=== PATIENT | female | born 1965 | race Caucasian/White ===

== ENCOUNTER → 2016-08-26 | Outpatient (REF) | payer OTHER ==
[~2016-08-26] MED LIST: /CARB20TAB PO; /METO25TAB PO; ATOR1TAB21 PO; BP MED PO; CYCL10TA3 PO; DILA4TAB PO; GABA300C2 PO; GABA600T PO; HYDROCODONE-ACETAMIN PO; IBUP80TA PO; IBUPPOW25 PO; LISI10TA4 PO; LISI5TAB PO; LYRI75CA PO; MECL-68 PO; METF1000 PO; METF500T4 PO; METO50TA2 PO; PERC5TAB PO; PRAV40TA2 PO; ROPI2TAB PO; TIZA4CAP PO; ULTR50TA PO; VITA100066 PO; ZEST10TA4 PO; ZOFR20TA PO; vitamin b12
[2016-08-26 14:20] LABS: VITAMIN B12 LEVEL 1209 PG/ML
[2016-08-26 14:26] LABS: FREE T4 1.05 NG/DL (0.76-1.46); TOTAL PROTEIN 7.4 GM/DL (6.4-8.2)
[2016-08-26 14:33] LABS: FOLATE 21.7 NG/ML
[2016-08-29 11:11] LABS: ALBUMIN % 55.5 % (55.8-66.1)
[2016-08-29 11:12] LABS: ALBUMIN 4.11 GM/DL (3.29-5.55)
== END | disposition home or self-care (01) ==
LOC: M LABNEURO 13:06
PROVIDERS: ATTEND Psychiatry & Neurology Neurology
DX: G43.909 Migraine, unspecified, not intractable, without status migrainosus (principal); R41.3 Other amnesia

== ENCOUNTER → 2016-10-16 | Outpatient (REF) | payer OTHER ==
[2016-10-16 13:00] LABS: ALBUMIN 3.8 GM/DL (3.2-5.2); ALBUMIN/GLOBULIN RATIO 1.09 (1.00-1.93); ALKALINE PHOSPHATASE 95 U/L (45-117); ALT/SGPT 39 U/L (12-78); ANION GAP 7 MEQ/L (8-16); AST/SGOT 24 U/L (15-37); BILIRUBIN,TOTAL 0.3 MG/DL (0.2-1.0); BLOOD UREA NITROGEN 14 MG/DL (7-18); CALCIUM LEVEL 8.8 MG/DL (8.5-10.1); CARBON DIOXIDE LEVEL 31 MEQ/L (21-32); CHLORIDE LEVEL 105 MEQ/L (98-107); CHOLESTEROL LEVEL 199 MG/DL (<200); GLOMERULAR FILTRATION RATE > 60.0 (>51); GLUCOSE, FASTING 124 MG/DL (70-105); POTASSIUM SERUM 4.9 MEQ/L (3.5-5.1); SODIUM LEVEL 143 MEQ/L (136-145); TOTAL PROTEIN 7.3 GM/DL (6.4-8.2); TRIGLYCERIDES LEVEL 227 MG/DL (<150)
== END ==
LOC: M LAB REF 12:19
PROVIDERS: ATTEND Family Medicine
DX: E11.40 Type 2 diabetes mellitus with diabetic neuropathy, unspecified (principal); I10 Essential (primary) hypertension; E78.01 Familial hypercholesterolemia; R00.2 Palpitations

== ENCOUNTER 2016-11-24 22:59 | Emergency (ER) | payer BC, OTHER ==
[~2016-11-24] VITALS: Ht 165.1 cm; Wt 93.0 kg
[2016-11-24] MEDS ORDERED: HALOPERIDOL 5 MG/ML VIAL (J1630) IV STA (23:40)
[2016-11-24] MEDS ORDERED: diphenhydrAMINE INJ 50MG/ML VIAL (J1200) IV STA (23:40)
[2016-11-24] MEDS ORDERED: NS 500 ML IV ONE (23:45)
[2016-11-25] MEDS ORDERED: hydrALAZINE INJ 20 MG/ML VIAL IV ONE (00:45)
[2016-11-25 01:30] VITALS: BP 119/62
== END 2016-11-25 01:37 | disposition home or self-care (01) ==
LOC: M ED 23:00
DX: R42 Dizziness and giddiness (principal); R11.2 Nausea with vomiting, unspecified; I10 Essential (primary) hypertension; G50.0 Trigeminal neuralgia; I67.1 Cerebral aneurysm, nonruptured; Z79.899 Other long term (current) drug therapy; Z79.84 Long term (current) use of oral hypoglycemic drugs
CPT/HCPCS: 96361; 96374; 96375; 99282; J1200; J1630

== ENCOUNTER → 2017-08-28 | Outpatient (CLI) | payer BC, OTHER ==
[2017-08-28 18:48] LABS: BLOOD UREA NITROGEN 11 MG/DL (7-18)
[2017-08-28 18:48] LABS: CREATININE FOR GFR 0.65 MG/DL (0.55-1.02); GLOMERULAR FILTRATION RATE > 60.0 (>51)
== END ==
LOC: M LAB 17:12
DX: Z01.818 Encounter for other preprocedural examination (principal)
CPT/HCPCS: 82565

== ENCOUNTER → 2017-09-12 | Outpatient (REF) | payer OTHER | LOC: M SFHCWAGY 08:44 | DX: Z12.4 Encounter for screening for malignant neoplasm of cervix (principal) ==

== ENCOUNTER → 2017-09-12 | Outpatient (CLI) | payer BC | LOC: M WHC 08:19 | DX: Z12.31 Encounter for screening mammogram for malignant neoplasm of breast (principal) | CPT/HCPCS: 77067 ==

== ENCOUNTER 2017-11-17 16:38 | Inpatient (IN) | payer BC, OTHER ==
[2017-11-17 18:47] LABS: BASO % 0.5 % (0.0-1.0); EOS # 0.1 10^3/uL (0.0-0.50); HEMATOCRIT 36.4 % (36.0-47.0); HEMOGLOBIN 12.4 g/dl (12.0-15.5); IMMATURE GRANULOCYTE % 0.2 % (0-3.0); LYMPH # 3.3 10^3/uL (1.5-4.5); LYMPH % 50.4 % (24.0-44.0); MEAN CORPUSCULAR HEMOGLOBIN 30.3 pg (27.0-33.0); MEAN CORPUSCULAR HGB CONC 34.1 g/dl (32.0-36.5); MONO # 0.5 10^3/uL (0.0-0.8); MONO % 8.1 % (0.0-5.0); NEUTROPHILS # 2.6 10^3/uL (1.8-7.7); NEUTROPHILS % 38.8 % (36.0-66.0); PLATELET COUNT, AUTOMATED 249 10^3/uL (150-450); RED BLOOD COUNT 4.09 10^6/uL (4.00-5.40); RED CELL DISTRIBUTION WIDTH 13.1 % (11.5-14.5); WHITE BLOOD COUNT 6.6 10^3/uL (4.0-10.0)
[2017-11-17] MEDS: diazePAM 5 MG TAB PO (18:56)
[2017-11-17] MEDS: KETOROLAC 30 MG/ML VIAL (J1885) IV (18:57)
[2017-11-17] MEDS ORDERED: MORPHINE 4 MG/ML 1ML VIAL/SYRINGE (J2270) IV (19:15)
[2017-11-17 19:18] LABS: ANION GAP 7 MEQ/L (8-16); BLOOD UREA NITROGEN 13 MG/DL (7-18); CARBON DIOXIDE LEVEL 26 MEQ/L (21-32); CHLORIDE LEVEL 109 MEQ/L (98-107); CREATININE FOR GFR 0.66 MG/DL (0.55-1.30); GLOMERULAR FILTRATION RATE > 60.0 (>51); GLUCOSE, FASTING 124 MG/DL (70-100); POTASSIUM SERUM 3.7 MEQ/L (3.5-5.1); SODIUM LEVEL 142 MEQ/L (136-145)
[2017-11-17] MEDS ORDERED: ACETAMINOPHEN TAB 650MG DOSE (2X325MG) PO (20:15)
[2017-11-17] MEDS ORDERED: DEXTROSE 50% 50 ML SYRINGE IV (20:15)
[2017-11-17] MEDS ORDERED: GLUCOSE 4 GM CHEW TABLET PO (20:15)
[2017-11-17] MEDS ORDERED: GLUCAGON FOR INJ 1 MG VIAL (J1610) SC (20:15)
[2017-11-17] MEDS ORDERED: diazePAM 5 MG TAB PO (20:30)
[2017-11-17] MEDS: MORPHINE 4 MG/ML 1ML VIAL/SYRINGE (J2270) IV (20:50)
[2017-11-17] MEDS: HumaLOG INSULIN (NovoLOG) PER UNIT SC (21:00)
[2017-11-17] MEDS ORDERED: NAPROXEN 250 MG TAB PO (22:00)
[2017-11-17] MEDS ORDERED: PILL CRUSHER/CUTTER 1 EACH XX (22:30)
[2017-11-17] MEDS: rOPINIRole 1MG TAB PO (22:55)
[2017-11-17] MEDS: VITAMIN D 1,000 INTERNATIONAL UNITS TABLET PO (22:55)
[2017-11-17] MEDS: GABAPENTIN 300 MG CAP PO (22:56)
[2017-11-17] MEDS: LISINOPRIL 10 MG TAB PO (22:58)
[2017-11-17] MEDS: DOCUSATE SODIUM 100 MG CAP PO (22:59)
[2017-11-17] MEDS: MECLIZINE 25 MG TABLET PO (23:00)
[2017-11-17] MEDS: busPIRone 5 MG TAB PO (23:27)
[2017-11-18] MEDS: PERCOCET 5MG/325MG TAB PO ×4 (02:49→23:24)
[2017-11-18] MEDS: MECLIZINE 25 MG TABLET PO ×4 (05:27→23:22)
[2017-11-18 06:28] LABS: HEMOGLOBIN 11.8 g/dl (12.0-15.5); MEAN CORPUSCULAR HEMOGLOBIN 29.8 pg (27.0-33.0); MEAN CORPUSCULAR HGB CONC 32.8 g/dl (32.0-36.5); MEAN CORPUSCULAR VOLUME 90.9 fl (80.0-96.0); PLATELET COUNT, AUTOMATED 244 10^3/uL (150-450); RED BLOOD COUNT 3.96 10^6/uL (4.00-5.40); RED CELL DISTRIBUTION WIDTH 13.1 % (11.5-14.5); WHITE BLOOD COUNT 6.8 10^3/uL (4.0-10.0)
[2017-11-18 06:41] LABS: ANION GAP 5 MEQ/L (8-16); BLOOD UREA NITROGEN 14 MG/DL (7-18); CALCIUM LEVEL 8.9 MG/DL (8.5-10.1); CARBON DIOXIDE LEVEL 29 MEQ/L (21-32); CHLORIDE LEVEL 108 MEQ/L (98-107); CREATININE FOR GFR 0.79 MG/DL (0.55-1.30); GLOMERULAR FILTRATION RATE > 60.0 (>51); GLUCOSE, FASTING 153 MG/DL (70-100); POTASSIUM SERUM 4.3 MEQ/L (3.5-5.1); SODIUM LEVEL 142 MEQ/L (136-145)
[2017-11-18 06:44] LABS: BEDSIDE GLUCOSE 115 MG/DL (70-105)
[2017-11-18] MEDS: HumaLOG INSULIN (NovoLOG) PER UNIT SC ×4 (07:30→21:00)
[2017-11-18] MEDS: DOCUSATE SODIUM 100 MG CAP PO ×2 (08:48→20:37)
[2017-11-18] MEDS: MORPHINE 4 MG/ML 1ML VIAL/SYRINGE (J2270) IV ×3 (08:48→20:39)
[2017-11-18] MEDS: ENOXAPARIN 40 MG/0.4 ML SYRINGE (J1650) SC (08:49)
[2017-11-18] MEDS: busPIRone 5 MG TAB PO ×2 (08:49→20:38)
[2017-11-18 12:03] LABS: BEDSIDE GLUCOSE 176 MG/DL (70-105)
[2017-11-18] MEDS: ONDANSETRON 4MG/2ML VIAL (J2405) IV ×3 (12:57→20:38)
[2017-11-18 17:22] LABS: BEDSIDE GLUCOSE 121 MG/DL (70-105)
[2017-11-18] MEDS: GABAPENTIN 300 MG CAP PO (20:36)
[2017-11-18] MEDS: VITAMIN D 1,000 INTERNATIONAL UNITS TABLET PO (20:38)
[2017-11-18] MEDS: rOPINIRole 1MG TAB PO (20:39)
[2017-11-18] MEDS: LISINOPRIL 10 MG TAB PO (20:41)
[2017-11-18 22:15] LABS: BEDSIDE GLUCOSE 151 MG/DL (70-105)
[2017-11-19] MEDS: MECLIZINE 25 MG TABLET PO ×2 (06:00→12:18)
[2017-11-19] MEDS: PERCOCET 5MG/325MG TAB PO ×2 (06:23→17:15)
[2017-11-19] MEDS: CARISOPRODOL 350 MG TAB PO (06:52)
[2017-11-19 07:08] LABS: HEMATOCRIT 36.4 % (36.0-47.0); HEMOGLOBIN 11.8 g/dl (12.0-15.5); MEAN CORPUSCULAR HEMOGLOBIN 29.6 pg (27.0-33.0); MEAN CORPUSCULAR HGB CONC 32.4 g/dl (32.0-36.5); MEAN CORPUSCULAR VOLUME 91.5 fl (80.0-96.0); PLATELET COUNT, AUTOMATED 243 10^3/uL (150-450); RED BLOOD COUNT 3.98 10^6/uL (4.00-5.40); RED CELL DISTRIBUTION WIDTH 13.2 % (11.5-14.5); WHITE BLOOD COUNT 6.1 10^3/uL (4.0-10.0)
[2017-11-19 07:26] LABS: ANION GAP 3 MEQ/L (8-16); BLOOD UREA NITROGEN 13 MG/DL (7-18); CALCIUM LEVEL 8.6 MG/DL (8.5-10.1); CARBON DIOXIDE LEVEL 30 MEQ/L (21-32); CHLORIDE LEVEL 110 MEQ/L (98-107); CREATININE FOR GFR 0.66 MG/DL (0.55-1.30); GLOMERULAR FILTRATION RATE > 60.0 (>51); GLUCOSE, FASTING 114 MG/DL (70-100); POTASSIUM SERUM 4.2 MEQ/L (3.5-5.1); SODIUM LEVEL 143 MEQ/L (136-145)
[2017-11-19] MEDS: HumaLOG INSULIN (NovoLOG) PER UNIT SC ×4 (08:07→20:59)
[2017-11-19] MEDS: NALOXONE INJ 0.4 MG/1 ML VIAL (J2310) IV (08:13)
[2017-11-19] MEDS: DOCUSATE SODIUM 100 MG CAP PO ×2 (08:14→20:57)
[2017-11-19] MEDS ORDERED: GABAPENTIN 300 MG CAP PO ×2 (09:00→12:00)
[2017-11-19 12:12] LABS: BEDSIDE GLUCOSE 90 MG/DL (70-105)
[2017-11-19 16:31] LABS: BEDSIDE GLUCOSE 141 MG/DL (70-105)
[2017-11-19] MEDS ORDERED: MECLIZINE 25 MG TABLET PO (17:00)
[2017-11-19] MEDS ORDERED: tiZANidine 4 MG TAB PO (17:00)
[2017-11-19] MEDS ORDERED: MELOXICAM (MOBIC) 7.5 MG TAB PO (17:00)
[2017-11-19] MEDS: GABAPENTIN 300 MG CAP PO (20:54)
[2017-11-19] MEDS: LISINOPRIL 10 MG TAB PO (20:54)
[2017-11-19] MEDS: rOPINIRole 1MG TAB PO (20:54)
[2017-11-19] MEDS: VITAMIN D 1,000 INTERNATIONAL UNITS TABLET PO (20:55)
[2017-11-20] MEDS: PERCOCET 5MG/325MG TAB PO ×4 (02:17→22:42)
[2017-11-20] MEDS: MORPHINE 4 MG/ML 1ML VIAL/SYRINGE (J2270) IV ×2 (03:44→06:55)
[2017-11-20 06:48] LABS: HEMATOCRIT 37.3 % (36.0-47.0); HEMOGLOBIN 11.9 g/dl (12.0-15.5); MEAN CORPUSCULAR HEMOGLOBIN 29.6 pg (27.0-33.0); MEAN CORPUSCULAR HGB CONC 31.9 g/dl (32.0-36.5); MEAN CORPUSCULAR VOLUME 92.8 fl (80.0-96.0); PLATELET COUNT, AUTOMATED 242 10^3/uL (150-450); RED BLOOD COUNT 4.02 10^6/uL (4.00-5.40); RED CELL DISTRIBUTION WIDTH 12.6 % (11.5-14.5); WHITE BLOOD COUNT 6.4 10^3/uL (4.0-10.0)
[2017-11-20] MEDS: D5W/0.45% SODIUM CHLORIDE 500 ML IV (06:55)
[2017-11-20 06:58] LABS: INR 1.01; PROTHROMBIN TIME 13.4 SECONDS (12.4-14.5)
[2017-11-20 07:12] LABS: ANION GAP 2 MEQ/L (8-16); BLOOD UREA NITROGEN 11 MG/DL (7-18); CALCIUM LEVEL 9.1 MG/DL (8.5-10.1); CARBON DIOXIDE LEVEL 34 MEQ/L (21-32); CHLORIDE LEVEL 105 MEQ/L (98-107); GLOMERULAR FILTRATION RATE > 60.0 (>51); GLUCOSE, FASTING 111 MG/DL (70-100); POTASSIUM SERUM 4.1 MEQ/L (3.5-5.1); SODIUM LEVEL 141 MEQ/L (136-145)
[2017-11-20] MEDS: HumaLOG INSULIN (NovoLOG) PER UNIT SC ×4 (07:30→20:33)
[2017-11-20] MEDS: DOCUSATE SODIUM 100 MG CAP PO ×2 (09:00→20:53)
[2017-11-20] MEDS ORDERED: methylPREDNISolone SUSP 40 MG/ML (DEPO-medrol) VIAL (J1030) As Ordered (10:36)
[2017-11-20] MEDS ORDERED: ISOVUE-M 300 61% 15ML VIAL (Q9967) As Ordered (10:36)
[2017-11-20] MEDS ORDERED: LIDOCAINE 1% SDV INJ 30 ML VIAL As Ordered (10:36)
[2017-11-20 12:23] LABS: BEDSIDE GLUCOSE 155 MG/DL (70-105)
[2017-11-20 13:47] LABS: BEDSIDE GLUCOSE 191 MG/DL (70-105)
[2017-11-20 18:08] LABS: BEDSIDE GLUCOSE 130 MG/DL (70-105)
[2017-11-20 20:33] LABS: BEDSIDE GLUCOSE 181 MG/DL (70-105)
[2017-11-20] MEDS: GABAPENTIN 300 MG CAP PO (20:52)
[2017-11-20] MEDS: LISINOPRIL 10 MG TAB PO (20:53)
[2017-11-20] MEDS: VITAMIN D 1,000 INTERNATIONAL UNITS TABLET PO (20:54)
[2017-11-20] MEDS: rOPINIRole 1MG TAB PO (20:54)
[2017-11-21] MEDS: PERCOCET 5MG/325MG TAB PO ×3 (03:17→12:38)
[2017-11-21 06:28] LABS: HEMATOCRIT 39.5 % (36.0-47.0); HEMOGLOBIN 13.2 g/dl (12.0-15.5); MEAN CORPUSCULAR HEMOGLOBIN 29.6 pg (27.0-33.0); MEAN CORPUSCULAR HGB CONC 33.4 g/dl (32.0-36.5); MEAN CORPUSCULAR VOLUME 88.6 fl (80.0-96.0); PLATELET COUNT, AUTOMATED 299 10^3/uL (150-450); RED BLOOD COUNT 4.46 10^6/uL (4.00-5.40); RED CELL DISTRIBUTION WIDTH 12.3 % (11.5-14.5); WHITE BLOOD COUNT 8.5 10^3/uL (4.0-10.0)
[2017-11-21 06:53] LABS: ANION GAP 4 MEQ/L (8-16); BLOOD UREA NITROGEN 13 MG/DL (7-18); CALCIUM LEVEL 9.7 MG/DL (8.5-10.1); CARBON DIOXIDE LEVEL 30 MEQ/L (21-32); CHLORIDE LEVEL 106 MEQ/L (98-107); CREATININE FOR GFR 0.68 MG/DL (0.55-1.30); GLOMERULAR FILTRATION RATE > 60.0 (>51); GLUCOSE, FASTING 152 MG/DL (70-100); POTASSIUM SERUM 4.5 MEQ/L (3.5-5.1); SODIUM LEVEL 140 MEQ/L (136-145)
[2017-11-21] MEDS: HumaLOG INSULIN (NovoLOG) PER UNIT SC ×4 (07:13→21:00)
[2017-11-21] MEDS: DOCUSATE SODIUM 100 MG CAP PO ×2 (08:04→20:41)
[2017-11-21 12:49] LABS: BEDSIDE GLUCOSE 185 MG/DL (70-105)
[2017-11-21] MEDS: NS 1,000 ML IV (16:19)
[2017-11-21] MEDS: KETOROLAC 30 MG/ML VIAL (J1885) IV (16:20)
[2017-11-21 20:13] LABS: BEDSIDE GLUCOSE 305 MG/DL (70-105)
[2017-11-21 20:13] LABS: BEDSIDE GLUCOSE 264 MG/DL (70-105)
[2017-11-21] MEDS: rOPINIRole 1MG TAB PO (20:41)
[2017-11-21] MEDS: LISINOPRIL 10 MG TAB PO (20:41)
[2017-11-21] MEDS: GABAPENTIN 300 MG CAP PO (20:41)
[2017-11-21] MEDS: VITAMIN D 1,000 INTERNATIONAL UNITS TABLET PO (20:41)
[2017-11-21 23:36] LABS: BEDSIDE GLUCOSE 260 MG/DL (70-105)
[2017-11-22] MEDS: KETOROLAC 30 MG/ML VIAL (J1885) IV ×2 (04:42→08:24)
[2017-11-22 06:00] LABS: HEMATOCRIT 37.1 % (36.0-47.0); HEMOGLOBIN 12.2 g/dl (12.0-15.5); MEAN CORPUSCULAR HEMOGLOBIN 29.7 pg (27.0-33.0); MEAN CORPUSCULAR HGB CONC 32.9 g/dl (32.0-36.5); MEAN CORPUSCULAR VOLUME 90.3 fl (80.0-96.0); PLATELET COUNT, AUTOMATED 269 10^3/uL (150-450); RED BLOOD COUNT 4.11 10^6/uL (4.00-5.40); RED CELL DISTRIBUTION WIDTH 12.7 % (11.5-14.5); WHITE BLOOD COUNT 8.3 10^3/uL (4.0-10.0)
[2017-11-22 06:27] LABS: ANION GAP 5 MEQ/L (8-16); BLOOD UREA NITROGEN 17 MG/DL (7-18); CALCIUM LEVEL 9.1 MG/DL (8.5-10.1); CARBON DIOXIDE LEVEL 27 MEQ/L (21-32); CHLORIDE LEVEL 109 MEQ/L (98-107); CREATININE FOR GFR 0.67 MG/DL (0.55-1.30); GLOMERULAR FILTRATION RATE > 60.0 (>51); GLUCOSE, FASTING 160 MG/DL (70-100); SODIUM LEVEL 141 MEQ/L (136-145)
[2017-11-22] MEDS: HumaLOG INSULIN (NovoLOG) PER UNIT SC (07:30)
[2017-11-22] MEDS: DOCUSATE SODIUM 100 MG CAP PO (08:23)
[2017-11-22] MEDS: tiZANidine 4 MG TAB PO (08:23)
== END 2017-11-22 10:33 | disposition home or self-care (01) | DRG 111 ==
LOC: M ED 16:38 → M ED INP 20:03 → M MSPAV 22:10
PROC: 3E0R33Z Introduction of Anti-inflammatory into Spinal Canal, Percutaneous Approach (ICD-10-PCS; principal; 2017-11-20)
DX: H81.13 Benign paroxysmal vertigo, bilateral (principal); I10 Essential (primary) hypertension; G50.0 Trigeminal neuralgia; E11.9 Type 2 diabetes mellitus without complications; E78.5 Hyperlipidemia, unspecified; R41.0 Disorientation, unspecified; K64.8 Other hemorrhoids; M62.838 Other muscle spasm; R26.81 Unsteadiness on feet; M25.552 Pain in left hip; M54.42 Lumbago with sciatica, left side; Z79.84 Long term (current) use of oral hypoglycemic drugs; Z98.1 Arthrodesis status; T40.2X5A Adverse effect of other opioids, initial encounter; T43.8X5A Adverse effect of other psychotropic drugs, initial encounter; T42.8X5A Adverse effect of antiparkinsonism drugs and other central muscle-tone depressants, initial encounter; Z79.899 Other long term (current) drug therapy

== ENCOUNTER → 2017-12-01 | Outpatient (CLI) | payer OTHER | LOC: M PAIN 09:45 | DX: M70.62 Trochanteric bursitis, left hip (principal); G47.33 Obstructive sleep apnea (adult) (pediatric); M51.26 Other intervertebral disc displacement, lumbar region; M54.16 Radiculopathy, lumbar region; M25.552 Pain in left hip; K58.9 Irritable bowel syndrome, unspecified; R42 Dizziness and giddiness; E11.9 Type 2 diabetes mellitus without complications; Z79.84 Long term (current) use of oral hypoglycemic drugs; Z79.891 Long term (current) use of opiate analgesic; Z79.899 Other long term (current) drug therapy | CPT/HCPCS: G0463 ==

== ENCOUNTER → 2017-12-04 | Outpatient (CLI) | payer BC, OTHER ==
[~2017-12-04] MED LIST changes: -/CARB20TAB PO; -/METO25TAB PO; -ATOR1TAB21 PO; -BP MED PO; +BUPIVACAINE HCL 0.25% 30 ML VIAL As Ordered; -CYCL10TA3 PO; -DILA4TAB PO; -GABA300C2 PO; -GABA600T PO; -HYDROCODONE-ACETAMIN PO; -IBUP80TA PO; -IBUPPOW25 PO; +ISOVUE-M 300 61% 15ML VIAL (Q9967) As Ordered; +LIDOCAINE 1% SDV INJ 30 ML VIAL As Ordered; -LISI10TA4 PO; -LISI5TAB PO; -LYRI75CA PO; -MECL-68 PO; -METF1000 PO; -METF500T4 PO; -METO50TA2 PO; -PERC5TAB PO; -PRAV40TA2 PO; -ROPI2TAB PO; -TIZA4CAP PO; +TRIAMCINOLONE ACETONIDE SUSP 40 MG/ML VIAL (J3301) As Ordered; -ULTR50TA PO; -VITA100066 PO; -ZEST10TA4 PO; -ZOFR20TA PO; +diazePAM 5 MG TAB As Ordered; +oxyCODONE 5MG TAB As Ordered; -vitamin b12
== END ==
LOC: M PAIN 11:00
DX: G89.29 Other chronic pain (principal); M70.62 Trochanteric bursitis, left hip; K58.9 Irritable bowel syndrome, unspecified; R42 Dizziness and giddiness; M54.5 Low back pain; E11.9 Type 2 diabetes mellitus without complications
CPT/HCPCS: J3301

== ENCOUNTER → 2017-12-11 | Outpatient (CLI) | payer BC, OTHER | LOC: M PAIN 14:15 | DX: M79.1 Myalgia (principal); M70.62 Trochanteric bursitis, left hip; G47.33 Obstructive sleep apnea (adult) (pediatric); M51.26 Other intervertebral disc displacement, lumbar region; M54.16 Radiculopathy, lumbar region; M25.552 Pain in left hip; E11.9 Type 2 diabetes mellitus without complications; R26.9 Unspecified abnormalities of gait and mobility; Z79.84 Long term (current) use of oral hypoglycemic drugs; Z79.899 Other long term (current) drug therapy; Z86.69 Personal history of other diseases of the nervous system and sense organs | CPT/HCPCS: G0463 ==

== ENCOUNTER 2017-12-15 18:43 | Observation (INO) | payer BC, OTHER ==
[2017-12-15] MEDS ORDERED: BISACODYL 5 MG TAB PO (19:45)
[2017-12-15] MEDS ORDERED: ONDANSETRON 4MG/2ML VIAL (J2405) IV (19:45)
[2017-12-15] MEDS ORDERED: ACETAMINOPHEN 500 MG TAB PO (19:45)
[2017-12-15 19:51] LABS: BASO % 0.3 % (0.0-1.0); EOS % 0.1 % (0.0-3.0); HEMATOCRIT 40.1 % (36.0-47.0); HEMOGLOBIN 13.2 g/dl (12.0-15.5); IMMATURE GRANULOCYTE % 0.4 % (0-3.0); LYMPH % 14.2 % (24.0-44.0); MEAN CORPUSCULAR HEMOGLOBIN 29.7 pg (27.0-33.0); MEAN CORPUSCULAR HGB CONC 32.9 g/dl (32.0-36.5); MEAN CORPUSCULAR VOLUME 90.3 fl (80.0-96.0); MONO # 0.2 10^3/uL (0.0-0.8); MONO % 2.7 % (0.0-5.0); NEUTROPHILS # 5.8 10^3/uL (1.8-7.7); NEUTROPHILS % 82.3 % (36.0-66.0); PLATELET COUNT, AUTOMATED 274 10^3/uL (150-450); RED BLOOD COUNT 4.44 10^6/uL (4.00-5.40); RED CELL DISTRIBUTION WIDTH 12.7 % (11.5-14.5); WHITE BLOOD COUNT 7.1 10^3/uL (4.0-10.0)
[2017-12-15 20:26] LABS: VITAMIN B12 LEVEL 730 PG/ML (247-911)
[2017-12-15 20:26] LABS: ALBUMIN 3.8 GM/DL (3.2-5.2); ALKALINE PHOSPHATASE 86 U/L (45-117); ALT/SGPT 36 U/L (12-78); ANION GAP 7 MEQ/L (8-16); AST/SGOT 20 U/L (7-37); BILIRUBIN,TOTAL 0.3 MG/DL (0.2-1.0); BLOOD UREA NITROGEN 12 MG/DL (7-18); CALCIUM LEVEL 8.8 MG/DL (8.5-10.1); CARBON DIOXIDE LEVEL 27 MEQ/L (21-32); CHLORIDE LEVEL 106 MEQ/L (98-107); CREATININE FOR GFR 0.96 MG/DL (0.55-1.30); GLOMERULAR FILTRATION RATE > 60.0 (>51); GLUCOSE, FASTING 228 MG/DL (70-100); MAGNESIUM LEVEL 2.4 MG/DL (1.8-2.4); POTASSIUM SERUM 4.5 MEQ/L (3.5-5.1); SODIUM LEVEL 140 MEQ/L (136-145); TOTAL PROTEIN 7.6 GM/DL (6.4-8.2)
[2017-12-15] MEDS ORDERED: PERCOCET 5MG/325MG TAB PO (20:45)
[2017-12-15] MEDS: ANALGESIC BALM CRM 120 GM TOP (21:00)
[2017-12-15] MEDS ORDERED: MECLIZINE 12.5 MG TAB PO (21:15)
[2017-12-16 00:01] LABS: BEDSIDE GLUCOSE 229 MG/DL (70-105)
[2017-12-16] MEDS ORDERED: DEXTROSE 50% 50 ML SYRINGE IV (00:15)
[2017-12-16] MEDS ORDERED: GLUCAGON FOR INJ 1 MG VIAL (J1610) SC (00:15)
[2017-12-16] MEDS ORDERED: GLUCOSE 4 GM CHEW TABLET PO (00:15)
[2017-12-16] MEDS: rOPINIRole 1MG TAB PO ×2 (00:30→21:15)
[2017-12-16] MEDS: HEPARIN SOD (PORCINE) 5000 UNITS/ML VIAL SC ×4 (00:30→21:14)
[2017-12-16] MEDS: busPIRone 5 MG TAB PO ×3 (00:30→21:16)
[2017-12-16] MEDS: GABAPENTIN 300 MG CAP PO ×4 (00:30→21:15)
[2017-12-16] MEDS: ATORVASTATIN 20 MG TAB PO ×2 (00:31→21:15)
[2017-12-16] MEDS: SENOKOT S TAB PO ×3 (00:31→21:15)
[2017-12-16] MEDS: LISINOPRIL 20 MG TAB PO ×2 (00:31→21:17)
[2017-12-16 06:38] LABS: BASO % 0.2 % (0.0-1.0); EOS % 0.1 % (0.0-3.0); HEMATOCRIT 39.8 % (36.0-47.0); HEMOGLOBIN 13.2 g/dl (12.0-15.5); IMMATURE GRANULOCYTE % 0.4 % (0-3.0); LYMPH # 1.6 10^3/uL (1.5-4.5); LYMPH % 18.9 % (24.0-44.0); MEAN CORPUSCULAR HGB CONC 33.2 g/dl (32.0-36.5); MEAN CORPUSCULAR VOLUME 90.5 fl (80.0-96.0); MONO # 0.6 10^3/uL (0.0-0.8); MONO % 6.6 % (0.0-5.0); NEUTROPHILS # 6.3 10^3/uL (1.8-7.7); NEUTROPHILS % 73.8 % (36.0-66.0); PLATELET COUNT, AUTOMATED 291 10^3/uL (150-450); RED CELL DISTRIBUTION WIDTH 12.6 % (11.5-14.5); WHITE BLOOD COUNT 8.5 10^3/uL (4.0-10.0)
[2017-12-16 06:58] LABS: ANION GAP 7 MEQ/L (8-16); BLOOD UREA NITROGEN 11 MG/DL (7-18); CALCIUM LEVEL 9.3 MG/DL (8.5-10.1); CARBON DIOXIDE LEVEL 27 MEQ/L (21-32); CHLORIDE LEVEL 106 MEQ/L (98-107); CREATININE FOR GFR 0.74 MG/DL (0.55-1.30); GLOMERULAR FILTRATION RATE > 60.0 (>51); GLUCOSE, FASTING 184 MG/DL (70-100); POTASSIUM SERUM 4.4 MEQ/L (3.5-5.1); SODIUM LEVEL 140 MEQ/L (136-145)
[2017-12-16] MEDS: HumaLOG INSULIN (NovoLOG) PER UNIT SC ×4 (07:50→21:15)
[2017-12-16] MEDS: ANALGESIC BALM CRM 120 GM TOP ×2 (09:38→21:18)
[2017-12-16 12:09] LABS: BEDSIDE GLUCOSE 360 MG/DL (70-105)
[2017-12-16 17:21] LABS: BEDSIDE GLUCOSE 257 MG/DL (70-105)
[2017-12-16 21:14] LABS: BEDSIDE GLUCOSE 281 MG/DL (70-105)
[2017-12-17] MEDS: HEPARIN SOD (PORCINE) 5000 UNITS/ML VIAL SC (05:24)
[2017-12-17 07:05] LABS: BASO % 0.4 % (0.0-1.0); EOS % 0.2 % (0.0-3.0); HEMATOCRIT 40.4 % (36.0-47.0); HEMOGLOBIN 13.1 g/dl (12.0-15.5); IMMATURE GRANULOCYTE % 0.4 % (0-3.0); LYMPH # 3.2 10^3/uL (1.5-4.5); LYMPH % 38.3 % (24.0-44.0); MEAN CORPUSCULAR HEMOGLOBIN 29.6 pg (27.0-33.0); MEAN CORPUSCULAR HGB CONC 32.4 g/dl (32.0-36.5); MEAN CORPUSCULAR VOLUME 91.2 fl (80.0-96.0); MONO # 0.8 10^3/uL (0.0-0.8); MONO % 9.1 % (0.0-5.0); NEUTROPHILS # 4.3 10^3/uL (1.8-7.7); NEUTROPHILS % 51.6 % (36.0-66.0); PLATELET COUNT, AUTOMATED 312 10^3/uL (150-450); RED BLOOD COUNT 4.43 10^6/uL (4.00-5.40); RED CELL DISTRIBUTION WIDTH 12.8 % (11.5-14.5); WHITE BLOOD COUNT 8.3 10^3/uL (4.0-10.0)
[2017-12-17 07:28] LABS: ANION GAP 5 MEQ/L (8-16); BLOOD UREA NITROGEN 14 MG/DL (7-18); CALCIUM LEVEL 9.3 MG/DL (8.5-10.1); CARBON DIOXIDE LEVEL 28 MEQ/L (21-32); CHLORIDE LEVEL 107 MEQ/L (98-107); CREATININE FOR GFR 0.71 MG/DL (0.55-1.30); GLOMERULAR FILTRATION RATE > 60.0 (>51); GLUCOSE, FASTING 147 MG/DL (70-100); POTASSIUM SERUM 4.5 MEQ/L (3.5-5.1); SODIUM LEVEL 140 MEQ/L (136-145)
[2017-12-17] MEDS: HumaLOG INSULIN (NovoLOG) PER UNIT SC (08:16)
[2017-12-17] MEDS: GABAPENTIN 300 MG CAP PO (08:16)
[2017-12-17] MEDS: SENOKOT S TAB PO (08:16)
[2017-12-17] MEDS: busPIRone 5 MG TAB PO (08:16)
[2017-12-17] MEDS: ANALGESIC BALM CRM 120 GM TOP (08:17)
[2017-12-21] MEDS ORDERED: VITAMIN D 50,000 UNITS CAPSULE (ERGOCALCIFEROL 1.25MG) PO (09:00)
== END 2017-12-17 10:25 | disposition home or self-care (01) ==
LOC: M ED 18:43 → M ED INP 18:44 → M MS5PR 23:54
DX: G57.02 Lesion of sciatic nerve, left lower limb (principal); T81.9XXA Unspecified complication of procedure, initial encounter; I10 Essential (primary) hypertension; E11.9 Type 2 diabetes mellitus without complications; R42 Dizziness and giddiness; E55.9 Vitamin D deficiency, unspecified; G50.0 Trigeminal neuralgia; E78.4 Other hyperlipidemia; M25.552 Pain in left hip; Z98.1 Arthrodesis status; E66.9 Obesity, unspecified; Z79.899 Other long term (current) drug therapy; Z79.84 Long term (current) use of oral hypoglycemic drugs; R26.89 Other abnormalities of gait and mobility; F41.9 Anxiety disorder, unspecified
CPT/HCPCS: 73564

== ENCOUNTER → 2017-12-15 | Outpatient (CLI) | payer BC, OTHER | LOC: M PAIN 10:45 | DX: G89.29 Other chronic pain (principal); M54.5 Low back pain; M79.1 Myalgia; E11.9 Type 2 diabetes mellitus without complications; E55.9 Vitamin D deficiency, unspecified; Z79.84 Long term (current) use of oral hypoglycemic drugs; Z79.899 Other long term (current) drug therapy; Z86.69 Personal history of other diseases of the nervous system and sense organs | CPT/HCPCS: J3301 ==

== ENCOUNTER → 2017-12-26 | Outpatient (CLI) | payer BC, OTHER | LOC: M RAD 11:27 | DX: M25.572 Pain in left ankle and joints of left foot (principal) ==

== ENCOUNTER → 2017-12-26 | Outpatient (CLI) | payer BC, OTHER | LOC: M PAIN 09:30 | DX: M79.1 Myalgia (principal); M70.62 Trochanteric bursitis, left hip; G47.33 Obstructive sleep apnea (adult) (pediatric); M51.26 Other intervertebral disc displacement, lumbar region; M54.16 Radiculopathy, lumbar region; M25.552 Pain in left hip; R26.9 Unspecified abnormalities of gait and mobility; M25.572 Pain in left ankle and joints of left foot; E11.9 Type 2 diabetes mellitus without complications; E55.9 Vitamin D deficiency, unspecified; Z79.84 Long term (current) use of oral hypoglycemic drugs; Z79.899 Other long term (current) drug therapy; Z86.69 Personal history of other diseases of the nervous system and sense organs | CPT/HCPCS: G0463 ==

== ENCOUNTER → 2017-12-31 | Outpatient (CLI) | payer BC, OTHER ==
[~2017-12-31] MED LIST changes: -ISOVUE-M 300 61% 15ML VIAL (Q9967) As Ordered
== END ==
LOC: M PAIN 11:00
DX: G89.29 Other chronic pain (principal); M70.62 Trochanteric bursitis, left hip; E11.9 Type 2 diabetes mellitus without complications; E55.9 Vitamin D deficiency, unspecified; Z79.84 Long term (current) use of oral hypoglycemic drugs; Z79.899 Other long term (current) drug therapy; Z86.69 Personal history of other diseases of the nervous system and sense organs
CPT/HCPCS: J3301

== ENCOUNTER → 2018-01-20 | Outpatient (CLI) | payer BC, OTHER | LOC: M SLEEP 19:47 | DX: G47.33 Obstructive sleep apnea (adult) (pediatric) (principal); G47.61 Periodic limb movement disorder | CPT/HCPCS: 95810 ==

== ENCOUNTER → 2018-02-03 | Outpatient (CLI) | payer OTHER | LOC: M PAIN 14:30 | DX: M25.552 Pain in left hip (principal); M70.62 Trochanteric bursitis, left hip; G89.29 Other chronic pain; E11.9 Type 2 diabetes mellitus without complications; E55.9 Vitamin D deficiency, unspecified; Z79.84 Long term (current) use of oral hypoglycemic drugs; Z86.69 Personal history of other diseases of the nervous system and sense organs | CPT/HCPCS: G0463 ==

== ENCOUNTER → 2018-02-05 | Outpatient (CLI) | payer BC, OTHER ==
[~2018-02-05] MED LIST changes: +ISOVUE-M 300 61% 15ML VIAL (Q9967) As Ordered; +diphenhydrAMINE 25 MG CAP As Ordered
[2018-02-05 16:37] LABS: BEDSIDE GLUCOSE 176 MG/DL (70-105)
== END ==
LOC: M PAIN 12:30
DX: M25.552 Pain in left hip (principal); E11.9 Type 2 diabetes mellitus without complications; E55.9 Vitamin D deficiency, unspecified; Z79.84 Long term (current) use of oral hypoglycemic drugs; Z79.899 Other long term (current) drug therapy; Z86.69 Personal history of other diseases of the nervous system and sense organs
CPT/HCPCS: J3301

== ENCOUNTER → 2018-02-25 | Outpatient (CLI) | payer BC, OTHER ==
[~2018-02-25] MED LIST changes: -BUPIVACAINE HCL 0.25% 30 ML VIAL As Ordered; -TRIAMCINOLONE ACETONIDE SUSP 40 MG/ML VIAL (J3301) As Ordered; -diazePAM 5 MG TAB As Ordered; -diphenhydrAMINE 25 MG CAP As Ordered; +methylPREDNISolone SUSP 40 MG/ML (DEPO-medrol) VIAL (J1030) As Ordered; -oxyCODONE 5MG TAB As Ordered
== END ==
LOC: M PAIN 09:15
DX: G89.29 Other chronic pain (principal); M51.16 Intervertebral disc disorders with radiculopathy, lumbar region; E11.9 Type 2 diabetes mellitus without complications; E55.9 Vitamin D deficiency, unspecified; Z79.84 Long term (current) use of oral hypoglycemic drugs; Z79.899 Other long term (current) drug therapy; Z86.69 Personal history of other diseases of the nervous system and sense organs
CPT/HCPCS: J1030

== ENCOUNTER → 2018-03-04 | Outpatient (CLI) | payer BC | LOC: M WHC 14:59 | DX: N95.0 Postmenopausal bleeding (principal); D25.9 Leiomyoma of uterus, unspecified | CPT/HCPCS: 76830 ==

== ENCOUNTER → 2018-03-12 | Outpatient (REF) | payer OTHER | LOC: M SFHCWAGY 14:37 | DX: N95.0 Postmenopausal bleeding (principal) | CPT/HCPCS: 88304 ==

== ENCOUNTER → 2018-03-19 | Outpatient (CLI) | payer OTHER | LOC: M PAIN 10:45 | DX: M79.1 Myalgia (principal); M70.62 Trochanteric bursitis, left hip; G47.33 Obstructive sleep apnea (adult) (pediatric); M51.26 Other intervertebral disc displacement, lumbar region; M54.16 Radiculopathy, lumbar region; M25.552 Pain in left hip; R26.9 Unspecified abnormalities of gait and mobility; M25.572 Pain in left ankle and joints of left foot; K58.9 Irritable bowel syndrome, unspecified; R42 Dizziness and giddiness; Z79.84 Long term (current) use of oral hypoglycemic drugs; Z79.899 Other long term (current) drug therapy | CPT/HCPCS: G0463 ==

== ENCOUNTER → 2018-04-13 | Outpatient (CLI) | payer OTHER | LOC: M PAIN 15:00 | DX: M51.16 Intervertebral disc disorders with radiculopathy, lumbar region (principal); G89.29 Other chronic pain; E11.9 Type 2 diabetes mellitus without complications; Z79.84 Long term (current) use of oral hypoglycemic drugs; Z79.899 Other long term (current) drug therapy; Z86.69 Personal history of other diseases of the nervous system and sense organs | CPT/HCPCS: G0463 ==

== ENCOUNTER → 2018-04-15 | Outpatient (CLI) | payer BC, OTHER | LOC: M PAIN 10:30 | DX: G89.29 Other chronic pain (principal); M51.16 Intervertebral disc disorders with radiculopathy, lumbar region; E11.9 Type 2 diabetes mellitus without complications; E55.9 Vitamin D deficiency, unspecified; Z79.84 Long term (current) use of oral hypoglycemic drugs; Z79.899 Other long term (current) drug therapy; Z86.69 Personal history of other diseases of the nervous system and sense organs | CPT/HCPCS: J1030 ==

== ENCOUNTER → 2018-04-22 | Outpatient (CLI) | payer OTHER | LOC: M PAIN 14:30 | DX: M25.552 Pain in left hip (principal); E11.9 Type 2 diabetes mellitus without complications; K58.9 Irritable bowel syndrome, unspecified; Z79.84 Long term (current) use of oral hypoglycemic drugs; Z79.899 Other long term (current) drug therapy | CPT/HCPCS: G0463 ==

== ENCOUNTER → 2018-05-13 | Outpatient (CLI) | payer OTHER | LOC: M PAIN 13:00 | DX: M25.552 Pain in left hip (principal); M51.16 Intervertebral disc disorders with radiculopathy, lumbar region; K58.9 Irritable bowel syndrome, unspecified; R42 Dizziness and giddiness; E11.9 Type 2 diabetes mellitus without complications; Z79.4 Long term (current) use of insulin; Z79.899 Other long term (current) drug therapy | CPT/HCPCS: G0463 ==

== ENCOUNTER 2018-06-19 11:09 | Inpatient (IN) | payer BC, OTHER ==
[2018-06-19] MEDS: MORPHINE 4 MG/ML 1ML VIAL/SYRINGE (J2270) IM ×4 (11:45→14:11)
[2018-06-19] MEDS ORDERED: DEXTROSE 50% 50 ML SYRINGE IV (15:45)
[2018-06-19] MEDS ORDERED: GLUCOSE 4 GM CHEW TABLET PO (15:45)
[2018-06-19] MEDS ORDERED: ACETAMINOPHEN TAB 650MG DOSE (2X325MG) PO (15:45)
[2018-06-19] MEDS ORDERED: GLUCAGON FOR INJ 1 MG VIAL (J1610) SC (15:45)
[2018-06-19 16:08] LABS: HEMATOCRIT 42.4 % (36.0-47.0); HEMOGLOBIN 13.9 g/dl (12.0-15.5); MEAN CORPUSCULAR HGB CONC 32.8 g/dl (32.0-36.5); MEAN CORPUSCULAR VOLUME 91.6 fl (80.0-96.0); PLATELET COUNT, AUTOMATED 282 10^3/uL (150-450); RED BLOOD COUNT 4.63 10^6/uL (4.00-5.40); RED CELL DISTRIBUTION WIDTH 12.9 % (11.5-14.5)
[2018-06-19] MEDS: KETOROLAC 30 MG/ML VIAL (J1885) IV (16:11)
[2018-06-19 16:29] LABS: ANION GAP 9 MEQ/L (8-16); BLOOD UREA NITROGEN 9 MG/DL (7-18); C REACTIVE PROTEIN QUANTITATIV 1.73 MG/DL (0.00-0.30); CALCIUM LEVEL 9.5 MG/DL (8.5-10.1); CARBON DIOXIDE LEVEL 26 MEQ/L (21-32); CHLORIDE LEVEL 104 MEQ/L (98-107); CREATININE FOR GFR 0.66 MG/DL (0.55-1.30); GLOMERULAR FILTRATION RATE > 60.0 (>51); GLUCOSE, FASTING 161 MG/DL (70-100); POTASSIUM SERUM 3.7 MEQ/L (3.5-5.1); SODIUM LEVEL 139 MEQ/L (136-145)
[2018-06-19] MEDS ORDERED: PILL CRUSHER/CUTTER 1 EACH XX (16:45)
[2018-06-19 17:29] LABS: BEDSIDE GLUCOSE 146 MG/DL (70-105)
[2018-06-19 18:30] LABS: ERYTHROCYTE SEDIMENTATION RATE 31 mm/hr (0-30)
[2018-06-19] MEDS: HumaLOG INSULIN (NovoLOG) PER UNIT SC ×2 (19:01→21:00)
[2018-06-19] MEDS ORDERED: DULoxetine 30 MG CAP (CYMBALTA) PO (21:00)
[2018-06-19 21:23] LABS: BEDSIDE GLUCOSE 238 MG/DL (70-105)
[2018-06-19] MEDS: DULoxetine 30 MG CAP (CYMBALTA) PO (22:24)
[2018-06-19] MEDS: DIVALPROEX 500MG *ER* TAB PO (22:24)
[2018-06-19] MEDS: GABAPENTIN 300 MG CAP PO (22:25)
[2018-06-19] MEDS: LISINOPRIL 20 MG TAB PO (22:25)
[2018-06-19] MEDS: ATORVASTATIN 20 MG TAB PO (22:25)
[2018-06-19] MEDS: busPIRone 5 MG TAB PO (22:25)
[2018-06-19] MEDS: CARISOPRODOL 350 MG TAB PO (22:26)
[2018-06-20] MEDS: rOPINIRole 1MG TAB PO ×2 (00:20→20:54)
[2018-06-20] MEDS: KETOROLAC 30 MG/ML VIAL (J1885) IV ×3 (00:20→15:06)
[2018-06-20] MEDS: HEPARIN SOD (PORCINE) 5000 UNITS/ML VIAL SC ×3 (06:01→20:54)
[2018-06-20 06:24] LABS: HEMATOCRIT 36.9 % (36.0-47.0); MEAN CORPUSCULAR HEMOGLOBIN 29.6 pg (27.0-33.0); MEAN CORPUSCULAR VOLUME 92.7 fl (80.0-96.0); PLATELET COUNT, AUTOMATED 254 10^3/uL (150-450); RED BLOOD COUNT 3.98 10^6/uL (4.00-5.40); RED CELL DISTRIBUTION WIDTH 12.9 % (11.5-14.5); WHITE BLOOD COUNT 5.3 10^3/uL (4.0-10.0)
[2018-06-20 06:40] LABS: HEMOGLOBIN 11.8 g/dl (12.0-15.5)
[2018-06-20 06:45] LABS: ANION GAP 9 MEQ/L (8-16); BLOOD UREA NITROGEN 16 MG/DL (7-18); CALCIUM LEVEL 9.6 MG/DL (8.5-10.1); CARBON DIOXIDE LEVEL 28 MEQ/L (21-32); CHLORIDE LEVEL 102 MEQ/L (98-107); CREATININE FOR GFR 0.79 MG/DL (0.55-1.30); GLOMERULAR FILTRATION RATE > 60.0 (>51); GLUCOSE, FASTING 259 MG/DL (70-100); POTASSIUM SERUM 3.9 MEQ/L (3.5-5.1); SODIUM LEVEL 139 MEQ/L (136-145)
[2018-06-20] MEDS ORDERED: PERCOCET 5MG/325MG TAB PO (08:00)
[2018-06-20] MEDS: DIVALPROEX 500MG *ER* TAB PO ×2 (08:24→20:53)
[2018-06-20] MEDS: DULoxetine 30 MG CAP (CYMBALTA) PO ×2 (08:24→20:53)
[2018-06-20] MEDS: busPIRone 5 MG TAB PO ×2 (08:25→20:52)
[2018-06-20] MEDS: GABAPENTIN 300 MG CAP PO ×3 (08:25→20:53)
[2018-06-20] MEDS: HumaLOG INSULIN (NovoLOG) PER UNIT SC ×4 (08:28→20:54)
[2018-06-20 11:45] LABS: BEDSIDE GLUCOSE 278 MG/DL (70-105)
[2018-06-20] MEDS: CARISOPRODOL 350 MG TAB PO (15:51)
[2018-06-20] MEDS ORDERED: MORPHINE 4 MG/ML 1ML VIAL/SYRINGE (J2270) IV (16:00)
[2018-06-20 17:41] LABS: BEDSIDE GLUCOSE 221 MG/DL (70-105)
[2018-06-20 20:45] LABS: BEDSIDE GLUCOSE 241 MG/DL (70-105)
[2018-06-20] MEDS: SENOKOT S TAB PO (20:53)
[2018-06-20] MEDS: ATORVASTATIN 20 MG TAB PO (20:53)
[2018-06-20] MEDS: LISINOPRIL 20 MG TAB PO (20:54)
[2018-06-21] MEDS: KETOROLAC 30 MG/ML VIAL (J1885) IV ×4 (00:04→23:57)
[2018-06-21 06:41] LABS: HEMATOCRIT 37.6 % (36.0-47.0); HEMOGLOBIN 11.9 g/dl (12.0-15.5); MEAN CORPUSCULAR HEMOGLOBIN 29.7 pg (27.0-33.0); MEAN CORPUSCULAR HGB CONC 31.6 g/dl (32.0-36.5); MEAN CORPUSCULAR VOLUME 93.8 fl (80.0-96.0); PLATELET COUNT, AUTOMATED 236 10^3/uL (150-450); RED BLOOD COUNT 4.01 10^6/uL (4.00-5.40); RED CELL DISTRIBUTION WIDTH 12.7 % (11.5-14.5); WHITE BLOOD COUNT 4.3 10^3/uL (4.0-10.0)
[2018-06-21] MEDS: HEPARIN SOD (PORCINE) 5000 UNITS/ML VIAL SC ×3 (06:46→21:34)
[2018-06-21] MEDS: CARISOPRODOL 350 MG TAB PO ×2 (06:46→17:37)
[2018-06-21 07:06] LABS: ANION GAP 5 MEQ/L (8-16); BLOOD UREA NITROGEN 16 MG/DL (7-18); CALCIUM LEVEL 9.1 MG/DL (8.5-10.1); CARBON DIOXIDE LEVEL 32 MEQ/L (21-32); CHLORIDE LEVEL 106 MEQ/L (98-107); CREATININE FOR GFR 0.82 MG/DL (0.55-1.30); GLOMERULAR FILTRATION RATE > 60.0 (>51); GLUCOSE, FASTING 234 MG/DL (70-100); POTASSIUM SERUM 4.2 MEQ/L (3.5-5.1); SODIUM LEVEL 143 MEQ/L (136-145)
[2018-06-21] MEDS: predniSONE 20 MG TAB PO (07:56)
[2018-06-21] MEDS: SENOKOT S TAB PO ×2 (07:57→21:32)
[2018-06-21] MEDS: DIVALPROEX 500MG *ER* TAB PO ×2 (07:57→21:31)
[2018-06-21] MEDS: busPIRone 5 MG TAB PO ×2 (07:57→21:33)
[2018-06-21] MEDS: DULoxetine 30 MG CAP (CYMBALTA) PO ×2 (07:57→21:32)
[2018-06-21] MEDS: GABAPENTIN 300 MG CAP PO ×3 (07:57→21:32)
[2018-06-21] MEDS: HumaLOG INSULIN (NovoLOG) PER UNIT SC ×4 (07:58→21:33)
[2018-06-21 16:48] LABS: BEDSIDE GLUCOSE 318 MG/DL (70-105)
[2018-06-21 21:09] LABS: BEDSIDE GLUCOSE 287 MG/DL (70-105)
[2018-06-21] MEDS: rOPINIRole 1MG TAB PO (21:31)
[2018-06-21] MEDS: LISINOPRIL 20 MG TAB PO (21:32)
[2018-06-21] MEDS: ATORVASTATIN 20 MG TAB PO (21:32)
[2018-06-22 02:22] LABS: BEDSIDE GLUCOSE 341 MG/DL (70-105)
[2018-06-22] MEDS: CARISOPRODOL 350 MG TAB PO ×2 (05:02→15:15)
[2018-06-22] MEDS: HEPARIN SOD (PORCINE) 5000 UNITS/ML VIAL SC ×2 (05:02→12:41)
[2018-06-22 06:17] LABS: HEMATOCRIT 35.5 % (36.0-47.0); HEMOGLOBIN 11.5 g/dl (12.0-15.5); MEAN CORPUSCULAR HEMOGLOBIN 29.9 pg (27.0-33.0); MEAN CORPUSCULAR HGB CONC 32.4 g/dl (32.0-36.5); MEAN CORPUSCULAR VOLUME 92.2 fl (80.0-96.0); PLATELET COUNT, AUTOMATED 251 10^3/uL (150-450); RED BLOOD COUNT 3.85 10^6/uL (4.00-5.40); RED CELL DISTRIBUTION WIDTH 12.6 % (11.5-14.5); WHITE BLOOD COUNT 7.6 10^3/uL (4.0-10.0)
[2018-06-22 06:32] LABS: ANION GAP 8 MEQ/L (8-16); BLOOD UREA NITROGEN 17 MG/DL (7-18); CARBON DIOXIDE LEVEL 29 MEQ/L (21-32); CHLORIDE LEVEL 104 MEQ/L (98-107); CREATININE FOR GFR 0.83 MG/DL (0.55-1.30); GLOMERULAR FILTRATION RATE > 60.0 (>51); GLUCOSE, FASTING 234 MG/DL (70-100); POTASSIUM SERUM 3.9 MEQ/L (3.5-5.1); SODIUM LEVEL 141 MEQ/L (136-145)
[2018-06-22] MEDS: HumaLOG INSULIN (NovoLOG) PER UNIT SC ×4 (08:06→22:16)
[2018-06-22] MEDS: busPIRone 5 MG TAB PO ×2 (08:07→22:19)
[2018-06-22] MEDS: DIVALPROEX 500MG *ER* TAB PO ×2 (08:07→22:17)
[2018-06-22] MEDS: GABAPENTIN 300 MG CAP PO ×3 (08:07→22:18)
[2018-06-22] MEDS: DULoxetine 30 MG CAP (CYMBALTA) PO ×2 (08:07→22:18)
[2018-06-22] MEDS: predniSONE 20 MG TAB PO (08:07)
[2018-06-22] MEDS: SENOKOT S TAB PO ×2 (08:07→22:18)
[2018-06-22] MEDS: KETOROLAC 30 MG/ML VIAL (J1885) IV (08:08)
[2018-06-22 12:38] LABS: BEDSIDE GLUCOSE 439 MG/DL (70-105)
[2018-06-22 16:40] LABS: BEDSIDE GLUCOSE 352 MG/DL (70-105)
[2018-06-22 20:58] LABS: BEDSIDE GLUCOSE 276 MG/DL (70-105)
[2018-06-22] MEDS: ATORVASTATIN 20 MG TAB PO (22:17)
[2018-06-22] MEDS: rOPINIRole 1MG TAB PO (22:17)
[2018-06-22] MEDS: LISINOPRIL 20 MG TAB PO (22:18)
[2018-06-23 06:41] LABS: HEMATOCRIT 36.5 % (36.0-47.0); HEMOGLOBIN 11.9 g/dl (12.0-15.5); MEAN CORPUSCULAR HEMOGLOBIN 30.1 pg (27.0-33.0); MEAN CORPUSCULAR HGB CONC 32.6 g/dl (32.0-36.5); MEAN CORPUSCULAR VOLUME 92.4 fl (80.0-96.0); PLATELET COUNT, AUTOMATED 259 10^3/uL (150-450); RED BLOOD COUNT 3.95 10^6/uL (4.00-5.40); RED CELL DISTRIBUTION WIDTH 12.7 % (11.5-14.5); WHITE BLOOD COUNT 8.2 10^3/uL (4.0-10.0)
[2018-06-23 07:03] LABS: ANION GAP 6 MEQ/L (8-16); BLOOD UREA NITROGEN 13 MG/DL (7-18); CARBON DIOXIDE LEVEL 30 MEQ/L (21-32); CHLORIDE LEVEL 105 MEQ/L (98-107); CREATININE FOR GFR 0.73 MG/DL (0.55-1.30); GLOMERULAR FILTRATION RATE > 60.0 (>51); GLUCOSE, FASTING 199 MG/DL (70-100); POTASSIUM SERUM 3.9 MEQ/L (3.5-5.1); SODIUM LEVEL 141 MEQ/L (136-145)
[2018-06-23] MEDS: predniSONE 10 MG TAB PO (08:20)
[2018-06-23] MEDS: DULoxetine 30 MG CAP (CYMBALTA) PO (08:20)
[2018-06-23] MEDS: busPIRone 5 MG TAB PO (08:20)
[2018-06-23] MEDS: SENOKOT S TAB PO (08:21)
[2018-06-23] MEDS: HumaLOG INSULIN (NovoLOG) PER UNIT SC ×2 (08:21→13:06)
[2018-06-23] MEDS: GABAPENTIN 300 MG CAP PO (08:21)
[2018-06-23] MEDS: DIVALPROEX 500MG *ER* TAB PO (08:21)
[2018-06-23 10:32] LABS: BEDSIDE GLUCOSE 184 MG/DL (70-105)
[2018-06-23] MEDS ORDERED: oxyCODONE 5MG TAB As Ordered (10:32)
[2018-06-23] MEDS ORDERED: methylPREDNISolone SUSP 40 MG/ML (DEPO-medrol) VIAL (J1030) As Ordered ×2 (10:32→10:37)
[2018-06-23] MEDS ORDERED: ISOVUE-M 300 61% 15ML VIAL (Q9967) As Ordered (10:33)
[2018-06-23] MEDS ORDERED: LIDOCAINE 1% SDV INJ 30 ML VIAL As Ordered (10:33)
[2018-06-23 12:46] LABS: BEDSIDE GLUCOSE 274 MG/DL (70-105)
== END 2018-06-23 13:55 | disposition home or self-care (01) | DRG 351 ==
LOC: M ED 11:09 → M ED INP 14:10 → M MS5PR 17:10
PROVIDERS: Hospitalist
PROC: 3E0R33Z Introduction of Anti-inflammatory into Spinal Canal, Percutaneous Approach (ICD-10-PCS; principal; 2018-06-23)
DX: M70.62 Trochanteric bursitis, left hip (principal); E11.42 Type 2 diabetes mellitus with diabetic polyneuropathy; E55.9 Vitamin D deficiency, unspecified; I10 Essential (primary) hypertension; G25.81 Restless legs syndrome; F41.9 Anxiety disorder, unspecified; E78.5 Hyperlipidemia, unspecified; M51.16 Intervertebral disc disorders with radiculopathy, lumbar region; G47.33 Obstructive sleep apnea (adult) (pediatric); R42 Dizziness and giddiness; E66.9 Obesity, unspecified; Z68.35 Body mass index [BMI] 35.0-35.9, adult; K58.9 Irritable bowel syndrome, unspecified; M76.62 Achilles tendinitis, left leg; G50.0 Trigeminal neuralgia; Z79.899 Other long term (current) drug therapy; Z79.84 Long term (current) use of oral hypoglycemic drugs

== ENCOUNTER → 2018-06-26 | Outpatient (CLI) | payer BC, OTHER | LOC: M EKG 12:20 | DX: Z01.818 Encounter for other preprocedural examination (principal); R03.0 Elevated blood-pressure reading, without diagnosis of hypertension; E78.00 Pure hypercholesterolemia, unspecified; E11.9 Type 2 diabetes mellitus without complications; G50.0 Trigeminal neuralgia; R42 Dizziness and giddiness | CPT/HCPCS: 93005 ==

== ENCOUNTER 2018-07-01 10:03 | Day surgery (SDC) | payer BC, OTHER ==
[~2018-07-01 10:03] MED LIST changes: +GLYCOPYRROLATE INJ 0.2 MG/ML 2 ML VIAL As Ordered; +HYDROmorphone HCL 2 MG/ML 1ML VIAL (J1170) As Ordered; -ISOVUE-M 300 61% 15ML VIAL (Q9967) As Ordered; +KETOROLAC 60 MG/2 ML VIAL (J1885) As Ordered; +LIDOCAINE 1% MDV 20ML VIAL SQ; -LIDOCAINE 1% SDV INJ 30 ML VIAL As Ordered; +LIDOCAINE 2% INJ 100 MG/5 ML SDV (FOR ANES.) As Ordered; +MIDAZOLAM INJ 2 MG/2 ML VIAL (J2250) As Ordered; +NEOSTIGMINE 10 MG/10 ML VIAL (J2710) As Ordered; +ONDANSETRON 4MG/2ML VIAL (J2405) As Ordered; +PROPOFOL 200 MG/20 ML VIAL As Ordered; +ROCURONIUM BROMIDE 50 MG/5 ML VIAL As Ordered; +dexameTHASONE 4 MG/ML 1ML VIAL (J1100) As Ordered; +fentaNYL 100 MCG/2 ML INJECTION (J3010) As Ordered; -methylPREDNISolone SUSP 40 MG/ML (DEPO-medrol) VIAL (J1030) As Ordered
[2018-07-01 10:31] LABS: HEMATOCRIT 43.7 % (36.0-47.0); HEMOGLOBIN 14.3 g/dl (12.0-15.5); MEAN CORPUSCULAR HEMOGLOBIN 30.2 pg (27.0-33.0); MEAN CORPUSCULAR HGB CONC 32.7 g/dl (32.0-36.5); MEAN CORPUSCULAR VOLUME 92.2 fl (80.0-96.0); PLATELET COUNT, AUTOMATED 327 10^3/uL (150-450); RED BLOOD COUNT 4.74 10^6/uL (4.00-5.40); RED CELL DISTRIBUTION WIDTH 12.8 % (11.5-14.5); WHITE BLOOD COUNT 7.7 10^3/uL (4.0-10.0)
[2018-07-01 10:54] LABS: ANION GAP 8 MEQ/L (8-16); BLOOD UREA NITROGEN 16 MG/DL (7-18); CALCIUM LEVEL 9.6 MG/DL (8.5-10.1); CARBON DIOXIDE LEVEL 30 MEQ/L (21-32); CHLORIDE LEVEL 99 MEQ/L (98-107); CREATININE FOR GFR 0.84 MG/DL (0.55-1.30); GLOMERULAR FILTRATION RATE > 60.0 (>51); GLUCOSE, FASTING 165 MG/DL (70-100); SODIUM LEVEL 137 MEQ/L (136-145)
[2018-07-01 10:59] LABS: BEDSIDE GLUCOSE 155 MG/DL (70-105)
[2018-07-01] MEDS: LR 1,000 ML IV ×3 (11:10→16:45)
[2018-07-01] MEDS: FLUORESCEIN 10% (100MG/ML) 5 ML VIAL As Ordered (13:25)
[2018-07-01] MEDS: ACETAMINOPHEN 650 MG SUPP As Ordered (13:38)
[2018-07-01] MEDS: ACETAMINOPHEN 650 MG SUPP PR (14:00)
[2018-07-01] MEDS ORDERED: METOPROLOL 5 MG/5 ML VIAL As Ordered (14:28)
[2018-07-01] MEDS ORDERED: FUROSEMIDE 100 MG/10 ML VIAL (J1940) As Ordered (15:10)
[2018-07-01] MEDS: BUPIVACAINE/EPIN 0.25% 30 ML VIAL As Ordered (15:27)
[2018-07-01] MEDS ORDERED: SUGAMMADEX SODIUM 500 MG/5 ML VIAL (BRIDION) As Ordered (15:56)
[2018-07-01] MEDS ORDERED: IBUPROFEN 800 MG TAB PO (16:00)
[2018-07-01] MEDS ORDERED: PERCOCET 5MG/325MG TAB PO ×2 (16:30→16:45)
[2018-07-01] MEDS ORDERED: fentaNYL 100 MCG/2 ML INJECTION (J3010) IV (16:45)
[2018-07-01] MEDS ORDERED: ONDANSETRON 4MG/2ML VIAL (J2405) IV (16:45)
[2018-07-01] MEDS ORDERED: diphenhydrAMINE INJ 50MG/ML VIAL (J1200) IV (16:45)
[2018-07-01] MEDS ORDERED: METOCLOPRAMIDE INJ 10MG/2ML VIAL (J2765) IV (16:45)
[2018-07-01] MEDS ORDERED: MEPERIDINE INJ 25 MG/ML VIAL (J2175) IV (16:45)
[2018-07-01] MEDS ORDERED: NALOXONE INJ 0.4 MG/1 ML VIAL (J2310) As Ordered (17:06)
[2018-07-01] MEDS: IBUPROFEN 800 MG TAB PO (20:05)
[2018-07-01] MEDS: SIMETHICONE 80 MG CHEW TAB PO (20:06)
[2018-07-02] MEDS: SIMETHICONE 80 MG CHEW TAB PO ×3 (00:07→11:14)
[2018-07-02] MEDS: IBUPROFEN 800 MG TAB PO ×3 (00:08→11:13)
[2018-07-02] MEDS: CEPACOL LOZENGE PO ×3 (04:35→12:45)
[2018-07-02 05:28] LABS: HEMATOCRIT 37.4 % (36.0-47.0); MEAN CORPUSCULAR HEMOGLOBIN 29.6 pg (27.0-33.0); MEAN CORPUSCULAR HGB CONC 32.1 g/dl (32.0-36.5); MEAN CORPUSCULAR VOLUME 92.1 fl (80.0-96.0); PLATELET COUNT, AUTOMATED 284 10^3/uL (150-450); RED BLOOD COUNT 4.06 10^6/uL (4.00-5.40); RED CELL DISTRIBUTION WIDTH 12.7 % (11.5-14.5); WHITE BLOOD COUNT 13.6 10^3/uL (4.0-10.0)
[2018-07-02 05:51] LABS: ANION GAP 7 MEQ/L (8-16); BLOOD UREA NITROGEN 14 MG/DL (7-18); CALCIUM LEVEL 8.6 MG/DL (8.5-10.1); CARBON DIOXIDE LEVEL 29 MEQ/L (21-32); CHLORIDE LEVEL 98 MEQ/L (98-107); CREATININE FOR GFR 0.78 MG/DL (0.55-1.30); GLOMERULAR FILTRATION RATE > 60.0 (>51); GLUCOSE, FASTING 216 MG/DL (70-100); POTASSIUM SERUM 4.3 MEQ/L (3.5-5.1); SODIUM LEVEL 134 MEQ/L (136-145)
[2018-07-02] MEDS ORDERED: FUROSEMIDE 20 MG/2 ML VIAL (J1940) IV (08:33)
[2018-07-02] MEDS: FUROSEMIDE 20 MG/2 ML VIAL (J1940) IV (09:07)
== END 2018-07-02 15:06 | disposition home or self-care (01) ==
LOC: M SDC 10:03 → M ICU 19:35
DX: N85.2 Hypertrophy of uterus (principal); N95.0 Postmenopausal bleeding; D25.9 Leiomyoma of uterus, unspecified; N72 Inflammatory disease of cervix uteri; R10.2 Pelvic and perineal pain; E11.9 Type 2 diabetes mellitus without complications; I10 Essential (primary) hypertension; E78.5 Hyperlipidemia, unspecified; G47.30 Sleep apnea, unspecified; Z79.84 Long term (current) use of oral hypoglycemic drugs; Z79.899 Other long term (current) drug therapy; G25.81 Restless legs syndrome
CPT/HCPCS: 58571

== ENCOUNTER → 2018-07-03 | Outpatient (CLI) | payer BC, OTHER | LOC: M PAIN 12:00 | DX: M51.16 Intervertebral disc disorders with radiculopathy, lumbar region (principal); G89.29 Other chronic pain; E11.9 Type 2 diabetes mellitus without complications; E55.9 Vitamin D deficiency, unspecified; E66.01 Morbid (severe) obesity due to excess calories; Z68.36 Body mass index [BMI] 36.0-36.9, adult; Z79.84 Long term (current) use of oral hypoglycemic drugs; Z79.899 Other long term (current) drug therapy; Z86.69 Personal history of other diseases of the nervous system and sense organs | CPT/HCPCS: G0463 ==

== ENCOUNTER → 2018-07-24 | Outpatient (CLI) | payer BC, OTHER ==
[~2018-07-24] MED LIST changes: +/CARB20TAB PO; +/METO25TAB PO; +ATOR1TAB21 PO; +ATOR40TA75 PO; +BP MED PO; +BUSP1TAB PO; +CARI1TAB7 PO; +CYCL10TA3 PO; +CYMB1CAP5 PO; +DEPA500T2 PO; +DICL50TAB PO; +DILA4TAB PO; +DRIS50003 PO; +GABA300C2 PO; +GABA600T4 PO; -GLYCOPYRROLATE INJ 0.2 MG/ML 2 ML VIAL As Ordered; +HYDROCODONE-ACETAMIN PO; -HYDROmorphone HCL 2 MG/ML 1ML VIAL (J1170) As Ordered; +IBUP-1114 PO; +IBUP1TAB7 PO; +IBUP80TA PO; +IBUPPOW25 PO; -KETOROLAC 60 MG/2 ML VIAL (J1885) As Ordered; -LIDOCAINE 1% MDV 20ML VIAL SQ; -LIDOCAINE 2% INJ 100 MG/5 ML SDV (FOR ANES.) As Ordered; +LISI-538 PO; +LISI10TA4 PO; +LISI5TAB PO; +LYRI75CA PO; +MECL-68 PO; +METF-839 PO; +METF10004 PO; +METF500T4 PO; +METO50TA2 PO; -MIDAZOLAM INJ 2 MG/2 ML VIAL (J2250) As Ordered; +NAPR1TAB41 PO; -NEOSTIGMINE 10 MG/10 ML VIAL (J2710) As Ordered; -ONDANSETRON 4MG/2ML VIAL (J2405) As Ordered; +OXYC1TAB23 PO; +PERC5TAB PO; +PERCOCET PO; +PRAV40TA2 PO; +PRED5PAK PO; -PROPOFOL 200 MG/20 ML VIAL As Ordered; -ROCURONIUM BROMIDE 50 MG/5 ML VIAL As Ordered; +ROPI2TAB PO; +SENN1TAB2 PO; +TIZA4CAP PO; +ULTR50TA PO; +VITA100066 PO; +ZEST10TA4 PO; +ZOFR4TAB16 PO; -dexameTHASONE 4 MG/ML 1ML VIAL (J1100) As Ordered; -fentaNYL 100 MCG/2 ML INJECTION (J3010) As Ordered; +vitamin b12
--- NOTE | 2018-08-09 23:46 | ECWPNPC ---
PATIENT NAME: MARQUIS DOUGHERTY : 1965 GENDER: FEMALE VISIT DATE: 07/24/2018 DISCHARGE DATE: 07/24/18 1141 VISIT LOCKED DATE TIME: PHYSICIAN: PEDRO JENKINS MD RESOURCE: PEDRO JENKINS MD REASON FOR APPOINTMENT 1. LOW BACK & LEFT LEG BOOKED PER DR Boyce HISTORY OF PRESENT ILLNESS HISTORY OF PRESENT ILLNESS: PAIN THE PATIENT DESCRIBES THE PAIN... 53 YEAR OLD FEMALE PATIENT WITH A HISTORY OF CHRONIC LOW BACK PAIN. THE PATIENT DESCRIBES THE PAIN ACHING, TENDER, SORE, AND HAVING IT ALL THE TIME WITH A PAIN SCORE OF 4-7/10 DEPENDING ON PHYSICAL ACTIVITY. THE PATIENT STATES THAT HER PAIN RADIATES FROM HER LOW BACK INTO HER LEFT HIP AND DOWN HER LEFT LEG. THE PATIENT WAS HERE FOR A LUMBAR EPIDURAL ON 06/23/2018 AND STATES THAT HER PAIN HAS STARTED TO RETURN. PATIENT DENIES UNEXPLAINABLE WEIGHT LOSS, FEVER, CHILLS, NEW CHANGES ON HER URINARY OR BOWEL CONTROL. FALL RISK SCREENING: SCREENING :NO FALLS IN THE PAST YEAR CURRENT MEDICATIONS TAKING BUSPIRONE HCL 7.5 MG TABLET 1 TABLET ORALLY TWICE A DAY TAKING DULOXETINE HCL 30 MG CAPSULE DELAYED RELEASE PARTICLES 1 CAPSULE ORALLY BID TAKING ROPINIROLE HCL 2 MG TABLET 1 TABLET 1 TO 3 HOURS BEFORE BEDTIME ORALLY ONCE A DAY TAKING METFORMIN HCL 1000 MG TABLET 1 TABLET WITH MEALS ORALLY TWICE A DAY TAKING ATORVASTATIN CALCIUM 40 MG TABLET 1 TABLET ORALLY ONCE A DAY TAKING VITAMIN D2 _ TABLET 25 MGS 1 TABLETS ORALLY WEEKLY TAKING DIVALPROEX SODIUM 500 MG TABLET DELAYED RELEASE 1 TAB ORALLY BID TAKING GABAPENTIN 600 MG TABLET 1 CAPSULE ORALLY THREE TIMES DAILY TAKING ALEVE 220 MG TABLET 1 TABLET WITH FOOD OR MILK NEEDED ORALLY EVERY 12 HRS TAKING LISINOPRIL 20 MG TABLET 1 TABLET ORALLY ONCE A DAY TAKING IBUPROFEN 800 MG TABLET 1 TABLET WITH FOOD OR MILK NEEDED ORALLY THREE TIMES A DAY TAKING SENNA PLUS 8.6-50 MG TABLET 1 TABLET IN THE EVENING NEEDED ORALLY ONCE A DAY TAKING SOMA 350 MG TABLET 1 TABLET NEEDED ORALLY FOR SPASMS AND PAIN EVERY 6 HOURS NEEDED MDD2 NOT-TAKING LISINOPRIL 10 10 MG TABLET 1 TAB ORAL ONCE DAILY NOT-TAKING DICLOFENAC SODIUM 50 MG TABLET DELAYED RELEASE 1 TABLET WITH FOOD OR MILK ORALLY BID NOT-TAKING OXYCODONE-ACETAMINOPHEN 5-325 MG TABLET 1 TABLET NEEDED ORALLY EVERY 6 HRS, NOTES: NOT LATELY MEDICATION LIST REVIEWED AND RECONCILED WITH THE PATIENT PAST MEDICAL HISTORY HX OF MAGANA'S PALSY VITAMIN D DEFICIENCY - RESOLVED, DR. MAGAÑA VITAMIN B12 DEFICIENCY - RESOLVED. IBS VERTIGO PAIN LOW BACK, LEFT HIP AND LEG DIABETES MELLITUS ALLERGIES N.K.D.A. SURGICAL HISTORY NECK SURGERY TUBAL LIGATION COLONOSCOPY, DR. RESTREPO. WNL. 02/2009 EMB BENIGN TOTAL HYSTERECTOMY 06/2018 FAMILY HISTORY FATHER: 77 YRS, HODGKINS LYMPHOMA, CABG AT 64-65 MOTHER: 77 YRS, BREAST CANCER @ 64, +LYMPH NODES. CHEMO AND RADIATION. DIABETES SIBLINGS: ALIVE DAUGHTER(S): ALIVE 20 YRS, NO KNOWN MEDICAL PROBLEMS PATERNAL UNCLE: , LUNG CANCER (TOBACCO USE) PATERNAL AUNT: , LUNG CANCER (TOBACCO) MATERNAL UNCLE: , DIABETES SISTER: DIABETES. NO BOWEL OR OVARIAN CANCER IN FAMILY. SOCIAL HISTORY GENERAL: TOBACCO USE ARE YOU A:NONSMOKER NEVER SMOKER BMI CARE GOAL FOLLOW-UP ABOVE NORMAL BMI FOLLOW-UPLIFESTYLE EDUCATION REGARDING DIET ALCOHOL SCREENING DID YOU HAVE A DRINK CONTAINING ALCOHOL IN THE PAST YEAR?NO POINTS0 INTERPRETATIONNEGATIVE RECREATIONAL DRUG USE DENIES. CAFFEINE 1-2/DAY. HIV / HEP-C SCREENING HIV TEST OFFERED TO PATIENT:YES DATE OFFERED:09/12/2017 TEST ACCEPTED:NO HEP-C TEST OFFERED TO PATIENT:YES DATE OFFERED:09/12/2017 REASON:PATIENT DECLINED TEST ACCEPTED:NO REASON:PATIENT DECLINED ORIENTAL ORTHODOX [id number] NONDENOMINATIONAL LANGUAGE LANGUAGES SPOKEN:ESTONIAN EDUCATION LEVEL OF EDUCATION:HIGH SCHOOL LEARNING BARRIERS / SPECIAL NEEDS CHANGE FROM LAST VISIT?NO BARRIERS TO LEARNING?NO HEARING IMPAIRED?NO VISION IMPAIRED?YES COGNITIVELY IMPAIRED?NO :CORRECTIVE LENSES READINESS TO LEARN?YES LEARNING PREFERENCES?NO LEARNING CAPABILITIES PRESENT?YES EMOTIONAL BARRIERS?NO SPECIAL DEVICES?NO VAT TENDER NEEDED?NO DOMESTIC VIOLENCE DO YOU FEEL SAFE IN YOUR ENVIRONMENT?YES 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 DIET: NEEDS IMPROVEMENT., GLUTEN FREE. EXERCISE: NO REGULAR EXERCISE. MARITAL STATUS: . OTHERS AT HOME: SPOUSE, CHILD. PAIN CLINIC PFS, CLERGY, PUBLIC HEALTH REFERRALS PFS REFERRAL NEEDED?NO CLERGY REFERRAL NEEDED?NO PUBLIC HEALTH REFERRAL NEEDED?NO WAS THE PROVIDER NOTIFIED OF ANY PERTINENT INFO?YES HAS THE PATIENT BEEN EDUCATED REGARDING HIS/HER PLAN OF CARE?YES HAS THE PATIENT BEEN EDUCATED REGARDING PAIN, THE RISK FOR PAIN, THE IMPORTANCE OF EFFECTIVE PAIN MANAGEMENT, AND THE PAIN ASSESSMENT PROCESS?YES ADVANCE DIRECTIVE ADVANCE DIRECTIVE DISCUSSED WITH PATIENT:YES PT DECLINES HCP INFORMATION AT THIS TIME. 12/11/17 1430 REVIEWED WITH PT. BV12/15/17 1120 REVIEWED WITH PT. 12/31/17 1200 REVIEWED WITH PT. AD02/03/18 1440 REVIEWED WITH PT. AD04/22/18 1447 REVIEWED WITH PT. BVREVIEWED WITH PT 07/03/18 1040 LASREVIEWED WITH PATIENT 07/24/18 1042 JS. HOSPITALIZATION/MAJOR DIAGNOSTIC PROCEDURE LOW BACK PAIN, LEFT HIP AND LEG PAIN 11/2017 NUMBNESS LEFT LEG AFTER PROCEDURE 12/15/17 POST-HYSTERECTOMY OVERNIGHT STAY 06/2018 REVIEW OF SYSTEMS REVIEWED BY: PROVIDER: PEDRO JENKINS MD . CONSTITUTIONAL: ANY CHANGE IN YOUR MEDICAL CONDITION? NO . CHILLS NO . FEVER NO . INFECTION: DO YOU HAVE NEW INFECTIONS? NO . DO YOU HAVE HISTORY OF MRSA? NO . MUSCULOSKELETAL: ANY NEW PATTERNS OF PAIN OR NUMBNESS? NO . GASTROENTEROLOGY: ANY NEW CHANGE IN BOWEL CONTROL? NO . GENITOURINARY: ANY NEW CHANGE IN BLADDER CONTROL? NO . IS THERE A CHANCE YOU COULD BE ? NO . HEMATOLOGY/LYMPH: DO YOU TAKE ANY BLOOD THINNERS? (FOR EXAMPLE- COUMADIN, PLAVIX, AGGRENOX, PLATEL, PRADAXA, OR XARELTO) NO . WHEN WAS YOUR LAST DOSE? DATE: TIME: . NEUROLOGY: HAVE YOU FALLEN IN THE PAST 6 MONTHS? NO . ANY NEW EXTREMITY NUMBNESS OR WEAKNESS? NO . CARDIOLOGY: DO YOU HAVE A PACEMAKER OR DEFIBRILLATOR? NO . RESPIRATORY: HAVE YOU BEEN SICK IN THE PAST WEEK? NO . FEVER NO . FLU LIKE SYMPTOMS? NO . COUGH NO . INTEGUMENTARY: DO YOU HAVE ANY RASHES OR OPEN SORES? NO . ALLERGIC/IMMUNO: ARE YOU ALLERGIC TO SHELLFISH OR IV DYE? NO . ANY NEW ALLERGIES? NO . PSYCHIATRIC: DO YOU HAVE THOUGHTS OF HURTING YOURSELF OR SOMEONE ELSE? NO . ARE YOU ABUSED, NEGLECTED, OR IN AN UNSAFE ENVIRONMENT? NO . ENDOCRINOLOGY: ARE YOU DIABETIC? YES . OTHER: DO YOU NEED ANY PRESCRIPTIONS? NO . IF YES, PLEASE LIST: ____ . ANY NEW PROBLEMS WITH YOUR MEDICATIONS? NO . WHEN DID YOU LAST EAT? ____ . WHEN DID YOU LAST DRINK? ____ . WHAT DID YOU LAST DRINK? ____ . NAME OF PERSON DRIVING YOU HOME? ____ . DO YOU HAVE ANY OTHER QUESTIONS OR CONCERNS YES, WOULD LIKE TO BE SCHEDULED FOR AN INJECTION . VITAL SIGNS WT 209 LBS, HT 64.25 IN, BMI 35.59 INDEX, BP 137/76 MM HG, HR 97 /MIN, RR 18 /MIN, TEMP 97.1 F, OXYGEN SAT % 97%, SAFE IN ENV? (Y/N) YES, NA INITIALS SC 10:37, REVIEWED BY: JS. EXAMINATION GENERAL EXAMINATION: PATIENT IS ALERT O X 3 AND COOPERATIVE. ANTALGIC GAIT. PATIENT IS LIMPING FROM HER LEFT LEG. LEFT LEG IS WEAKER AT EXTENSION AND FLEXION. MRI OF THE LUMBAR SPINE DONE ON 11/17/2017 SHOWS A BULGING DISC AT L4-L5. ASSESSMENTS INTERVERTEBRAL DISC DISORDER WITH RADICULOPATHY OF LUMBAR REGION - M51.16 (PRIMARY) TREATMENT INTERVERTEBRAL DISC DISORDER WITH RADICULOPATHY OF LUMBAR REGION CLINICAL NOTES: WE DISCUSSED SEVERAL ISSUES WITH MRS. DOUGHERTY'S PAIN MANAGEMENT CASE. I WOULD LIKE TO INCREASE THE PATIENT'S CYMBALTA FROM 30MG TABLETS TO 60MG TABLETS. THE PATIENT WILL CONSIDER USING A STRONG NSAID THAN IBUPROFEN IN THE FUTURE. WE WILL NOT BE MOVING FORWARD WITH ANY INTERVENTIONS AT THIS TIME BECAUSE WE ARE TRYING TO DO THE LEAST AMOUNT OF INJECTIONS WE CAN, SO WE WILL MANAGE THE PATIENT'S PAIN WITH MEDICATIONS FOR NOW. THE PATIENT WILL FOLLOW UP IN 2 WEEKS. INSTRUCTIONS WERE GIVEN, QUESTIONS WERE ANSWERED, PATIENT REPORTS UNDERSTANDING AND AGREES WITH THE PLAN. I, SIMONE CARNES, DOCUMENTED THE ABOVE INFORMATION ACTING A SCRIBE FOR DR. JENKINS. I HAVE REVIEWED THE ABOVE DOCUMENT, WRITTEN BY SIMONE HOFFMAN AND I VERIFY THAT IT IS ACCURATE. OTHERS REFILL DULOXETINE HCL CAPSULE DELAYED RELEASE PARTICLES, 60 MG, 1 CAPSULE, ORALLY, BID FOR PAIN, 30 DAY(S), 60, REFILLS 1 PROCEDURE CODES FA211 ESTABILISHED PATIENT [facility] FACILITY CHARGE G8427 CURRENT MEDS W/DOSAGES DOCUMENTED G8730 PAIN ASSESS POS TOOL F/U PLAN DOC DISPOSITION & COMMUNICATION FOLLOW UP 2 WEEKS ELECTRONICALLY SIGNED BY PEDRO JENKINS MD, ON 08/09/2018 AT 03:31 PM EST DISCLAIMER : THIS IS A VISIT SUMMARY EXTRACTED FROM THE [employer] CHART. IT IS NOT A COPY OF THE [employer] PROGRESS NOTE. MTDD
== END ==
LOC: M PAIN 10:15
PROVIDERS: ATTEND Anesthesiology
DX: M51.16 Intervertebral disc disorders with radiculopathy, lumbar region (principal); K58.9 Irritable bowel syndrome, unspecified; R42 Dizziness and giddiness; E11.9 Type 2 diabetes mellitus without complications; Z79.84 Long term (current) use of oral hypoglycemic drugs; Z79.899 Other long term (current) drug therapy

== ENCOUNTER → 2018-08-06 | Outpatient (CLI) | payer BC, OTHER ==
--- NOTE | 2018-08-22 23:23 | ECWPNPC ---
PATIENT NAME: MARQUIS DOUGHERTY : 1965 GENDER: FEMALE VISIT DATE: 08/06/2018 DISCHARGE DATE: 08/06/18 1340 VISIT LOCKED DATE TIME: PHYSICIAN: PEDRO JENKINS MD RESOURCE: PEDRO JENKINS MD REASON FOR APPOINTMENT 1. LOW BACK & LEG HISTORY OF PRESENT ILLNESS HISTORY OF PRESENT ILLNESS: PAIN THE PATIENT DESCRIBES THE PAIN... 53 YEAR OLD FEMALE PATIENT WITH A HISTORY OF CHRONIC LOW BACK PAIN. THE PATIENT DESCRIBES THE PAIN ACHING, BURNING, SHARP, STABBING, AND LASTING ALL DAY WITH A PAIN SCORE OF 6-10/10 DEPENDING ON PHYSICAL ACTIVITY. THE PATIENT STATES THAT THE PAIN STARTS IN HER LOW BACK AREA AND RADIATES INTO HER LEFT HIP AND DOWN HER LEFT LEG. THE PATIENT IS CURRENTLY USING CYMBALTA TO AID IN PAIN RELIEF AND SAYS THAT THE MEDICATION HELPS KEEP HER MOBILE AND FUNCTIONAL. PATIENT DENIES UNEXPLAINABLE WEIGHT LOSS, FEVER, CHILLS, NEW CHANGES ON HER URINARY OR BOWEL CONTROL. FALL RISK SCREENING: SCREENING :NO FALLS IN THE PAST YEAR CURRENT MEDICATIONS TAKING DULOXETINE HCL 60 MG CAPSULE DELAYED RELEASE PARTICLES 1 CAPSULE ORALLY BID FOR PAIN TAKING BUSPIRONE HCL 7.5 MG TABLET 1 TABLET ORALLY TWICE A DAY TAKING ROPINIROLE HCL 2 MG TABLET 1 TABLET 1 TO 3 HOURS BEFORE BEDTIME ORALLY ONCE A DAY TAKING METFORMIN HCL 1000 MG TABLET 1 TABLET WITH MEALS ORALLY TWICE A DAY TAKING ATORVASTATIN CALCIUM 40 MG TABLET 1 TABLET ORALLY ONCE A DAY TAKING VITAMIN D2 _ TABLET 25 MGS 1 TABLETS ORALLY WEEKLY TAKING DIVALPROEX SODIUM 500 MG TABLET DELAYED RELEASE 1 TAB ORALLY BID TAKING GABAPENTIN 600 MG TABLET 1 CAPSULE ORALLY THREE TIMES DAILY TAKING ALEVE 220 MG TABLET 1 TABLET WITH FOOD OR MILK NEEDED ORALLY EVERY 12 HRS TAKING LISINOPRIL 20 MG TABLET 1 TABLET ORALLY ONCE A DAY TAKING IBUPROFEN 800 MG TABLET 1 TABLET WITH FOOD OR MILK NEEDED ORALLY THREE TIMES A DAY TAKING SENNA PLUS 8.6-50 MG TABLET 1 TABLET IN THE EVENING NEEDED ORALLY ONCE A DAY TAKING SOMA 350 MG TABLET 1 TABLET NEEDED ORALLY FOR SPASMS AND PAIN EVERY 6 HOURS NEEDED MDD2 TAKING CYMBALTA 60 MG CAPSULE DELAYED RELEASE PARTICLES 1 CAPSULE ORALLY BID UNKNOWN LISINOPRIL 10 10 MG TABLET 1 TAB ORAL ONCE DAILY UNKNOWN DICLOFENAC SODIUM 50 MG TABLET DELAYED RELEASE 1 TABLET WITH FOOD OR MILK ORALLY BID UNKNOWN OXYCODONE-ACETAMINOPHEN 5-325 MG TABLET 1 TABLET NEEDED ORALLY EVERY 6 HRS, NOTES: NOT LATELY MEDICATION LIST REVIEWED AND RECONCILED WITH THE PATIENT PAST MEDICAL HISTORY HX OF MAGANA'S PALSY VITAMIN D DEFICIENCY - RESOLVED, DR. MAGAÑA VITAMIN B12 DEFICIENCY - RESOLVED. IBS VERTIGO PAIN LOW BACK, LEFT HIP AND LEG DIABETES MELLITUS ALLERGIES N.K.D.A. SURGICAL HISTORY NECK SURGERY TUBAL LIGATION COLONOSCOPY, DR. RESTREPO. WNL. 02/2009 EMB BENIGN TOTAL HYSTERECTOMY 06/2018 FAMILY HISTORY FATHER: 77 YRS, HODGKINS LYMPHOMA, CABG AT 64-65 MOTHER: 77 YRS, BREAST CANCER @ 64, +LYMPH NODES. CHEMO AND RADIATION. DIABETES SIBLINGS: ALIVE DAUGHTER(S): ALIVE 20 YRS, NO KNOWN MEDICAL PROBLEMS PATERNAL UNCLE: , LUNG CANCER (TOBACCO USE) PATERNAL AUNT: , LUNG CANCER (TOBACCO) MATERNAL UNCLE: , DIABETES SISTER: DIABETES. NO BOWEL OR OVARIAN CANCER IN FAMILY. SOCIAL HISTORY GENERAL: TOBACCO USE ARE YOU A:NONSMOKER NEVER SMOKER BMI CARE GOAL FOLLOW-UP ABOVE NORMAL BMI FOLLOW-UPLIFESTYLE EDUCATION REGARDING DIET ALCOHOL SCREENING DID YOU HAVE A DRINK CONTAINING ALCOHOL IN THE PAST YEAR?NO POINTS0 INTERPRETATIONNEGATIVE RECREATIONAL DRUG USE DENIES. CAFFEINE 1-2/DAY. HIV / HEP-C SCREENING HIV TEST OFFERED TO PATIENT:YES DATE OFFERED:09/12/2017 TEST ACCEPTED:NO HEP-C TEST OFFERED TO PATIENT:YES DATE OFFERED:09/12/2017 REASON:PATIENT DECLINED TEST ACCEPTED:NO REASON:PATIENT DECLINED HOLINESS [id number] LATTER DAY LANGUAGE LANGUAGES SPOKEN:LITHUANIAN EDUCATION LEVEL OF EDUCATION:HIGH SCHOOL LEARNING BARRIERS / SPECIAL NEEDS CHANGE FROM LAST VISIT?NO BARRIERS TO LEARNING?NO HEARING IMPAIRED?NO VISION IMPAIRED?YES COGNITIVELY IMPAIRED?NO :CORRECTIVE LENSES READINESS TO LEARN?YES LEARNING PREFERENCES?NO LEARNING CAPABILITIES PRESENT?YES EMOTIONAL BARRIERS?NO SPECIAL DEVICES?NO RETAIL SUPPORT ASSOCIATE NEEDED?NO DOMESTIC VIOLENCE DO YOU FEEL SAFE IN YOUR ENVIRONMENT?YES 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 DIET: NEEDS IMPROVEMENT., GLUTEN FREE. EXERCISE: NO REGULAR EXERCISE. MARITAL STATUS: . OTHERS AT HOME: SPOUSE, CHILD. PAIN CLINIC PFS, CLERGY, PUBLIC HEALTH REFERRALS PFS REFERRAL NEEDED?NO CLERGY REFERRAL NEEDED?NO PUBLIC HEALTH REFERRAL NEEDED?NO WAS THE PROVIDER NOTIFIED OF ANY PERTINENT INFO?YES HAS THE PATIENT BEEN EDUCATED REGARDING HIS/HER PLAN OF CARE?YES HAS THE PATIENT BEEN EDUCATED REGARDING PAIN, THE RISK FOR PAIN, THE IMPORTANCE OF EFFECTIVE PAIN MANAGEMENT, AND THE PAIN ASSESSMENT PROCESS?YES ADVANCE DIRECTIVE ADVANCE DIRECTIVE DISCUSSED WITH PATIENT:YES PT DECLINES HCP INFORMATION AT THIS TIME. 12/11/17 1430 REVIEWED WITH PT. BV12/15/17 1120 REVIEWED WITH PT. 12/31/17 1200 REVIEWED WITH PT. AD02/03/18 1440 REVIEWED WITH PT. AD04/22/18 1447 REVIEWED WITH PT. BVREVIEWED WITH PT 07/03/18 1040 LASREVIEWED WITH PATIENT 07/24/18 1042 JS. HOSPITALIZATION/MAJOR DIAGNOSTIC PROCEDURE LOW BACK PAIN, LEFT HIP AND LEG PAIN 11/2017 NUMBNESS LEFT LEG AFTER PROCEDURE 12/15/17 POST-HYSTERECTOMY OVERNIGHT STAY 06/2018 REVIEW OF SYSTEMS REVIEWED BY: PROVIDER: PEDRO JENKINS MD . CONSTITUTIONAL: ANY CHANGE IN YOUR MEDICAL CONDITION? NO . CHILLS NO . FEVER NO . INFECTION: DO YOU HAVE NEW INFECTIONS? NO . DO YOU HAVE HISTORY OF MRSA? NO . MUSCULOSKELETAL: ANY NEW PATTERNS OF PAIN OR NUMBNESS? NO . GASTROENTEROLOGY: ANY NEW CHANGE IN BOWEL CONTROL? NO . GENITOURINARY: ANY NEW CHANGE IN BLADDER CONTROL? NO . IS THERE A CHANCE YOU COULD BE ? NO . HEMATOLOGY/LYMPH: DO YOU TAKE ANY BLOOD THINNERS? (FOR EXAMPLE- COUMADIN, PLAVIX, AGGRENOX, PLATEL, PRADAXA, OR XARELTO) NO . WHEN WAS YOUR LAST DOSE? DATE: TIME: . NEUROLOGY: HAVE YOU FALLEN IN THE PAST 6 MONTHS? NO . ANY NEW EXTREMITY NUMBNESS OR WEAKNESS? NO . CARDIOLOGY: DO YOU HAVE A PACEMAKER OR DEFIBRILLATOR? NO . RESPIRATORY: HAVE YOU BEEN SICK IN THE PAST WEEK? NO . FEVER NO . FLU LIKE SYMPTOMS? NO . COUGH NO . INTEGUMENTARY: DO YOU HAVE ANY RASHES OR OPEN SORES? NO . ALLERGIC/IMMUNO: ARE YOU ALLERGIC TO SHELLFISH OR IV DYE? NO . ANY NEW ALLERGIES? NO . PSYCHIATRIC: DO YOU HAVE THOUGHTS OF HURTING YOURSELF OR SOMEONE ELSE? NO . ARE YOU ABUSED, NEGLECTED, OR IN AN UNSAFE ENVIRONMENT? NO . ENDOCRINOLOGY: ARE YOU DIABETIC? NO . OTHER: DO YOU NEED ANY PRESCRIPTIONS? NONE . IF YES, PLEASE LIST: ____ . ANY NEW PROBLEMS WITH YOUR MEDICATIONS? NO . WHEN DID YOU LAST EAT? ____ . WHEN DID YOU LAST DRINK? ____ . WHAT DID YOU LAST DRINK? ____ . NAME OF PERSON DRIVING YOU HOME? ____ . DO YOU HAVE ANY OTHER QUESTIONS OR CONCERNS NO . VITAL SIGNS WT 204 LBS, HT 64.25 IN, BMI 34.74 INDEX, BP 135/82 MM HG, HR 109 /MIN, RR 18 /MIN, TEMP 98.4 F, OXYGEN SAT % 94%, NA INITIALS AW 1252, REVIEWED BY: KG. EXAMINATION GENERAL EXAMINATION: PATIENT IS ALERT O X 3 AND COOPERATIVE. ASSESSMENTS INTERVERTEBRAL DISC DISORDER WITH RADICULOPATHY OF LUMBAR REGION - M51.16 (PRIMARY) TREATMENT INTERVERTEBRAL DISC DISORDER WITH RADICULOPATHY OF LUMBAR REGION CLINICAL NOTES: WE DISCUSSED SEVERAL ISSUES WITH MRS. DOUGHERTY'S PAIN MANAGEMENT CASE. THE PATIENT REPORTS THAT SHE IS DOING BETTER, SO SHE WILL CONTINUE USING CYMBALTA 60 MG TO CONTROL HER PAIN AT THIS TIME. IF THE PATIENT'S PAIN STARTS TO BECOME SEVERE, SHE MAY CALL TO BOOK A LUMBAR EPIDURAL STEROID INJECTION LONG IT IS BEFORE September DUE TO HER GOING ON VACATION. THE PATIENT WILL FOLLOW UP IN 2 MONTHS. INSTRUCTIONS WERE GIVEN, QUESTIONS WERE ANSWERED, PATIENT REPORTS UNDERSTANDING AND AGREES WITH THE PLAN. I, SIMONE CARNES, DOCUMENTED THE ABOVE INFORMATION ACTING A SCRIBE FOR DR. JENKINS. I HAVE REVIEWED THE ABOVE DOCUMENT, WRITTEN BY SIMONE HOFFMAN AND I VERIFY THAT IT IS ACCURATE. PROCEDURE CODES FA211 ESTABILISHED PATIENT [facility] FACILITY CHARGE G8427 CURRENT MEDS W/DOSAGES DOCUMENTED G8730 PAIN ASSESS POS TOOL F/U PLAN DOC DISPOSITION & COMMUNICATION FOLLOW UP 2 MONTHS ELECTRONICALLY SIGNED BY PEDRO JENKINS MD, MD ON 08/22/2018 AT 08:36 PM EST DISCLAIMER : THIS IS A VISIT SUMMARY EXTRACTED FROM THE [facility] CHART. IT IS NOT A COPY OF THE [facility] PROGRESS NOTE. SHAKILA
== END ==
LOC: M PAIN 12:45
PROVIDERS: ATTEND Anesthesiology
DX: M51.16 Intervertebral disc disorders with radiculopathy, lumbar region (principal); G89.29 Other chronic pain; E11.9 Type 2 diabetes mellitus without complications; E55.9 Vitamin D deficiency, unspecified; Z79.84 Long term (current) use of oral hypoglycemic drugs; Z79.899 Other long term (current) drug therapy; Z90.710 Acquired absence of both cervix and uterus; Z86.69 Personal history of other diseases of the nervous system and sense organs

== ENCOUNTER → 2018-08-13 | Outpatient (CLI) | payer BC, OTHER ==
--- NOTE | 2018-08-14 03:45 | REP ---
Clinical: Shoulder pain. Technique: Internal rotation, external rotation, and Y view of the right shoulder. Findings: Generalized age-related changes are appreciated. Findings include very subtle cortical irregularity at the acromioclavicular joint and minimal blunting along the ossified glenoid rim. Subacromial space is normal. No acute fracture or dislocation. No periarticular calcifications or loose bodies identified. Impression: Generalized age-related changes. Electronically Signed by Neville Aparicio MD 08/14/2018 03:37 A
== END ==
LOC: M WUC 18:18
PROVIDERS: ATTEND Physician Assistant
DX: M25.511 Pain in right shoulder (principal)

== ENCOUNTER → 2018-09-08 | Outpatient (CLI) | payer BC, OTHER | LOC: M PAIN 12:30 | PROVIDERS: ATTEND Anesthesiology | DX: Z53.29 Procedure and treatment not carried out because of patient's decision for other reasons (principal) ==

== ENCOUNTER 2018-09-29 08:23 | Inpatient (IN) | payer BC, OTHER ==
[~2018-09-29] VITALS: Ht 165.1 cm; Wt 97.8 kg
[2018-09-29] MEDS: DULoxetine 30 MG CAP (CYMBALTA) PO SCH ×2 (09:00→20:34)
[2018-09-29] MEDS: DIVALPROEX 500MG *ER* TAB PO SCH ×2 (09:00→20:34)
[2018-09-29] MEDS: SENOKOT S TAB PO SCH ×2 (09:00→20:34)
[2018-09-29] MEDS: busPIRone 5 MG TAB PO SCH ×2 (09:00→20:35)
[2018-09-29] MEDS ORDERED: METHOCARBAMOL 750 MG TAB PO ONE (09:45)
[2018-09-29] MEDS ORDERED: PERCOCET 5MG/325MG TAB PO ONE (09:45)
--- NOTE | 2018-09-29 10:27 | REP ---
CT cervical spine without contrast HISTORY: Neck and right arm pain COMPARISON: 10/23/1937 The patient is status post C 5-7 spinal fusion. A fixation plate and bone graft material are present. There is no acute fracture or subluxation. A disc bulge is present at the C4-5 level. Posterior osteophytes are present at the C5-6 and C6-7 levels. There is minimal to mild narrowing of the spinal canal. Uncinate process and/or facet hypertrophy are present at the the C3-4 through C6-7 levels. These findings produce minimal to mild narrowing of the neural foramina. The C4-5 and C7-T1 intervertebral discs are decreased in height consistent with disc degeneration. There is no subluxation. IMPRESSION: 1. The patient is status post C 5-7 spinal fusion. There is anatomic alignment. 2. There is cervical spondylosis at the C3-4 through C6-7 levels. The foraminal narrowing at the C4-5 through C6-7 levels is a new finding. Electronically Signed by Levi Jones MD 09/29/2018 10:19 A
[2018-09-29] MEDS ORDERED: MORPHINE 10 MG/ML 1ML VIAL (J2270) IM ONE (10:45)
[2018-09-29] MEDS ORDERED: DULO1CAP3 PO (12:59)
[2018-09-29] MEDS ORDERED: GLUCOSE 4 GM CHEW TABLET PO PRN (13:45)
[2018-09-29] MEDS ORDERED: DEXTROSE 50% 50 ML SYRINGE IV PRN (13:45)
[2018-09-29] MEDS ORDERED: GLUCAGON FOR INJ 1 MG VIAL (J1610) SC PRN (13:45)
[2018-09-29] MEDS ORDERED: MORPHINE 4 MG/ML 1ML VIAL/SYRINGE (J2270) IV PRN (13:45)
[2018-09-29] MEDS ORDERED: ONDANSETRON 4MG/2ML VIAL (J2405) IV PRN (13:45)
[2018-09-29] MEDS: PANTOPRAZOLE 40MG TAB (PROTONIX) PO SCH (14:11)
--- NOTE | 2018-09-29 14:56 | REP ---
Right shoulder series: Three views. History: Shoulder pain. Findings: Three views of the right shoulder demonstrate normal alignment of the glenohumeral and acromioclavicular joints. No fracture or subluxation is seen. There is a circular clothing artifact partially projected on the proximal humeral diaphysis on the two frontal views. Impression: No acute abnormality. No significant change from August 13, 2018 prior radiographs. Electronically Signed by Baldomero Reyna MD 09/29/2018 07:29 P
[2018-09-29 15:08] LABS: HEMATOCRIT 42.9 % (36.0-47.0); HEMOGLOBIN 13.7 g/dl (12.0-15.5); MEAN CORPUSCULAR HEMOGLOBIN 29.5 pg (27.0-33.0); MEAN CORPUSCULAR HGB CONC 31.9 g/dl (32.0-36.5); MEAN CORPUSCULAR VOLUME 92.5 fl (80.0-96.0); PLATELET COUNT, AUTOMATED 290 10^3/uL (150-450); RED BLOOD COUNT 4.64 10^6/uL (4.00-5.40); WHITE BLOOD COUNT 7.2 10^3/uL (4.0-10.0)
[2018-09-29 15:44] LABS: ALBUMIN 3.8 GM/DL (3.2-5.2); ALT/SGPT 73 U/L (12-78); BILIRUBIN,TOTAL 0.3 MG/DL (0.2-1.0); BLOOD UREA NITROGEN 11 MG/DL (7-18); C REACTIVE PROTEIN QUANTITATIV 1.05 MG/DL (0.00-0.30); CALCIUM LEVEL 9.3 MG/DL (8.5-10.1); CARBON DIOXIDE LEVEL 28 MEQ/L (21-32); CHLORIDE LEVEL 103 MEQ/L (98-107); CK-MB VALUE MASS < 1.0 NG/ML (<3.6); CPK CREATINE PHOSPHOKINASE 75 U/L (26-192); CREATININE FOR GFR 0.79 MG/DL (0.55-1.30); GLOMERULAR FILTRATION RATE > 60.0 (>51); GLUCOSE, FASTING 218 MG/DL (70-100); MAGNESIUM LEVEL 2.1 MG/DL (1.8-2.4); MB/CK RELATIVE INDEX 1.33 (< OR =4); POTASSIUM SERUM 4.1 MEQ/L (3.5-5.1); SODIUM LEVEL 138 MEQ/L (136-145); TROPONIN I < 0.02 NG/ML (< 0.10)
[2018-09-29 15:45] VITALS: BP 140/85
[2018-09-29 15:45] LABS: ERYTHROCYTE SEDIMENTATION RATE 27 mm/hr (0-30)
[2018-09-29] MEDS: GABAPENTIN 300 MG CAP PO SCH ×2 (16:35→20:34)
[2018-09-29] MEDS: PERCOCET 5MG/325MG TAB PO PRN ×2 (16:35→23:04)
[2018-09-29] MEDS: HumaLOG INSULIN (NovoLOG) PER UNIT SC SCH ×2 (17:30→20:35)
--- NOTE | 2018-09-29 17:35 | HPE ---
DATE OF ADMISSION: 09/29/2018 PRIMARY CARE PROVIDER: Dr. Alvin De Jesus ORTHOPEDIC SURGEON: Dr. Alex Syed PAIN MANAGEMENT: Dr. Browne covered by Krystle Pearson NP CHIEF COMPLAINT: Right-sided neck pain, right arm and right shoulder pain. HISTORY OF PRESENT ILLNESS: This is a 53-year-old female patient with underlying medical history of sciatica, diabetes mellitus type 2, obesity, hypertension, restless leg, chronic pain, anxiety, dyslipidemia, obstructive sleep apnea not on continuous positive airway pressure (CPAP), vertigo, vitamin D deficiency, history of Helicobacter (H) pylori. The patient about two or three months ago had an injection by Dr. Browne for sciatica. Since then, the patient has been having right-sided arm and shoulder pain and right-sided neck pain that is getting progressively worse. The patient reported sleepiness recently and worsening pain. Denies any chest pain, pressure or discomfort. Denies any trauma. The patient reported the pain is worsened with lifting or handling things. She did explain that it is preventing her from grabbing things. Denies any chest pain, vision change, hearing change. Denies any fevers or chills. In the emergency room, the patient was given multiple doses of pain medication without much improvement. Subsequently request was made to admit the patient to the hospital for further pain control. PAST MEDICAL HISTORY: 1. Diabetes mellitus, type 2. 2. Obesity. 3. Hypertension. 4. Restless leg syndrome. 5. Chronic pain. 6. Anxiety. 7. Dyslipidemia. 8. Obstructive sleep apnea. 9. Left-sided sciatica. 10. Vertigo. 11. Vitamin D deficiency. 12. History of Helicobacter (H) pylori. 13. Trigeminal neuralgia. PAST SURGICAL HISTORY: 1. Colonoscopy. 2. Neck fusion. 3. Tubal ligation. 4. Gamma knife for trigeminal neuralgia. FAMILY HISTORY: Father at age 70 with non-Hodgkin's lymphoma. Mother at age 70 from breast cancer. SOCIAL HISTORY: Drinks alcohol rarely. Denies smoking or illicit drug use. Still works. REVIEW OF SYSTEMS: Reported right-sided neck pain, right-sided shoulder pain, right-sided arm pain. All other review of systems are negative. HOME MEDICATIONS: - Lipitor 40 mg by mouth at bedtime - buspirone 7.5 mg by mouth twice a day - Depakote 500 mg by mouth twice a day - duloxetine 60 mg by mouth twice a day - gabapentin 600 mg by mouth three times a day - lisinopril 20 mg by mouth at bedtime - metformin 500 mg by mouth twice a day - Requip 2 mg by mouth at bedtime - vitamin D 50,000 units by mouth weekly VITAL SIGNS: Temperature 97.9, pulse 111, respiratory rate 20, blood pressure 140/85, pulse oximetry 92% on room air. GENERAL: Patient obese, alert, comfortable, in no acute distress. HEENT: Normocephalic, atraumatic. PULMONARY: Bilaterally clear. CARDIAC: Tachycardia, regular, S1, S2. ABDOMEN: Soft, nontender. EXTREMITIES: Right-sided shoulder pain to palpation. No swelling. Nontender with passive motion. Tenderness with resistance with flexion, abduction, lesser with extension. Vertebral spine nontender to palpation. No significant pain. Dorsalis pedis (DP), posterior tibial (PT) pulses intact bilateral lower extremities. EKG: Sinus tachycardia at 110. No ST segment changes. LABORATORY DATA: WBC 7.2, hemoglobin and hematocrit 13.7/42.9, platelets 209, ESR 27. Sodium 138, potassium 4.1, chloride 103, bicarbonate 28, BUN 11, creatinine 1.79. Cardiac enzymes negative times one. ASSESSMENT AND PLAN: This is a 53-year-old female patient with underlying medical history of diabetes mellitus, hypertension, restless leg syndrome, chronic pain, anxiety, dyslipidemia, obstructive sleep apnea not on continuous positive airway pressure (CPAP), obesity, left-sided sciatica, vertigo, vitamin D deficiency, history of Helicobacter (H) pylori who presented with progressively worsening right-sided neck pain, right-sided arm and shoulder pain. 1. Right-sided neck and right-sided arm and shoulder pain, possible cervical radiculopathy. CT scan of the neck has been appreciated. No motor deficit appreciated on physical examination. Pain was elicited with active motion and resistance. Pain management on consult. Pain medication as prescribed. EKG is appreciated. Orthopedic consulted. Further recommendation as per orthopedic and pain management. 2. Obesity, complicating care. 3. Diabetes mellitus. Insulin according to protocol. Holding metformin. Followup fingersticks. 4. Hypertension. Continue lisinopril. Monitor blood pressure. 5. Restless legs. Continue current medication. 6. Chronic pain. Continue current medication. Pain management on consult. 7. Anxiety and depression. Continue current medication. 8. Obstructive sleep apnea. Obstructive sleep apnea (MARGARITO) protocol. 9. History of left-sided sciatica, improved after pain injection. 10. Vertigo. Continue current medication. 11. Deep vein thrombosis (DVT) prophylaxis. Heparin subcutaneous. DISPOSITION: Pending orthopedic, pain management consultation, clinical improvement. Physical therapy (PT)/occupational therapy (OT) has been ordered.
[2018-09-29 18:42] LABS: CK-MB VALUE MASS < 1.0 NG/ML (<3.6); CPK CREATINE PHOSPHOKINASE 72 U/L (26-192); MB/CK RELATIVE INDEX 1.39 (< OR =4); TROPONIN I < 0.02 NG/ML (< 0.10)
[2018-09-29] MEDS: HEPARIN SOD (PORCINE) 5000 UNITS/ML VIAL SC SCH (20:33)
[2018-09-29] MEDS: rOPINIRole 1MG TAB PO SCH (20:34)
[2018-09-29] MEDS: ATORVASTATIN 20 MG TAB PO SCH (20:34)
[2018-09-29] MEDS: LISINOPRIL 20 MG TAB PO SCH (20:35)
[2018-09-29] MEDS ORDERED: SENOKOT S TAB PO SCH (21:00)
[2018-09-29 22:00] VITALS: BP 157/85
[2018-09-30] MEDS: PERCOCET 5MG/325MG TAB PO PRN ×5 (03:25→21:04)
[2018-09-30 06:00] VITALS: BP 150/80
[2018-09-30 06:41] LABS: HEMATOCRIT 40.4 % (36.0-47.0); HEMOGLOBIN 12.9 g/dl (12.0-15.5); MEAN CORPUSCULAR HEMOGLOBIN 30.1 pg (27.0-33.0); MEAN CORPUSCULAR HGB CONC 31.9 g/dl (32.0-36.5); MEAN CORPUSCULAR VOLUME 94.2 fl (80.0-96.0); PLATELET COUNT, AUTOMATED 271 10^3/uL (150-450); RED BLOOD COUNT 4.29 10^6/uL (4.00-5.40); WHITE BLOOD COUNT 5.6 10^3/uL (4.0-10.0)
[2018-09-30 07:07] LABS: BLOOD UREA NITROGEN 15 MG/DL (7-18); CALCIUM LEVEL 8.5 MG/DL (8.5-10.1); CARBON DIOXIDE LEVEL 32 MEQ/L (21-32); CHLORIDE LEVEL 98 MEQ/L (98-107); CREATININE FOR GFR 0.75 MG/DL (0.55-1.30); GLOMERULAR FILTRATION RATE > 60.0 (>51); GLUCOSE, FASTING 234 MG/DL (70-100); MAGNESIUM LEVEL 2.1 MG/DL (1.8-2.4); POTASSIUM SERUM 3.8 MEQ/L (3.5-5.1); SODIUM LEVEL 137 MEQ/L (136-145)
[2018-09-30] MEDS: HumaLOG INSULIN (NovoLOG) PER UNIT SC SCH ×4 (07:54→21:00)
[2018-09-30] MEDS: PANTOPRAZOLE 40MG TAB (PROTONIX) PO SCH (07:55)
[2018-09-30] MEDS: HEPARIN SOD (PORCINE) 5000 UNITS/ML VIAL SC SCH (07:55)
[2018-09-30] MEDS: DIVALPROEX 500MG *ER* TAB PO SCH ×2 (07:55→21:03)
[2018-09-30] MEDS: busPIRone 5 MG TAB PO SCH ×2 (07:55→21:01)
[2018-09-30] MEDS: GABAPENTIN 300 MG CAP PO SCH ×3 (07:56→21:04)
[2018-09-30] MEDS: SENOKOT S TAB PO SCH ×2 (07:56→21:03)
[2018-09-30] MEDS: DULoxetine 30 MG CAP (CYMBALTA) PO SCH ×2 (07:56→21:04)
[2018-09-30 14:00] VITALS: BP 113/75
--- NOTE | 2018-09-30 17:58 | CR ---
DATE OF CONSULTATION: 09/30/2018 CHIEF COMPLAINT: 1. Neck pain. 2. Right arm pain. HISTORY OF PRESENT ILLNESS Aubree is a 53-year-old female who was admitted a few days ago for uncontrolled neck and arm pain. States she began having neck and right arm pain approximately 2 months ago. Denies precipitating event. History of cervical surgery several years ago. Was doing well up until recently. Rating pain level as a 15 over 10 VAS. PAST MEDICAL HISTORY Dewitt palsy, Vitamin D deficiency. Vitamin B12 deficiency. In vitro fertilization (IVF). Vertigo. Chronic low back pain. Diabetes mellitus. PAST SURGICAL HISTORY Neck surgery. Tubal. Colonoscopy. Total hysterectomy. REVIEW OF SYSTEMS Negative except for as stated in the HPI - 11-point. PHYSICAL EXAMINATION Awake, alert, pleasant. No acute distress. Family at bedside. Cardiac: S1, S2, normal rate and rhythm. Respiratory: Lung sounds are clear. Respirations nonlabored. Musculoskeletal: Multiple tender spots and trigger points elicited in the right rhomboid, trapezius and shoulder region. Pain in this area is aggravated with range of joint motion of the arm. Neuro: Normal sensation to light touch bilateral upper extremities. Equal strong judge's clerk strength bilateral hands. DIAGNOSTICS CT of the neck 09/29/2018. ASSESSMENT 1. Myalgia. 2. Cervicalgia. PLAN Recommend trigger points. She will be brought over to the pain center tomorrow afternoon for trigger points right shoulder, neck, upper back area. Recommend n.p.o. after breakfast on 10/01. May have clear fluids up until noon. Hold heparin. Recommend use of Flexeril 5 mg every 8 hours three times a day.
[2018-09-30] MEDS ORDERED: PILL CRUSHER/CUTTER 1 EACH XX PRN (18:15)
--- NOTE | 2018-09-30 18:23 | IPNPDOC ---
Text Note Date of Service The patient was seen on 09/30/18. NOTE Continue to reported right neck and right shoulder pain, worsen with movement. Denied chest pain sob. reported lethargy. GENERAL: Patient obese, alert, comfortable, in no acute distress. HEENT: Normocephalic, atraumatic. PULMONARY: Bilaterally clear. CARDIAC: Tachycardia, regular, S1, S2. ABDOMEN: Soft, nontender. EXTREMITIES: Right-sided shoulder pain to palpation. No swelling. Nontender with passive motion. Tenderness with resistance with flexion, abduction, lesser with extension. Vertebral spine nontender to palpation. No significant pain. Dorsalis pedis (DP), posterior tibial (PT) pulses intact bilateral lower extremities. ASSESSMENT AND PLAN: This is a 53-year-old female patient with underlying medical history of diabetes mellitus, hypertension, restless leg syndrome, chronic pain, anxiety, dyslipidemia, obstructive sleep apnea not on continuous positive airway pressure (CPAP), obesity, left-sided sciatica, vertigo, vitamin D deficiency, history of Helicobacter (H) pylori who presented with progressively worsening right-sided neck pain, right-sided arm and shoulder pain. 1. Right-sided neck and right-sided arm and shoulder pain, possible cervical radiculopathy. CT scan of the neck has been appreciated. No motor deficit appreciated on physical examination. Pain management on consult. Pain medication as prescribed. Flexeril added. Orthopedic consulted. pain management, trigger point injection tomorrow. 2. Obesity, complicating care. 3. Diabetes mellitus. Insulin according to protocol. Holding metformin. Followup fingersticks. 4. Hypertension. Continue lisinopril. Monitor blood pressure. 5. Restless legs. Continue current medication. 6. Chronic pain. Continue current medication. Pain management on consult. 7. Anxiety and depression. Continue current medication. 8. Obstructive sleep apnea. Obstructive sleep apnea (MARGARITO) protocol. 9. History of left-sided sciatica, improved after pain injection. 10. Vertigo. Continue current medication. 11. Deep vein thrombosis (DVT) prophylaxis. Heparin subcutaneous. DISPOSITION: clinical improvement. Physical therapy (PT)/occupational therapy (OT) has been ordered. Trigger point injection tomorrow VS,Fishbone, I+O VS, Fishbone, I+O Laboratory Tests 09/30/18 06:08 Red Blood Count 4.29, Mean Corpuscular Volume 94.2, Mean Corpuscular Hemoglobin 30.1, Mean Corpuscular Hemoglobin Concent 31.9 L, Red Cell Distribution Width 12.8, Calcium Level 8.5 Vital Signs Date Time Temp Pulse Resp B/P (MAP) Pulse Ox O2 Delivery O2 Flow Rate FiO2 09/30/18 17:19 20 09/30/18 06:00 96.3 97 150/80 (103) 96 09/30/18 04:50 2.0 09/29/18 23:00 Nasal Cannula I&O- Last 24 Hours up to 6 AM 09/30/18 05:59 Intake Total 1500 ml Output Total 0 ml Balance 1500 ml ELMA DENSON MD Sep 30, 2018 18:23
--- NOTE | 2018-09-30 20:33 | ECGEPIP ---
Stationary ECG Study [facility] - ED Test Date: 2018-09-29 Pat Name: MARQUIS DOUGHERTY Department: Room: - Gender: F Sort Supervisor: : 1965 Requested By: ELMA DENSON Order Number: [id number] Reading MD: Giuliana Cheng Measurements Intervals [place] Rate: 110 P: 44 LA: 150 QRS: 21 QRSD: 87 T: -1 QT: 337 QTc: 456 Interpretive Statements SINUS TACHYCARDIA LOW QRS VOLTAGE IN PRECORDIAL LEADS ABNORMAL RHYTHM ECG DELAYED R PROGRESSION NSTTW ABNORMALITY INCREASED RATE 06/26/18 Electronically Signed On 09-30-2018 20:32:44 EST by Giuliana Cheng
[2018-09-30] MEDS: ATORVASTATIN 20 MG TAB PO SCH (20:59)
[2018-09-30] MEDS: TAMSULOSIN 0.4 MG CAP PO SCH (21:00)
[2018-09-30] MEDS: rOPINIRole 1MG TAB PO SCH (21:03)
[2018-09-30] MEDS: CYCLOBENZAPRINE 5MG TABLET PO SCH (21:03)
[2018-09-30] MEDS: LISINOPRIL 20 MG TAB PO SCH (21:04)
[2018-09-30 22:00] VITALS: BP 145/88
[2018-10-01 06:00] VITALS: BP 141/70
[2018-10-01 06:37] LABS: HEMATOCRIT 37.9 % (36.0-47.0); HEMOGLOBIN 12.6 g/dl (12.0-15.5); MEAN CORPUSCULAR HEMOGLOBIN 30.1 pg (27.0-33.0); MEAN CORPUSCULAR HGB CONC 33.2 g/dl (32.0-36.5); MEAN CORPUSCULAR VOLUME 90.5 fl (80.0-96.0); PLATELET COUNT, AUTOMATED 241 10^3/uL (150-450); RED BLOOD COUNT 4.19 10^6/uL (4.00-5.40); WHITE BLOOD COUNT 5.7 10^3/uL (4.0-10.0)
[2018-10-01] MEDS: CYCLOBENZAPRINE 5MG TABLET PO SCH ×3 (06:37→21:16)
[2018-10-01] MEDS: PERCOCET 5MG/325MG TAB PO PRN (06:39)
[2018-10-01 07:15] LABS: BLOOD UREA NITROGEN 15 MG/DL (7-18); CALCIUM LEVEL 8.4 MG/DL (8.5-10.1); CARBON DIOXIDE LEVEL 26 MEQ/L (21-32); CHLORIDE LEVEL 99 MEQ/L (98-107); CREATININE FOR GFR 0.75 MG/DL (0.55-1.30); GLOMERULAR FILTRATION RATE > 60.0 (>51); GLUCOSE, FASTING 247 MG/DL (70-100); POTASSIUM SERUM 4.2 MEQ/L (3.5-5.1); SODIUM LEVEL 137 MEQ/L (136-145)
--- NOTE | 2018-10-01 08:10 | CR ---
DATE OF ADMISSION: 09/29/2018 PRIMARY CARE PHYSICIAN: Unknown. ORTHOPEDIC PROVIDER: Dr. Alex Syed CHIEF COMPLAINT: Right shoulder and neck pain. HISTORY OF PRESENT ILLNESS: This is a pleasant 53-year-old female patient who has a history of cervical fusion and a lumbar spine pain. She has received what sounds like an epidural injections previously. She states that she was seen in our office a few months ago for right shoulder pain. She states over the past few days she has been noticing increased pain in the right neck and right shoulder. This radiates down the lateral aspect of forearm. She does report that she is a diabetic and has some chronic paresthesias in the hand that are unchanged in nature. She denies any weakness. Denies any injury. She comes into the emergency department today for her symptoms of pain. ALLERGIES: No known drug allergies. PAST MEDICAL HISTORY: Type 2 diabetes, chronic pain, hyperlipidemia, high blood pressure, sleep apnea, restless leg, vertigo. SURGICAL HISTORY: Surgery for facial pain, tubal ligation and cervical fusion. FAMILY HISTORY: Noncontributory. SOCIAL HISTORY: The patient is . She has never smoked and rarely consumes alcohol. PHYSICAL EXAMINATION: On physical exam she is a well developed, well nourished adult female in no apparent distress. She is ambulatory into the emergency room with a non antalgic gait. She has nonlabored breathing. She is alert and oriented times three. Examination of the cervical spine shows full range of motion. She has negative Spurling's test. Examination of the right shoulder does reveal full range of motion. She has some discomfort upon adduction of the shoulder from an overhead position. She has 05/05 strength. She is tender to palpation over the upper trapezius and into the region of the deltoid. She has full active range of motion of the elbow, wrist and hand with 5/5 strength of the interosseous muscles, brisk capillary refill. Neurovascular status is intact in this upper extremity. IMAGING STUDIES: Cervical spine CT obtained in the emergency department reveals a C5-C7 spinal fusion with well located hardware. No fluid collections. There is some increased foraminal narrowing at C4-5 and C6-7. Previous x-rays of the right shoulder revealed age related degenerative changes. No acute fracture, dislocation or other osseous abnormality. ASSESSMENT/PLAN: At this point the patient is being admitted for pain control. She does not need to be admitted for any orthopedic reason, we would be happy to see her in the office for further workup of her symptoms. She is a known patient of Dr. Alex Syed. She is currently on muscle relaxants given to her in the ER as well as anti-inflammatories. She should continue these until she is seen in our office. She understands and agrees with plan. We did discuss red flag symptoms and she will report back to the emergency room once discharge if these develop. Otherwise she will would contact our office upon discharge.
[2018-10-01] MEDS: busPIRone 5 MG TAB PO SCH ×2 (09:29→21:14)
[2018-10-01] MEDS: DIVALPROEX 500MG *ER* TAB PO SCH ×2 (09:31→21:15)
[2018-10-01] MEDS: GABAPENTIN 300 MG CAP PO SCH ×2 (09:31→21:14)
[2018-10-01] MEDS: DULoxetine 30 MG CAP (CYMBALTA) PO SCH ×2 (09:32→21:14)
[2018-10-01] MEDS: PANTOPRAZOLE 40MG TAB (PROTONIX) PO SCH (09:32)
[2018-10-01] MEDS: SENOKOT S TAB PO SCH ×2 (09:32→21:15)
[2018-10-01] MEDS: HumaLOG INSULIN (NovoLOG) PER UNIT SC SCH ×4 (09:33→21:50)
[2018-10-01 14:00] VITALS: BP 128/67
--- NOTE | 2018-10-01 14:49 | IPNPDOC ---
Text Note Date of Service The patient was seen on 10/01/18. NOTE Continue to reported right neck and right shoulder pain, worsen with movement. Denied chest pain sob. reported lethargy. GENERAL: Patient obese, alert, comfortable, in no acute distress. HEENT: Normocephalic, atraumatic. PULMONARY: Bilaterally clear. CARDIAC: Tachycardia, regular, S1, S2. ABDOMEN: Soft, nontender. EXTREMITIES: Right-sided shoulder pain to palpation. No swelling. Nontender with passive motion. Tenderness with resistance with flexion, abduction, lesser with extension. Vertebral spine nontender to palpation. No significant pain. Dorsalis pedis (DP), posterior tibial (PT) pulses intact bilateral lower extremities. ASSESSMENT AND PLAN: This is a 53-year-old female patient with underlying medical history of diabetes mellitus, hypertension, restless leg syndrome, chronic pain, anxiety, dyslipidemia, obstructive sleep apnea not on continuous positive airway pressure (CPAP), obesity, left-sided sciatica, vertigo, vitamin D deficiency, history of Helicobacter (H) pylori who presented with progressively worsening right-sided neck pain, right-sided arm and shoulder pain. 1. Right-sided neck and right-sided arm and shoulder pain, possible cervical radiculopathy. CT scan of the neck has been appreciated. No motor deficit appreciated on physical examination. Pain management on consult. Pain medication as prescribed. Flexeril added. Orthopedic consulted. pain management, trigger point injection today 2. Obesity, complicating care. 3. Diabetes mellitus. Insulin according to protocol. Holding metformin. Followup fingersticks. 4. Hypertension. Continue lisinopril. Monitor blood pressure. 5. Restless legs. Continue current medication. 6. Chronic pain. Continue current medication. Pain management on consult. 7. Anxiety and depression. Continue current medication. 8. Obstructive sleep apnea. Obstructive sleep apnea (MARGARITO) protocol. 9. History of left-sided sciatica, improved after pain injection during last admission 10. Vertigo. Continue current medication. 11. Deep vein thrombosis (DVT) prophylaxis. Heparin subcutaneous. DISPOSITION: clinical improvement. Physical therapy (PT)/occupational therapy (OT) has been ordered. Trigger point injection today VS,Fishbone, I+O VS, Fishbone, I+O Laboratory Tests 10/01/18 06:13 Red Blood Count 4.19, Mean Corpuscular Volume 90.5, Mean Corpuscular Hemoglobin 30.1, Mean Corpuscular Hemoglobin Concent 33.2, Red Cell Distribution Width 12.6, Calcium Level 8.4 L Vital Signs Date Time Temp Pulse Resp B/P (MAP) Pulse Ox O2 Delivery O2 Flow Rate FiO2 10/01/18 14:00 98.2 115 20 128/67 (87) 93 10/01/18 08:00 Nasal Cannula 2.0 I&O- Last 24 Hours up to 6 AM 10/01/18 06:00 Intake Total 2070 ml Output Total 2800 ml Balance -730 ml ELMA DENSON MD Oct 01, 2018 14:49
[2018-10-01] MEDS: ATORVASTATIN 20 MG TAB PO SCH (21:14)
[2018-10-01] MEDS: rOPINIRole 1MG TAB PO SCH (21:15)
[2018-10-01] MEDS: TAMSULOSIN 0.4 MG CAP PO SCH (21:15)
[2018-10-01 21:16] VITALS: BP 129/71
[2018-10-01] MEDS: LISINOPRIL 20 MG TAB PO SCH (21:16)
[2018-10-01 22:00] VITALS: BP 129/71
[2018-10-02] MEDS: PERCOCET 5MG/325MG TAB PO PRN (02:30)
[2018-10-02 06:00] VITALS: BP 128/72
[2018-10-02 06:05] LABS: HEMATOCRIT 36.3 % (36.0-47.0); HEMOGLOBIN 12.1 g/dl (12.0-15.5); MEAN CORPUSCULAR HEMOGLOBIN 29.8 pg (27.0-33.0); MEAN CORPUSCULAR HGB CONC 33.3 g/dl (32.0-36.5); MEAN CORPUSCULAR VOLUME 89.4 fl (80.0-96.0); PLATELET COUNT, AUTOMATED 247 10^3/uL (150-450); RED BLOOD COUNT 4.06 10^6/uL (4.00-5.40); WHITE BLOOD COUNT 5.5 10^3/uL (4.0-10.0)
[2018-10-02 06:23] LABS: BLOOD UREA NITROGEN 11 MG/DL (7-18); CARBON DIOXIDE LEVEL 32 MEQ/L (21-32); CHLORIDE LEVEL 99 MEQ/L (98-107); CREATININE FOR GFR 0.75 MG/DL (0.55-1.30); GLOMERULAR FILTRATION RATE > 60.0 (>51); GLUCOSE, FASTING 222 MG/DL (70-100); MAGNESIUM LEVEL 2.3 MG/DL (1.8-2.4); POTASSIUM SERUM 4.3 MEQ/L (3.5-5.1); SODIUM LEVEL 136 MEQ/L (136-145)
[2018-10-02] MEDS: CYCLOBENZAPRINE 5MG TABLET PO SCH (06:41)
[2018-10-02] MEDS: HumaLOG INSULIN (NovoLOG) PER UNIT SC SCH (08:00)
[2018-10-02 08:10] VITALS: BP 130/72
[2018-10-02] MEDS ORDERED: CYCL5TAB PO (08:39)
[2018-10-02] MEDS ORDERED: GABA-843 PO (08:39)
[2018-10-02] MEDS ORDERED: FLOM0.4C39 PO (08:39)
[2018-10-02] MEDS: DULoxetine 30 MG CAP (CYMBALTA) PO SCH (09:22)
[2018-10-02] MEDS: SENOKOT S TAB PO SCH (09:22)
[2018-10-02] MEDS: DIVALPROEX 500MG *ER* TAB PO SCH (09:23)
[2018-10-02] MEDS: GABAPENTIN 300 MG CAP PO SCH (09:23)
[2018-10-02] MEDS: busPIRone 5 MG TAB PO SCH (09:23)
[2018-10-02] MEDS: PANTOPRAZOLE 40MG TAB (PROTONIX) PO SCH (09:23)
[2018-10-02] MEDS: HEPARIN SOD (PORCINE) 5000 UNITS/ML VIAL SC SCH (09:24)
--- NOTE | 2018-10-02 19:13 | DSES ---
DATE OF ADMISSION: 09/29/2018 DATE OF DISCHARGE: 10/02/2018 FINAL DIAGNOSES: Right-sided neck, right-sided arm and right-sided shoulder pain. Possible cervical radiculopathy. Intractable pain. Diabetes mellitus. Hypertension. Restless leg syndrome. Chronic pain. Anxiety and depression. Obstructive sleep apnea. History of left-sided sciatica. Vertigo. HISTORY OF PRESENT ILLNESS: This is a 53-year-old female patient with underlying medical history of sciatica, diabetes mellitus type 2, obesity, hypertension, restless legs, chronic pain, anxiety, dyslipidemia, obstructive sleep apnea, not on CPAP, vertigo, vitamin D deficiency, history of Helicobacter (h.) pylori. Patient recently had injection by Dr. Browne for sciatica about 2 or 3 months ago with marked improvement. Patient has been having right-sided arm, right-sided shoulder and right-sided neck pain that is getting progressively worse to the extent that the patient cannot lift objects with her right arm. Patient reported sleepiness, worse in recent days. Denies any chest pain, pressure or discomfort. Denies any trauma. Denies any fever or chills. In the emergency room, the patient was given pain medication. CT scan was done showing worsening cervical spondylosis and foraminal narrowing and foramina narrowing. Hospitalist was called to admit the patient for better pain control and further management. HOSPITAL COURSE: Patient admitted to the hospital. Pain management was consulted. Orthopedics were consulted. Pain medication was prescribed as per orthopedics. No surgical indication at this time. Pain management has taken the patient for trigger point injections. Patient's pain medication was adjusted, Flexeril was added. Obstructive sleep apnea (MARGARITO) protocol was observed. Patient currently reported improved pain. Denies any chest pain, pressure or discomfort. Ready to be discharged for further care and workup as outpatient. Temperature 96.4, pulse 98, respirations 18, blood pressure 130/72, pulse ox 94% on room air. LABORATORY: WBC 5.5, hemoglobin and hematocrit 12.1/36.3, platelets 247. Chemistry: Sodium 136, potassium 4.3, chloride 99, bicarbonate 32. BUN 11, creatinine 0.75. GENERAL: Patient alert, comfortable. In no acute distress. HEENT: Normocephalic, atraumatic. PULMONARY: Bilateral clear. CARDIAC: Regular. S1, S2. ABDOMEN: Soft and nontender. EXTREMITIES: Right shoulder tender to palpation. No significant swelling. No warmth. Nontender with passive range of motion. Minimal tenderness with flexion and abduction, lesser with extension. No vertebral spine tenderness to palpation. Dorsalis pedis/posterior tibial (DP/PT) pulses intact bilateral lower extremities. DISCHARGE MEDICATIONS: - Cyclobenzaprine 5 mg by mouth every 8 hours - gabapentin reduced to 300 mg by mouth three times a day - Flomax 0.4 mg by mouth at bedtime - Lipitor 40 mg by mouth at bedtime - buspirone 7.5 mg by mouth twice a day - Depakote 500 mg by mouth twice a day - duloxetine 60 mg by mouth twice a day - lisinopril 20 mg by mouth at bedtime - metformin 500 mg by mouth twice a day - Requip 2 mg by mouth at bedtime - vitamin D 50,000 units by mouth daily DISCHARGE INSTRUCTIONS: Please see primary care provider in 7 days. Please see pain management in 10 to 14 days. Please see orthopedics in 10 to 14 days. Please see power system electrical engineer for sleep study. Return if symptoms worsen.
== END 2018-10-02 11:40 | disposition home health service (06) | DRG 48 ==
LOC: M ED 08:23 → M ED INP 13:34 → M MS5PR 15:35
PROVIDERS: ADMIT Hospitalist; ATTEND Hospitalist
PROC: 3E0233Z Introduction of Anti-inflammatory into Muscle, Percutaneous Approach (ICD-10-PCS; principal; 2018-10-01)
DX: M54.12 Radiculopathy, cervical region (principal); I10 Essential (primary) hypertension; E66.9 Obesity, unspecified; E11.9 Type 2 diabetes mellitus without complications; G25.81 Restless legs syndrome; F41.9 Anxiety disorder, unspecified; E78.5 Hyperlipidemia, unspecified; G89.29 Other chronic pain; M79.18 Myalgia, other site; G47.33 Obstructive sleep apnea (adult) (pediatric); F32.9 Major depressive disorder, single episode, unspecified; R42 Dizziness and giddiness; M54.32 Sciatica, left side; Z98.1 Arthrodesis status; Z79.84 Long term (current) use of oral hypoglycemic drugs; Z68.35 Body mass index [BMI] 35.0-35.9, adult; Z79.899 Other long term (current) drug therapy

== ENCOUNTER → 2018-10-01 | Outpatient (CLI) | payer BC, OTHER ==
[~2018-10-01] MED LIST changes: +BUPIVACAINE HCL 0.25% 10 ML VIAL As Ordered ONE; +BUPIVACAINE HCL 0.25% 30 ML VIAL As Ordered ONE; +CYCL5TAB PO; +DULO1CAP3 PO; +FLOM0.4C39 PO; +GABA-843 PO; +TRIAMCINOLONE ACETONIDE SUSP 40 MG/ML VIAL (J3301) As Ordered ONE
--- NOTE | 2018-10-10 23:13 | ECWPNPC ---
PATIENT NAME: MARQUIS DOUGHERTY : 1965 GENDER: FEMALE VISIT DATE: 10/01/2018 DISCHARGE DATE: 10/01/18 0000 VISIT LOCKED DATE TIME: PHYSICIAN: PEDRO JENKINS MD RESOURCE: PEDRO JENKINS MD REASON FOR APPOINTMENT 1. IN PATIENT TPI HISTORY OF PRESENT ILLNESS HISTORY OF PRESENT ILLNESS: PAIN THE PATIENT DESCRIBES THE PAIN... FALL RISK SCREENING: SCREENING : NO FALLS IN THE PAST YEAR. CURRENT MEDICATIONS TAKING BUSPIRONE HCL 7.5 MG TABLET 1 TABLET ORALLY TWICE A DAY, NOTES: 10/01/18928 TAKING ROPINIROLE HCL 2 MG TABLET 1 TABLET 1 TO 3 HOURS BEFORE BEDTIME ORALLY ONCE A DAY, NOTES: 09/30/182102 TAKING METFORMIN HCL 1000 MG TABLET 1 TABLET WITH MEALS ORALLY TWICE A DAY, NOTES: NONE RECENT TAKING ATORVASTATIN CALCIUM 40 MG TABLET 1 TABLET ORALLY ONCE A DAY, NOTES: 09/30/182058 TAKING VITAMIN D2 _ TABLET 25 MGS 1 TABLETS ORALLY WEEKLY, NOTES: NONE RECENT TAKING DIVALPROEX SODIUM 500 MG TABLET DELAYED RELEASE 1 TAB ORALLY BID, NOTES: 10/01/18930 TAKING GABAPENTIN 600 MG TABLET 1 CAPSULE ORALLY THREE TIMES DAILY, NOTES: 10/01/18930 TAKING ALEVE 220 MG TABLET 1 TABLET WITH FOOD OR MILK NEEDED ORALLY EVERY 12 HRS, NOTES: NONE RECENT TAKING LISINOPRIL 20 MG TABLET 1 TABLET ORALLY ONCE A DAY, NOTES: 09/30/182103 TAKING IBUPROFEN 800 MG TABLET 1 TABLET WITH FOOD OR MILK NEEDED ORALLY THREE TIMES A DAY, NOTES: NONE RECENT TAKING SENNA PLUS 8.6-50 MG TABLET 1 TABLET IN THE EVENING NEEDED ORALLY ONCE A DAY, NOTES: 10/01/18931 TAKING SOMA 350 MG TABLET 1 TABLET NEEDED ORALLY FOR SPASMS AND PAIN EVERY 6 HOURS NEEDED MDD2, NOTES: NONE RECENT TAKING DULOXETINE HCL 60 MG CAPSULE DELAYED RELEASE PARTICLES 1 CAPSULE ORALLY BID FOR PAIN, NOTES: 10/01/18931 TAKING PANTOPRAZOLE SODIUM 40 MG TABLET DELAYED RELEASE 1 TABLET ORALLY ONCE A DAY, NOTES: 10/01/18931 TAKING TAMSULOSIN HCL 0.4 MG CAPSULE 1 CAPSULE ORALLY BEFORE BEDTIME, NOTES: 09/30/182099 TAKING CYCLOBENZAPRINE HCL 5 MG TABLET 1 TABLET ORALLY EVERY 8 HOURS, NOTES: 2/28/19 0637 TAKING HEPARIN SODIUM (PORCINE) 5000 UNIT/ML SOLUTION 1 ML INJECTION EVERY 12 HRS, NOTES: 09/30/18 0755 TAKING HUMALOG 100 UNIT/ML SOLUTION PER SLIDING SCALE SUBCUTANEOUS ACHS, NOTES: 10/01/18 0933 TAKING OXYCODONE-ACETAMINOPHEN 5-325 MG TABLET 1 TABLET NEEDED ORALLY EVERY 6 HRS, NOTES: 10/01/18 0639 NOT-TAKING CYMBALTA 60 MG CAPSULE DELAYED RELEASE PARTICLES 1 CAPSULE ORALLY BID, NOTES: DUPLICATE NOT-TAKING LISINOPRIL 10 10 MG TABLET 1 TAB ORAL ONCE DAILY NOT-TAKING DICLOFENAC SODIUM 50 MG TABLET DELAYED RELEASE 1 TABLET WITH FOOD OR MILK ORALLY BID MEDICATION LIST REVIEWED AND RECONCILED WITH THE PATIENT PAST MEDICAL HISTORY HX OF MAGANA'S PALSY VITAMIN D DEFICIENCY - RESOLVED, DR. MAGAÑA VITAMIN B12 DEFICIENCY - RESOLVED. IBS VERTIGO PAIN LOW BACK, LEFT HIP AND LEG DIABETES MELLITUS ALLERGIES N.K.D.A. SURGICAL HISTORY NECK SURGERY TUBAL LIGATION COLONOSCOPY, DR. RESTREPO. WNL. 02/2009 EMB BENIGN TOTAL HYSTERECTOMY 06/2018 FAMILY HISTORY FATHER: 77 YRS, HODGKINS LYMPHOMA, CABG AT 64-65 MOTHER: 77 YRS, BREAST CANCER @ 64, +LYMPH NODES. CHEMO AND RADIATION. DIABETES SIBLINGS: ALIVE DAUGHTER(S): ALIVE 20 YRS, NO KNOWN MEDICAL PROBLEMS PATERNAL UNCLE: , LUNG CANCER (TOBACCO USE) PATERNAL AUNT: , LUNG CANCER (TOBACCO) MATERNAL UNCLE: , DIABETES SISTER: DIABETES. NO BOWEL OR OVARIAN CANCER IN FAMILY. SOCIAL HISTORY GENERAL: TOBACCO USE ARE YOU A:NONSMOKER NEVER SMOKER BMI CARE GOAL FOLLOW-UP ABOVE NORMAL BMI FOLLOW-UPLIFESTYLE EDUCATION REGARDING DIET ALCOHOL SCREENING DID YOU HAVE A DRINK CONTAINING ALCOHOL IN THE PAST YEAR?NO POINTS0 INTERPRETATIONNEGATIVE RECREATIONAL DRUG USE DENIES. CAFFEINE 1-2/DAY. HIV / HEP-C SCREENING HIV TEST OFFERED TO PATIENT:YES DATE OFFERED:09/12/2017 TEST ACCEPTED:NO HEP-C TEST OFFERED TO PATIENT:YES DATE OFFERED:09/12/2017 REASON:PATIENT DECLINED TEST ACCEPTED:NO REASON:PATIENT DECLINED SCIENTOLOGY [id number] HOAHAOISM LANGUAGE LANGUAGES SPOKEN:TURKMEN EDUCATION LEVEL OF EDUCATION:HIGH SCHOOL LEARNING BARRIERS / SPECIAL NEEDS CHANGE FROM LAST VISIT?NO BARRIERS TO LEARNING?NO HEARING IMPAIRED?NO VISION IMPAIRED?YES COGNITIVELY IMPAIRED?NO :CORRECTIVE LENSES READINESS TO LEARN?YES LEARNING PREFERENCES?NO LEARNING CAPABILITIES PRESENT?YES EMOTIONAL BARRIERS?NO SPECIAL DEVICES?NO SENIOR BIOSTATISTICIAN NEEDED?NO DOMESTIC VIOLENCE DO YOU FEEL SAFE IN YOUR ENVIRONMENT?YES 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. DIET: NEEDS IMPROVEMENT., GLUTEN FREE. EXERCISE: NO REGULAR EXERCISE. MARITAL STATUS: . OTHERS AT HOME: SPOUSE, CHILD. PAIN CLINIC PFS, CLERGY, PUBLIC HEALTH REFERRALS PFS REFERRAL NEEDED?NO CLERGY REFERRAL NEEDED?NO PUBLIC HEALTH REFERRAL NEEDED?NO WAS THE PROVIDER NOTIFIED OF ANY PERTINENT INFO?YES HAS THE PATIENT BEEN EDUCATED REGARDING HIS/HER PLAN OF CARE?YES HAS THE PATIENT BEEN EDUCATED REGARDING PAIN, THE RISK FOR PAIN, THE IMPORTANCE OF EFFECTIVE PAIN MANAGEMENT, AND THE PAIN ASSESSMENT PROCESS?YES ADVANCE DIRECTIVE ADVANCE DIRECTIVE DISCUSSED WITH PATIENT:YES PT DECLINES HCP INFORMATION AT THIS TIME. 12/11/17 1430 REVIEWED WITH PT. BV12/15/17 1120 REVIEWED WITH PT. 12/31/17 1200 REVIEWED WITH PT. AD02/03/18 1440 REVIEWED WITH PT. AD04/22/18 1447 REVIEWED WITH PT. BVREVIEWED WITH PT 07/03/18 1040 LASREVIEWED WITH PATIENT 07/24/18 1042 JS. HOSPITALIZATION/MAJOR DIAGNOSTIC PROCEDURE LOW BACK PAIN, LEFT HIP AND LEG PAIN 11/2017 NUMBNESS LEFT LEG AFTER PROCEDURE 12/15/17 POST-HYSTERECTOMY OVERNIGHT STAY 06/2018 REVIEW OF SYSTEMS REVIEWED BY: PROVIDER: . CONSTITUTIONAL: ANY CHANGE IN YOUR MEDICAL CONDITION? NO . CHILLS NO . FEVER NO . INFECTION: DO YOU HAVE NEW INFECTIONS? NO . DO YOU HAVE HISTORY OF MRSA? NO . MUSCULOSKELETAL: ANY NEW PATTERNS OF PAIN OR NUMBNESS? NO . GASTROENTEROLOGY: ANY NEW CHANGE IN BOWEL CONTROL? NO . GENITOURINARY: ANY NEW CHANGE IN BLADDER CONTROL? NO . IS THERE A CHANCE YOU COULD BE ? NO . HEMATOLOGY/LYMPH: DO YOU TAKE ANY BLOOD THINNERS? (FOR EXAMPLE- COUMADIN, PLAVIX, AGGRENOX, PLATEL, PRADAXA, OR XARELTO) NO . WHEN WAS YOUR LAST DOSE? DATE: TIME: . NEUROLOGY: HAVE YOU FALLEN IN THE PAST 12 MONTHS? NO . ANY NEW EXTREMITY NUMBNESS OR WEAKNESS? NO . CARDIOLOGY: DO YOU HAVE A PACEMAKER OR DEFIBRILLATOR? NO . RESPIRATORY: HAVE YOU BEEN SICK IN THE PAST WEEK? NO . FEVER NO . FLU LIKE SYMPTOMS? NO . COUGH NO . INTEGUMENTARY: DO YOU HAVE ANY RASHES OR OPEN SORES? NO . ALLERGIC/IMMUNO: ARE YOU ALLERGIC TO IV DYE? NO . ANY NEW ALLERGIES? NO . PSYCHIATRIC: DO YOU HAVE THOUGHTS OF HURTING YOURSELF OR SOMEONE ELSE? NO . ARE YOU ABUSED, NEGLECTED, OR IN AN UNSAFE ENVIRONMENT? NO . ENDOCRINOLOGY: ARE YOU DIABETIC? NO . OTHER: DO YOU NEED ANY PRESCRIPTIONS? NO . IF YES, PLEASE LIST: ____ . ANY NEW PROBLEMS WITH YOUR MEDICATIONS? NO . WHEN DID YOU LAST EAT? 10/01/18 0800 . WHEN DID YOU LAST DRINK? 10/01/18 0930 . WHAT DID YOU LAST DRINK? WATER/CRANBERRY JUICE . NAME OF PERSON DRIVING YOU HOME? IN PATIENT . DO YOU HAVE ANY OTHER QUESTIONS OR CONCERNS NO . VITAL SIGNS WT 204 LBS, HT 64.25 IN, BMI 34.74 INDEX, BP 139/78 MM HG, HR 106 /MIN, RR 16 /MIN, TEMP 98.8 F, OXYGEN SAT % 96, REVIEWED BY: EM. ASSESSMENTS MYALGIA, OTHER SITE - M79.18 (PRIMARY) PROCEDURES PN TRIGGER POINT INJECTION WITH STEROIDS PRE PROCEDURE DIAGNOSIS 1. MYALGIA 2. PAIN AT RIGHT SHOULDER AREA POST PROCEDURE DIAGNOSIS 1. MYALGIA 2. PAIN AT RIGHT SHOULDER AREA PROCEDURE TRIGGER POINT INJECTION AT RIGHT SHOULDER AREA SURGEON DR. PEDRO JENKINS RN PATIENT SERVICES NONE ANESTHESIA LOCAL PRE PROCEDURE NOTE THE PATIENT HAS A HISTORY OF CHRONIC PAIN AT THE RIGHT SHOULDER AREA. I EVALUATE THE PATIENT AND REVIEWED THE CHART. THERE IS EVIDENCE OF BANDS OF TISSUE WITH RESTRICTION OF MOVEMENT AND PRESENCE OF TRIGGER POINT AT THE AFFECTED AREA. I WENT OVER THE RISKS, ALTERNATIVES, AND BENEFITS ASSOCIATED WITH THIS PROCEDURE. THE PATIENT WOULD LIKE TO PROCEED AND GIVE CONSENT TO PERFORMED THE PROCEDURE. THE PATIENT DENIES UNEXPLAINABLE WEIGHT LOSS, FEVER, CHILLS, OR NEW CHANGES IN URINARY OR BOWEL CONTROL DESCRIPTION OF PROCEDURE THE PATIENT WAS BROUGHT TO THE PROCEDURE ROOM AND PLACED IN THE SITTING POSITION. THE AREA WAS CLEANED WITH ALCOHOL. THE PROCEDURE WAS DONE USING ASEPTIC STERILE TECHNIQUE. I CHECKED LATERALITY AND THE LEVEL WHERE THE PROCEDURE WAS GOING TO BE PERFORMED WITH THE PATIENT AND THE SUPPORTING STAFF AT THE MOMENT OF THE TIME OUT IN THE RIGHT SHOULDER AREA WITH A TOTAL OF 40 ML OF BUPIVACAINE 0.25% AND KENALOG 40 MG. THERE WAS NO EVIDENCE OF BLOOD, PARESTHESIA OR CEREBROSPINAL FLUID DURING THE PROCEDURE. THE PATIENT WAS SENT TO THE RECOVERY ROOM. THE PATIENT WAS MOVING THE EXTREMITIES AND DOING WELL. THERE WAS NO COMPLICATION DURING THE PROCEDURE POST PROCEDURE NOTE THE PATIENT WILL BE SEEN IN A FOLLOW UP IN THE NEXT FEW WEEKS. INSTRUCTIONS WERE GIVEN, QUESTIONS WERE ANSWERED, AND THE PATIENT EXPRESSED UNDERSTANDING AND AGREES WITH THE PLAN. I, SIMONE CARNES, DOCUMENTED THE ABOVE INFORMATION ACTING A SCRIBE FOR DR. JENKINS. I HAVE REVIEWED THE ABOVE DOCUMENT, WRITTEN BY SIMONE CARNES SCRIBE AND I VERIFY THAT IT IS ACCURATE. PROCEDURE CODES 33052 INJ TRIGGER POINT 08/05 [facility] [place] DISPOSITION & COMMUNICATION FOLLOW UP 3 WEEKS ELECTRONICALLY SIGNED BY PEDRO JENKINS MD, MD ON 10/10/2018 AT 07:03 PM EST DISCLAIMER : THIS IS A VISIT SUMMARY EXTRACTED FROM THE [employer] CHART. IT IS NOT A COPY OF THE [employer] PROGRESS NOTE. SHAKILA
== END ==
LOC: M PAIN 14:00
PROVIDERS: ATTEND Anesthesiology
DX: M79.18 Myalgia, other site (principal); M25.511 Pain in right shoulder; E11.9 Type 2 diabetes mellitus without complications; E55.9 Vitamin D deficiency, unspecified; Z79.4 Long term (current) use of insulin; Z79.899 Other long term (current) drug therapy; Z86.69 Personal history of other diseases of the nervous system and sense organs
CPT/HCPCS: 20552; J3301

== ENCOUNTER 2018-10-16 12:23 | Emergency (ER) | payer BC, OTHER ==
[~2018-10-16] VITALS: Ht 165.1 cm; Wt 92.5 kg
[~2018-10-16 12:23] MED LIST changes: -BUPIVACAINE HCL 0.25% 10 ML VIAL As Ordered ONE; -BUPIVACAINE HCL 0.25% 30 ML VIAL As Ordered ONE; -TRIAMCINOLONE ACETONIDE SUSP 40 MG/ML VIAL (J3301) As Ordered ONE
[2018-10-16] MEDS ORDERED: diazePAM 5 MG TAB PO ONE (14:15)
[2018-10-16] MEDS ORDERED: KETOROLAC 60 MG/2 ML VIAL (J1885) IM ONE (14:15)
[2018-10-16 14:44] VITALS: BP 118/73
== END 2018-10-16 15:30 | disposition home or self-care (01) ==
LOC: M ED 12:23
DX: M54.12 Radiculopathy, cervical region (principal); E11.9 Type 2 diabetes mellitus without complications; I10 Essential (primary) hypertension
CPT/HCPCS: 96372; 99283; J1885

== ENCOUNTER → 2018-10-19 | Outpatient (CLI) | payer BC, OTHER ==
--- NOTE | 2018-10-31 01:42 | ECWPNPC ---
PATIENT NAME: MARQUIS DOUGHERTY : 1965 GENDER: FEMALE VISIT DATE: 10/19/2018 DISCHARGE DATE: 10/19/18 1558 VISIT LOCKED DATE TIME: PHYSICIAN: PEDRO JENKINS MD RESOURCE: PEDRO JENKINS MD REASON FOR APPOINTMENT 1. F/U OK PER MJ HISTORY OF PRESENT ILLNESS HISTORY OF PRESENT ILLNESS: PAIN THE PATIENT DESCRIBES THE PAIN... 53 YEAR OLD FEMALE PATIENT WITH A HISTORY OF CHRONIC NECK PAIN. THE PATIENT DESCRIBES THE PAIN ACHING, BURNING, SORE, TENDER, AND CONTINUOUS WITH A PAIN SCORE OF 8-10/10 DEPENDING ON PHYSICAL ACTIVITY. THE PATIENT SAYS HER PAIN IS IN HER NECK AND RADIATES INTO HER RIGHT SHOULDER. THE PATIENT RECEIVED A TRIGGER POINT INJECTION AN INPATIENT ON 10/01/2018 AND REPORTS HAVING ONLY ONE DAY OF PAIN RELIEF. THE PATIENT SAYS THAT SHE HAS DIFFICULTY WORKING AND DOING DAILY ACTIVITIES DUE TO THIS PAIN. PATIENT DENIES UNEXPLAINABLE WEIGHT LOSS, FEVER, CHILLS, NEW CHANGES ON HER URINARY OR BOWEL CONTROL. FALL RISK SCREENING: SCREENING : NO FALLS IN THE PAST YEAR. CURRENT MEDICATIONS TAKING BUSPIRONE HCL 7.5 MG TABLET 1 TABLET ORALLY TWICE A DAY TAKING ROPINIROLE HCL 2 MG TABLET 1 TABLET 1 TO 3 HOURS BEFORE BEDTIME ORALLY ONCE A DAY TAKING METFORMIN HCL 1000 MG TABLET 1 TABLET WITH MEALS ORALLY TWICE A DAY TAKING ATORVASTATIN CALCIUM 40 MG TABLET 1 TABLET ORALLY ONCE A DAY TAKING VITAMIN D2 _ TABLET 25 MGS 1 TABLETS ORALLY WEEKLY TAKING DIVALPROEX SODIUM 500 MG TABLET DELAYED RELEASE 1 TAB ORALLY BID TAKING GABAPENTIN 600 MG TABLET 1 CAPSULE ORALLY THREE TIMES DAILY TAKING ALEVE 220 MG TABLET 1 TABLET WITH FOOD OR MILK NEEDED ORALLY EVERY 12 HRS TAKING LISINOPRIL 20 MG TABLET 1 TABLET ORALLY ONCE A DAY TAKING IBUPROFEN 800 MG TABLET 1 TABLET WITH FOOD OR MILK NEEDED ORALLY THREE TIMES A DAY TAKING DULOXETINE HCL 60 MG CAPSULE DELAYED RELEASE PARTICLES 1 CAPSULE ORALLY BID FOR PAIN TAKING OXYCODONE-ACETAMINOPHEN 5-325 MG TABLET 1 TABLET NEEDED ORALLY EVERY 6 HRS NOT-TAKING SENNA PLUS 8.6-50 MG TABLET 1 TABLET IN THE EVENING NEEDED ORALLY ONCE A DAY NOT-TAKING SOMA 350 MG TABLET 1 TABLET NEEDED ORALLY FOR SPASMS AND PAIN EVERY 6 HOURS NEEDED MDD2 NOT-TAKING PANTOPRAZOLE SODIUM 40 MG TABLET DELAYED RELEASE 1 TABLET ORALLY ONCE A DAY, NOTES: INPATIENT MEDICATION NOT-TAKING TAMSULOSIN HCL 0.4 MG CAPSULE 1 CAPSULE ORALLY BEFORE BEDTIME, NOTES: INPATIENT MEDICATION NOT-TAKING CYCLOBENZAPRINE HCL 5 MG TABLET 1 TABLET ORALLY EVERY 8 HOURS, NOTES: INPATIENT MEDICATION NOT-TAKING HEPARIN SODIUM (PORCINE) 5000 UNIT/ML SOLUTION 1 ML INJECTION EVERY 12 HRS, NOTES: INPATIENT MEDICATION NOT-TAKING HUMALOG 100 UNIT/ML SOLUTION PER SLIDING SCALE SUBCUTANEOUS ACHS, NOTES: INPATIENT MEDICATION NOT-TAKING CYMBALTA 60 MG CAPSULE DELAYED RELEASE PARTICLES 1 CAPSULE ORALLY BID, NOTES: DUPLICATE NOT-TAKING LISINOPRIL 10 10 MG TABLET 1 TAB ORAL ONCE DAILY NOT-TAKING DICLOFENAC SODIUM 50 MG TABLET DELAYED RELEASE 1 TABLET WITH FOOD OR MILK ORALLY BID MEDICATION LIST REVIEWED AND RECONCILED WITH THE PATIENT PAST MEDICAL HISTORY HX OF MAGANA'S PALSY VITAMIN D DEFICIENCY - RESOLVED, DR. MAGAÑA VITAMIN B12 DEFICIENCY - RESOLVED. IBS VERTIGO PAIN LOW BACK, LEFT HIP AND LEG DIABETES MELLITUS ALLERGIES N.K.D.A. SURGICAL HISTORY NECK SURGERY TUBAL LIGATION COLONOSCOPY, DR. RESTREPO. WNL. 02/2009 EMB BENIGN TOTAL HYSTERECTOMY 06/2018 FAMILY HISTORY FATHER: 77 YRS, HODGKINS LYMPHOMA, CABG AT 64-65 MOTHER: 77 YRS, BREAST CANCER @ 64, +LYMPH NODES. CHEMO AND RADIATION. DIABETES SIBLINGS: ALIVE DAUGHTER(S): ALIVE 20 YRS, NO KNOWN MEDICAL PROBLEMS PATERNAL UNCLE: , LUNG CANCER (TOBACCO USE) PATERNAL AUNT: , LUNG CANCER (TOBACCO) MATERNAL UNCLE: , DIABETES SISTER: DIABETES. NO BOWEL OR OVARIAN CANCER IN FAMILY. SOCIAL HISTORY GENERAL: TOBACCO USE ARE YOU A:NONSMOKER NEVER SMOKER LATEX QUESTIONNAIRE LATEX ALLERGY : HAVE YOU EVER DEVELOPED ANY TYPE OF REACTION AFTER HANDLING LATEX PRODUCTS SUCH RUBBER GLOVES, CONDOMS, DIAPHRAGMS, BALLOONS, SOCKS, OR UNDERWEAR?NO LATEX ALLERGY : HAVE YOU EVER DEVELOPED ANY TYPE OF REACTION DURING OR AFTER DENTAL APPOINTMENT, VAGINAL/RECTAL EXAMINATION, SURGICAL PROCEDURE, OR ANY OTHER EXPOSURE?NO LATEX RISK : HAVE YOU EVER HAD ANY DIFFICULTY BREATHING OR HIVES AFTER EATING OR HANDLING ANY FRUITS, OR VEGETABLES; SUCH KIWI, BANANAS, STONE FRUITS, OR CHESTNUTSNO LATEX RISK : DO YOU HAVE A PREVIOUS PERSONAL HISTORY OF MORE THAN NINE SURGERIES, SPINA BIFIDA, OR REPEATED CATHERTIZATIONS? NO LATEX RISK : ARE YOU FREQUENTLY EXPOSED TO LATEX PRODUCTS IN YOUR OCCUPATION?NO DATE ASKED : 10/19/2018 BMI CARE GOAL FOLLOW-UP ABOVE NORMAL BMI FOLLOW-UPLIFESTYLE EDUCATION REGARDING DIET ALCOHOL SCREENING DID YOU HAVE A DRINK CONTAINING ALCOHOL IN THE PAST YEAR?NO POINTS0 INTERPRETATIONNEGATIVE RECREATIONAL DRUG USE DENIES. CAFFEINE 1-2/DAY. HIV / HEP-C SCREENING HIV TEST OFFERED TO PATIENT:YES DATE OFFERED:09/12/2017 TEST ACCEPTED:NO REASON:PATIENT DECLINED HEP-C TEST OFFERED TO PATIENT:YES DATE OFFERED:09/12/2017 TEST ACCEPTED:NO REASON:PATIENT DECLINED RESTORATIONISM [id number] RELIGION LANGUAGE LANGUAGES SPOKEN:ROMANSH EDUCATION LEVEL OF EDUCATION:HIGH SCHOOL LEARNING BARRIERS / SPECIAL NEEDS CHANGE FROM LAST VISIT?NO BARRIERS TO LEARNING?NO HEARING IMPAIRED?NO VISION IMPAIRED?YES :CORRECTIVE LENSES COGNITIVELY IMPAIRED?NO READINESS TO LEARN?YES LEARNING PREFERENCES?NO LEARNING CAPABILITIES PRESENT?YES EMOTIONAL BARRIERS?NO SPECIAL DEVICES?NO INVESTOR RELATIONS MANAGER NEEDED?NO DOMESTIC VIOLENCE DO YOU FEEL SAFE IN YOUR ENVIRONMENT?YES 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 DIET: NEEDS IMPROVEMENT., GLUTEN FREE. EXERCISE: NO REGULAR EXERCISE. MARITAL STATUS: . OTHERS AT HOME: SPOUSE, CHILD. PAIN CLINIC PFS, CLERGY, PUBLIC HEALTH REFERRALS PFS REFERRAL NEEDED?NO CLERGY REFERRAL NEEDED?NO PUBLIC HEALTH REFERRAL NEEDED?NO WAS THE PROVIDER NOTIFIED OF ANY PERTINENT INFO?YES HAS THE PATIENT BEEN EDUCATED REGARDING HIS/HER PLAN OF CARE?YES HAS THE PATIENT BEEN EDUCATED REGARDING PAIN, THE RISK FOR PAIN, THE IMPORTANCE OF EFFECTIVE PAIN MANAGEMENT, AND THE PAIN ASSESSMENT PROCESS?YES ADVANCE DIRECTIVE ADVANCE DIRECTIVE DISCUSSED WITH PATIENT:YES PT DECLINES HCP INFORMATION AT THIS TIME. 12/11/17 1430 REVIEWED WITH PT. BV12/15/17 1120 REVIEWED WITH PT. 12/31/17 1200 REVIEWED WITH PT. AD02/03/18 1440 REVIEWED WITH PT. AD04/22/18 1447 REVIEWED WITH PT. BVREVIEWED WITH PATIENT 10/19/18 1436 JSREVIEWED WITH PT 07/03/18 1040 LASREVIEWED WITH PATIENT 07/24/18 1042 JS. HOSPITALIZATION/MAJOR DIAGNOSTIC PROCEDURE LOW BACK PAIN, LEFT HIP AND LEG PAIN 11/2017 NUMBNESS LEFT LEG AFTER PROCEDURE 12/15/17 POST-HYSTERECTOMY OVERNIGHT STAY 06/2018 REVIEW OF SYSTEMS REVIEWED BY: PROVIDER: PEDRO JENKINS MD . CONSTITUTIONAL: ANY CHANGE IN YOUR MEDICAL CONDITION? NO . CHILLS NO . FEVER NO . INFECTION: DO YOU HAVE NEW INFECTIONS? NO . DO YOU HAVE HISTORY OF MRSA? NO . MUSCULOSKELETAL: ANY NEW PATTERNS OF PAIN OR NUMBNESS? YES, STATES PAIN IN RIGHT SHOULDER EXCRUTIATING, WENT TO ED FRIDAY BECAUSE THE PAIN WAS SO BAD THAT SHE HAD TO LEAVE WORK EARLY, STATES SHE WAS GIVEN A PAIN SHOT AND A PILL THAT PROVIDED NO RELIEF . GASTROENTEROLOGY: ANY NEW CHANGE IN BOWEL CONTROL? NO . GENITOURINARY: ANY NEW CHANGE IN BLADDER CONTROL? NO . IS THERE A CHANCE YOU COULD BE ? NO . HEMATOLOGY/LYMPH: DO YOU TAKE ANY BLOOD THINNERS? (FOR EXAMPLE- COUMADIN, PLAVIX, AGGRENOX, PLATEL, PRADAXA, OR XARELTO) NO . WHEN WAS YOUR LAST DOSE? DATE: TIME: . NEUROLOGY: HAVE YOU FALLEN IN THE PAST 12 MONTHS? NO . ANY NEW EXTREMITY NUMBNESS OR WEAKNESS? YES, STATES WEAKNESS TO RIGHT ARM AND HAND, UNABLE TO PIN INSERTER REGULATOR ITEMS WITH RIGHT HAND IN THE MORNING . CARDIOLOGY: DO YOU HAVE A PACEMAKER OR DEFIBRILLATOR? NO . RESPIRATORY: HAVE YOU BEEN SICK IN THE PAST WEEK? NO . FEVER NO . FLU LIKE SYMPTOMS? NO . COUGH NO . INTEGUMENTARY: DO YOU HAVE ANY RASHES OR OPEN SORES? NO . ALLERGIC/IMMUNO: ARE YOU ALLERGIC TO IV DYE? NO . ANY NEW ALLERGIES? NO . PSYCHIATRIC: DO YOU HAVE THOUGHTS OF HURTING YOURSELF OR SOMEONE ELSE? NO . ARE YOU ABUSED, NEGLECTED, OR IN AN UNSAFE ENVIRONMENT? NO . ENDOCRINOLOGY: ARE YOU DIABETIC? YES . OTHER: DO YOU NEED ANY PRESCRIPTIONS? YES . IF YES, PLEASE LIST: ____CYMBALTA AND WOULD LIKE SOMETHING FOR THE PAIN IN HER SHOULDER . ANY NEW PROBLEMS WITH YOUR MEDICATIONS? NO . WHEN DID YOU LAST EAT? ____ . WHEN DID YOU LAST DRINK? ____ . WHAT DID YOU LAST DRINK? ____ . NAME OF PERSON DRIVING YOU HOME? ____ . DO YOU HAVE ANY OTHER QUESTIONS OR CONCERNS NO . VITAL SIGNS WT 201 LBS, HT 64.25 IN, BMI 34.23 INDEX, BP 120/86 MM HG, HR 99 /MIN, RR 18 /MIN, TEMP 96.2 F, OXYGEN SAT % 97%, SAFE IN ENV? (Y/N) YES, NA INITIALS SC 14:22, REVIEWED BY: RUBY. EXAMINATION GENERAL EXAMINATION: PATIENT IS ALERT O X 3 AND COOPERATIVE. TENDERNESS IN THE NECK AREA. PAIN INCREASES OVER THE CERVICAL FACET JOINTS WITH EXTENSION AND LATERAL ROTATION OF THE NECK. CT OF THE CERVICAL SPINE DONE ON 09/29/2018 SHOWS A FUSION AT C5 THROUGH C7 AND FACET ARTHROPATHY CHANGES AT MULTIPLE LEVELS. ASSESSMENTS SPONDYLOSIS OF CERVICAL REGION WITHOUT MYELOPATHY OR RADICULOPATHY - M47.812 (PRIMARY) TREATMENT SPONDYLOSIS OF CERVICAL REGION WITHOUT MYELOPATHY OR RADICULOPATHY CLINICAL NOTES: WE DISCUSSED SEVERAL ISSUES WITH MRS. DOUGHERTY'S PAIN MANAGEMENT CASE. DUE TO THE CERVICAL SPONDYLOSIS, I WOULD LIKE TO MOVE FORWARD WITH A RIGHT C4-C5, C5-C6 THERAPEUTIC CERVICAL FACET BLOCK AT THIS TIME. WE DISCUSSED THE BENEFITS, RISKS, AND ALTERNATIVES OF THE INJECTION AND THE PATIENT WOULD LIKE TO PROCEED. I WILL ALSO ORDER A CERVICAL MRI TO VIEW THE SOFT TISSUES OF THE NECK AND GET A BETTER UNDERSTANDING OF WHERE THE PATIENT'S PAIN IS COMING FROM. THE PATIENT WILL FOLLOW UP A FEW WEEKS AFTER THE INJECTION. INSTRUCTIONS WERE GIVEN, QUESTIONS WERE ANSWERED, PATIENT REPORTS UNDERSTANDING AND AGREES WITH THE PLAN. I, SIMONE CARNES, DOCUMENTED THE ABOVE INFORMATION ACTING A SCRIBE FOR DR. JENKINS. I HAVE REVIEWED THE ABOVE DOCUMENT, WRITTEN BY SIMONE HOFFMAN AND I VERIFY THAT IT IS ACCURATE. . OTHERS NOTES: FACET JOINT INJECTION MATERIAL WAS PRINTED,FACET JOINT INJECTION: YOUR EXPERIENCE MATERIAL WAS PRINTED. PREVENTIVE MEDICINE PAIN CLINIC TEACHING: PROCEDURE TEACHING PRINTED AND REVIEWED INFORMATION ON FACET JOINT INJECTION WITH PATIENT. ALSO REVIEWED PRE-PROCEDURE INSTRUCTIONS. PATIENT VERBALIZED AN UNDERSTANDING. JESSJACQUI Tan 10/19/2018 4:05:53 PM > . PROCEDURE CODES FA211 ESTABILISHED PATIENT [facility] FACILITY CHARGE G8427 CURRENT MEDS W/DOSAGES DOCUMENTED G8730 PAIN ASSESS POS TOOL F/U PLAN DOC DISPOSITION & COMMUNICATION FOLLOW UP REQUESTING AUTH ELECTRONICALLY SIGNED BY PEDRO JENKINS MD, MD ON 10/30/2018 AT 12:42 PM EDT DISCLAIMER : THIS IS A VISIT SUMMARY EXTRACTED FROM THE [facility] CHART. IT IS NOT A COPY OF THE [facility] PROGRESS NOTE. MTDD
== END ==
LOC: M PAIN 14:00
PROVIDERS: ATTEND Anesthesiology
DX: M47.812 Spondylosis without myelopathy or radiculopathy, cervical region (principal); G89.29 Other chronic pain; E11.9 Type 2 diabetes mellitus without complications; E55.9 Vitamin D deficiency, unspecified; Z79.84 Long term (current) use of oral hypoglycemic drugs; Z79.899 Other long term (current) drug therapy; Z86.69 Personal history of other diseases of the nervous system and sense organs

== ENCOUNTER → 2018-11-12 | Outpatient (CLI) | payer BC, OTHER ==
[~2018-11-12] MED LIST changes: -/CARB20TAB PO; -/METO25TAB PO; +BUPIVACAINE HCL 0.25% 30 ML VIAL As Ordered ONE; +CARB1TAB20 PO; +ISOVUE-M 300 61% 15ML VIAL (Q9967) As Ordered ONE; +LIDOCAINE 1% SDV INJ 30 ML VIAL As Ordered ONE; +METO1TAB87 PO; -SENN1TAB2 PO; +SENN1TAB40 PO; +TRIAMCINOLONE ACETONIDE SUSP 40 MG/ML VIAL (J3301) As Ordered ONE; +diazePAM 5 MG TAB As Ordered ONE; +oxyCODONE 5MG TAB As Ordered ONE
--- NOTE | 2018-11-12 11:39 | REP ---
CERVICAL SPINE LIMITED STUDY: Single view. HISTORY: Facet block for pain. 1 minute 34 seconds of fluoroscopy time is reported. FINDINGS: A single last image hold fluoroscopically obtained spot radiograph of the cervical spine documents needle positions and contrast injections associated with right cervical facet injection procedure. Electronically Signed by Baldomero Reyna MD 11/12/2018 06:34 P
--- NOTE | 2018-11-30 00:09 | ECWPNPC ---
PATIENT NAME: MARQUIS DOUGHERTY : 1965 GENDER: FEMALE VISIT DATE: 11/12/2018 DISCHARGE DATE: 11/12/18 1051 VISIT LOCKED DATE TIME: PHYSICIAN: PEDRO JENKINS MD RESOURCE: PEDRO JENKINS MD REASON FOR APPOINTMENT 1. RIGHT C3-4, C4-C5 CFBT HISTORY OF PRESENT ILLNESS HISTORY OF PRESENT ILLNESS: PAIN THE PATIENT DESCRIBES THE PAIN... FALL RISK SCREENING: SCREENING :NO FALLS REPORTED IN THE LAST YEAR CURRENT MEDICATIONS TAKING BUSPIRONE HCL 7.5 MG TABLET 1 TABLET ORALLY TWICE A DAY, NOTES: 11/11/18 TAKING ROPINIROLE HCL 2 MG TABLET 1 TABLET 1 TO 3 HOURS BEFORE BEDTIME ORALLY ONCE A DAY, NOTES: 11/11/18 TAKING METFORMIN HCL 1000 MG TABLET 1 TABLET WITH MEALS ORALLY TWICE A DAY, NOTES: 11/11/18 TAKING ATORVASTATIN CALCIUM 40 MG TABLET 1 TABLET ORALLY ONCE A DAY, NOTES: 11/11/18 TAKING VITAMIN D2 _ TABLET 25 MGS 1 TABLETS ORALLY WEEKLY, NOTES: LAST FRIDAY TAKING DIVALPROEX SODIUM 500 MG TABLET DELAYED RELEASE 1 TAB ORALLY BID, NOTES: 11/11/18 TAKING GABAPENTIN 600 MG TABLET 1 CAPSULE ORALLY THREE TIMES DAILY, NOTES: 11/11/18 TAKING ALEVE 220 MG TABLET 1 TABLET WITH FOOD OR MILK NEEDED ORALLY EVERY 12 HRS, NOTES: LAST TAKING LISINOPRIL 20 MG TABLET 1 TABLET ORALLY ONCE A DAY, NOTES: 11/11/18 TAKING IBUPROFEN 800 MG TABLET 1 TABLET WITH FOOD OR MILK NEEDED ORALLY THREE TIMES A DAY, NOTES: NONE LATELY TAKING DULOXETINE HCL 60 MG CAPSULE DELAYED RELEASE PARTICLES 1 CAPSULE ORALLY BID FOR PAIN, NOTES: 11/11/18 TAKING OXYCODONE-ACETAMINOPHEN 5-325 MG TABLET 1 TABLET NEEDED ORALLY EVERY 6 HRS, NOTES: 11/11/18 NOT-TAKING SENNA PLUS 8.6-50 MG TABLET 1 TABLET IN THE EVENING NEEDED ORALLY ONCE A DAY NOT-TAKING SOMA 350 MG TABLET 1 TABLET NEEDED ORALLY FOR SPASMS AND PAIN EVERY 6 HOURS NEEDED MDD2 NOT-TAKING PANTOPRAZOLE SODIUM 40 MG TABLET DELAYED RELEASE 1 TABLET ORALLY ONCE A DAY, NOTES: INPATIENT MEDICATION NOT-TAKING TAMSULOSIN HCL 0.4 MG CAPSULE 1 CAPSULE ORALLY BEFORE BEDTIME, NOTES: INPATIENT MEDICATION NOT-TAKING CYCLOBENZAPRINE HCL 5 MG TABLET 1 TABLET ORALLY EVERY 8 HOURS, NOTES: INPATIENT MEDICATION NOT-TAKING HEPARIN SODIUM (PORCINE) 5000 UNIT/ML SOLUTION 1 ML INJECTION EVERY 12 HRS, NOTES: INPATIENT MEDICATION NOT-TAKING HUMALOG 100 UNIT/ML SOLUTION PER SLIDING SCALE SUBCUTANEOUS ACHS, NOTES: INPATIENT MEDICATION NOT-TAKING CYMBALTA 60 MG CAPSULE DELAYED RELEASE PARTICLES 1 CAPSULE ORALLY BID, NOTES: DUPLICATE NOT-TAKING LISINOPRIL 10 10 MG TABLET 1 TAB ORAL ONCE DAILY NOT-TAKING DICLOFENAC SODIUM 50 MG TABLET DELAYED RELEASE 1 TABLET WITH FOOD OR MILK ORALLY BID MEDICATION LIST REVIEWED AND RECONCILED WITH THE PATIENT PAST MEDICAL HISTORY HX OF MAGANA'S PALSY VITAMIN D DEFICIENCY - RESOLVED, DR. MAGAÑA VITAMIN B12 DEFICIENCY - RESOLVED. IBS VERTIGO PAIN LOW BACK, LEFT HIP AND LEG DIABETES MELLITUS ALLERGIES N.K.D.A. SURGICAL HISTORY NECK SURGERY TUBAL LIGATION COLONOSCOPY, DR. RESTREPO. WNL. 02/2009 EMB BENIGN TOTAL HYSTERECTOMY 06/2018 FAMILY HISTORY FATHER: 77 YRS, HODGKINS LYMPHOMA, CABG AT 64-65 MOTHER: 77 YRS, BREAST CANCER @ 64, +LYMPH NODES. CHEMO AND RADIATION. DIABETES SIBLINGS: ALIVE DAUGHTER(S): ALIVE 20 YRS, NO KNOWN MEDICAL PROBLEMS PATERNAL UNCLE: , LUNG CANCER (TOBACCO USE) PATERNAL AUNT: , LUNG CANCER (TOBACCO) MATERNAL UNCLE: , DIABETES SISTER: DIABETES. NO BOWEL OR OVARIAN CANCER IN FAMILY. SOCIAL HISTORY GENERAL: TOBACCO USE ARE YOU A:NONSMOKER NEVER SMOKER BMI CARE GOAL FOLLOW-UP ABOVE NORMAL BMI FOLLOW-UPLIFESTYLE EDUCATION REGARDING DIET ALCOHOL SCREENING DID YOU HAVE A DRINK CONTAINING ALCOHOL IN THE PAST YEAR?NO POINTS0 INTERPRETATIONNEGATIVE RECREATIONAL DRUG USE DENIES. CAFFEINE 1-2/DAY. HIV / HEP-C SCREENING HIV TEST OFFERED TO PATIENT:YES DATE OFFERED:09/12/2017 TEST ACCEPTED:NO REASON:PATIENT DECLINED HEP-C TEST OFFERED TO PATIENT:YES DATE OFFERED:09/12/2017 TEST ACCEPTED:NO REASON:PATIENT DECLINED RESTORATIONISM [id number] BUDDHIST LANGUAGE LANGUAGES SPOKEN:KOREAN EDUCATION LEVEL OF EDUCATION:HIGH SCHOOL LEARNING BARRIERS / SPECIAL NEEDS CHANGE FROM LAST VISIT?NO BARRIERS TO LEARNING?NO HEARING IMPAIRED?NO VISION IMPAIRED?YES :CORRECTIVE LENSES COGNITIVELY IMPAIRED?NO READINESS TO LEARN?YES LEARNING PREFERENCES?NO LEARNING CAPABILITIES PRESENT?YES EMOTIONAL BARRIERS?NO SPECIAL DEVICES?NO SHIPYARD PAINTING SUPERVISOR NEEDED?NO DOMESTIC VIOLENCE DO YOU FEEL SAFE IN YOUR ENVIRONMENT?YES 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 DIET: NEEDS IMPROVEMENT., GLUTEN FREE. EXERCISE: NO REGULAR EXERCISE. MARITAL STATUS: . OTHERS AT HOME: SPOUSE, CHILD. PAIN CLINIC PFS, CLERGY, PUBLIC HEALTH REFERRALS PFS REFERRAL NEEDED?NO CLERGY REFERRAL NEEDED?NO PUBLIC HEALTH REFERRAL NEEDED?NO WAS THE PROVIDER NOTIFIED OF ANY PERTINENT INFO?YES HAS THE PATIENT BEEN EDUCATED REGARDING HIS/HER PLAN OF CARE?YES HAS THE PATIENT BEEN EDUCATED REGARDING PAIN, THE RISK FOR PAIN, THE IMPORTANCE OF EFFECTIVE PAIN MANAGEMENT, AND THE PAIN ASSESSMENT PROCESS?YES ADVANCE DIRECTIVE ADVANCE DIRECTIVE DISCUSSED WITH PATIENT:YES PT DECLINES HCP INFORMATION AT THIS TIME. 12/11/17 1430 REVIEWED WITH PT. BV12/15/17 1120 REVIEWED WITH PT. 12/31/17 1200 REVIEWED WITH PT. AD02/03/18 1440 REVIEWED WITH PT. AD04/22/18 1447 REVIEWED WITH PT. BVREVIEWED WITH PATIENT 10/19/18 1436 JSREVIEWED WITH PT 07/03/18 1040 LASREVIEWED WITH PATIENT 07/24/18 1042 JS. HOSPITALIZATION/MAJOR DIAGNOSTIC PROCEDURE LOW BACK PAIN, LEFT HIP AND LEG PAIN 11/2017 NUMBNESS LEFT LEG AFTER PROCEDURE 12/15/17 POST-HYSTERECTOMY OVERNIGHT STAY 06/2018 REVIEW OF SYSTEMS REVIEWED BY: PROVIDER: . CONSTITUTIONAL: ANY CHANGE IN YOUR MEDICAL CONDITION? NO . CHILLS NO . FEVER NO . INFECTION: DO YOU HAVE NEW INFECTIONS? NO . DO YOU HAVE HISTORY OF MRSA? NO . MUSCULOSKELETAL: ANY NEW PATTERNS OF PAIN OR NUMBNESS? NO . GASTROENTEROLOGY: ANY NEW CHANGE IN BOWEL CONTROL? NO . GENITOURINARY: ANY NEW CHANGE IN BLADDER CONTROL? NO . IS THERE A CHANCE YOU COULD BE ? NO . HEMATOLOGY/LYMPH: DO YOU TAKE ANY BLOOD THINNERS? (FOR EXAMPLE- COUMADIN, PLAVIX, AGGRENOX, PLATEL, PRADAXA, OR XARELTO) NO . WHEN WAS YOUR LAST DOSE? DATE: TIME: . NEUROLOGY: HAVE YOU FALLEN IN THE PAST 12 MONTHS? NO . ANY NEW EXTREMITY NUMBNESS OR WEAKNESS? NO . CARDIOLOGY: DO YOU HAVE A PACEMAKER OR DEFIBRILLATOR? NO . RESPIRATORY: HAVE YOU BEEN SICK IN THE PAST WEEK? NO . FEVER NO . FLU LIKE SYMPTOMS? NO . COUGH NO . INTEGUMENTARY: DO YOU HAVE ANY RASHES OR OPEN SORES? NO . ALLERGIC/IMMUNO: ARE YOU ALLERGIC TO IV DYE? NO . ANY NEW ALLERGIES? NO . PSYCHIATRIC: DO YOU HAVE THOUGHTS OF HURTING YOURSELF OR SOMEONE ELSE? NO . ARE YOU ABUSED, NEGLECTED, OR IN AN UNSAFE ENVIRONMENT? NO . ENDOCRINOLOGY: ARE YOU DIABETIC? NO . OTHER: DO YOU NEED ANY PRESCRIPTIONS? NO . IF YES, PLEASE LIST: ____ . ANY NEW PROBLEMS WITH YOUR MEDICATIONS? NO . WHEN DID YOU LAST EAT? 11/11/181799 . WHEN DID YOU LAST DRINK? 11/11/171799 . WHAT DID YOU LAST DRINK? WATER . NAME OF PERSON DRIVING YOU HOME? AMAURY . DO YOU HAVE ANY OTHER QUESTIONS OR CONCERNS NO . VITAL SIGNS WT 201 LBS, HT 64.25 IN, BMI 34.23 INDEX, BP 148/87 MM HG, HR 81 /MIN, RR 18 /MIN, TEMP 98.6 F, OXYGEN SAT % 97%, NA INITIALS SC 09:05, REVIEWED BY: EM. ASSESSMENTS SPONDYLOSIS OF CERVICAL REGION WITHOUT MYELOPATHY OR RADICULOPATHY - M47.812 (PRIMARY) TREATMENT SPONDYLOSIS OF CERVICAL REGION WITHOUT MYELOPATHY OR RADICULOPATHY SMC FACET BLOCK (PAIN)[id number] PROCEDURES PN CERVICAL FACET BLOCK LOW BILATERAL CERVICAL PRE PROCEDURE DIAGNOSIS CERVICAL SPONDYLOSIS POST PROCEDURE DIAGNOSIS CERVICAL SPONDYLOSIS PROCEDURE RIGHT C3-C4 AND RIGHT C4-C5 CERVICAL FACET BLOCK SURGEON DR. PEDRO JENKINS SALES ASSISTANTS AND SALESPERSONS NONE ANESTHESIA LOCAL PRE PROCEDURE NOTE THE PATIENT HAS HISTORY OF CHRONIC CERVICAL PAIN. I EVALUATED THE PATIENT AND REVIEWED THE CHART. I WENT OVER THE RISKS, ALTERNATIVES, AND BENEFITS ASSOCIATED WITH THIS PROCEDURE. THE PATIENT WOULD LIKE TO PROCEED AND GIVE CONSENT TO PERFORMED THE PROCEDURE. THE PATIENT DENIES UNEXPLAINABLE WEIGHT LOSS, FEVER, CHILLS, OR NEW CHANGES IN URINARY OR BOWEL CONTROL. DESCRIPTION OF PROCEDURE THE PATIENT WAS BROUGHT TO THE PROCEDURE ROOM AND PLACED IN THE PRONE POSITION. THE CERVICOTHORACIC AREA WAS CLEANED WITH CHLORAPREP SOLUTION AND DRAPED ASEPTICALLY. THE PROCEDURE WAS DONE UNDER STERILE CONDITIONS. I CHECKED LATERALITY AND THE LEVEL WHERE THE PROCEDURE WAS GOING TO BE PERFORMED WITH THE PATIENT AND THE SUPPORTING STAFF AT THE MOMENT OF THE TIME OUT IN THE PROCEDURE ROOM. UNDER FLUOROSCOPIC GUIDANCE, TARGET POINT WAS SELECTED AT THE RIGHT C3-C4 AND RIGHT C4-C5 CERVICAL FACET JOINT. TARGET POINTS WERE SELECTED AFTER LATERAL ROTATION AND TILT OF THE MAGNIFIER OF THE C-ARM. LIDOCAINE 0.5% WAS USED TO NUMB THE SKIN AND THE SUBCUTANEOUS TISSUE BELOW IT. SPINAL NEEDLES, 22-GAUGE, WERE ADVANCED UNDER FLUOROSCOPIC GUIDANCE AND FOLLOWING PATIENT FEEDBACK UNTIL THE TARGETS WERE TOUCHED. THE POSITION OF THE NEEDLES WAS VERIFIED WITH AP AND LATERAL VIEWS. AFTER PROPER POSITION OF THE NEEDLES WAS ACHIEVED, ISOVUE M DYE 30, 0.1 ML WAS INJECTED SHOWING SPREAD OF THE DYE. THEN A SOLUTION OF 0.9 ML OF BUPIVACAINE 0.125% AND KENALOG 10 MG WAS INJECTED AT EACH SITE. THERE WAS NO EVIDENCE OF BLOOD, PARESTHESIA OR CEREBROSPINAL FLUID DURING THE PROCEDURE. THE PATIENT WAS SENT TO THE RECOVERY ROOM. THE PATIENT WAS MOVING THE EXTREMITIES AND DOING WELL. THERE WAS NO COMPLICATION DURING THE PROCEDURE. FLUOROSCOPY TIME WAS 94 SECONDS POST PROCEDURE NOTE THE PATIENT WILL BE SEEN IN A FOLLOW UP IN THE NEXT FEW WEEKS. INSTRUCTIONS WERE GIVEN, QUESTIONS WERE ANSWERED, AND THE PATIENT EXPRESSED UNDERSTANDING AND AGREES WITH THE PLAN. I, SINA MENDOZA, DOCUMENTED THE ABOVE INFORMATION ACTING A SCRIBE FOR DR. JENKINS. I HAVE REVIEWED THE ABOVE DOCUMENT, WRITTEN BY SINA MONTANOIBZander AND I VERIFY THAT IT IS ACCURATE. PROCEDURE CODES 96688 INJ PARAVERT F JNT C/T 1 LEV, MODIFIERS: [place] [id number] INJ PARAVERT F JNT C/T 2 LEV, MODIFIERS: RT 6045F RADXPS IN END [id number] PXD DISPOSITION & COMMUNICATION FOLLOW UP 3 WEEKS ELECTRONICALLY SIGNED BY PEDRO JENKINS MD, ON 11/29/2018 AT 07:16 PM EDT DISCLAIMER : THIS IS A VISIT SUMMARY EXTRACTED FROM THE [facility] CHART. IT IS NOT A COPY OF THE [facility] PROGRESS NOTE. MTDD
== END ==
LOC: M PAIN 08:45
PROVIDERS: ATTEND Anesthesiology
DX: G89.29 Other chronic pain (principal); M47.812 Spondylosis without myelopathy or radiculopathy, cervical region; E11.9 Type 2 diabetes mellitus without complications; E55.9 Vitamin D deficiency, unspecified; Z79.84 Long term (current) use of oral hypoglycemic drugs; Z79.899 Other long term (current) drug therapy; Z86.69 Personal history of other diseases of the nervous system and sense organs
CPT/HCPCS: 64490; 64491; J3301; Q9967

== ENCOUNTER → 2018-11-21 | Outpatient (CLI) | payer BC, OTHER ==
[~2018-11-21] MED LIST changes: -BUPIVACAINE HCL 0.25% 30 ML VIAL As Ordered ONE; -ISOVUE-M 300 61% 15ML VIAL (Q9967) As Ordered ONE; -LIDOCAINE 1% SDV INJ 30 ML VIAL As Ordered ONE; -TRIAMCINOLONE ACETONIDE SUSP 40 MG/ML VIAL (J3301) As Ordered ONE; -diazePAM 5 MG TAB As Ordered ONE; -oxyCODONE 5MG TAB As Ordered ONE
--- NOTE | 2018-12-10 09:55 | SLEEPCENT ---
DATE OF PROCEDURE: 11/21/2018 INTERPRETATION: Nocturnal polysomnography was performed to determine pressure therapy in this patient with moderate obstructive sleep apnea with an apnea-hypopnea index (AHI) of 20.9 and a respiratory disturbance index (RDI) of 20.9. She had sleep apnea syndrome symptoms consisting of excessive daytime sleepiness and nonrestorative sleep. She also has comorbidity of diabetes mellitus, type 2. A total of 7 hours and 15 minutes of data was reviewed for the entire titration with 400.5 minutes of sleep identified. Sleep latency was 1 minute. Rapid eye movement (REM) latency was 383 minutes. No slow-wave sleep was identified. Sleep efficiency was 93.6%. EKG showed normal sinus rhythm with an average heart rate of 68 beats per minute. No epileptiform discharge observed. The patient had been placed on a ResMed Eri View full face mask of small size; 5 cm of water pressure was applied to the circuit and the lights were dimmed. Continuous positive airway pressure (CPAP) begun at 5 cm of water pressure was taken to a high of 12 cm of water pressure, which appeared to be optimal. On this pressure, her AHI was 0 and her respiratory arousal index (DAVIES) was 2.2. REM sleep was seen on this pressure with reasonably good waveform. No supine sleep was seen throughout the titration. Oxygen saturation petra was in the 90th percentile. Periodic limb movement index was 22.2. IMPRESSION: 1. Obstructive sleep apnea, moderate, reasonably palliated by CPAP at 12 cm of water pressure, including non REM sleep. The limitation of this study is that no supine sleep was observed. 2. Periodic limb movement, moderate. RECOMMENDATIONS: Recommend continuation of CPAP therapy at the above pressure via a small ResMed Eri View full face mask of mask of her preference. Clinical correlation will be necessary to ensure eradication of symptoms. SHAKILA
== END ==
LOC: M SLEEP 20:00
PROVIDERS: ATTEND Nurse Practitioner Family
DX: G47.33 Obstructive sleep apnea (adult) (pediatric) (principal); G47.61 Periodic limb movement disorder

== ENCOUNTER → 2018-12-08 | Outpatient (CLI) | payer BC, OTHER ==
--- NOTE | 2018-12-21 00:14 | ECWPNPC ---
PATIENT NAME: MARQUIS DOUGHERTY : 1965 GENDER: FEMALE VISIT DATE: 12/08/2018 DISCHARGE DATE: 12/08/181656 VISIT LOCKED DATE TIME: PHYSICIAN: PEDRO JENKINS MD RESOURCE: PEDRO JENKINS MD REASON FOR APPOINTMENT 1. POST PROC HISTORY OF PRESENT ILLNESS HISTORY OF PRESENT ILLNESS: PAIN THE PATIENT DESCRIBES THE PAIN... 53 YEAR OLD FEMALE PATIENT WITH A HISTORY OF CHRONIC NECK PAIN. THE PATIENT DESCRIBES THE PAIN ACHING, BURNING, SORE, TENDER, AND CONTINUOUS WITH A PAIN SCORE OF 6-10/10 DEPENDING ON PHYSICAL ACTIVITY. THE PATIENT SAYS THE PAIN STARTS ON MAINLY THE RIGHT SIDE OF HER NECK AND GOES INTO HER RIGHT SHOULDER. THE PATIENT RECEIVED A THERAPEUTIC CERVICAL FACET BLOCK ON 11/12/2018 AND REPORTS HAVING 2 WEEKS OF GOOD PAIN RELIEF IN THE NECK AND RIGHT SHOULDER AREAS. THE PATIENT REPORTS THAT SHORTLY AFTER THE INJECTION SHE EXPERIENCED SOME ITCHING AND BRUISING ALONG HER LEGS. PATIENT DENIES UNEXPLAINABLE WEIGHT LOSS, FEVER, CHILLS, NEW CHANGES ON HER URINARY OR BOWEL CONTROL. FALL RISK SCREENING: SCREENING :NO FALLS REPORTED IN THE LAST YEAR CURRENT MEDICATIONS TAKING BUSPIRONE HCL 7.5 MG TABLET 1 TABLET ORALLY TWICE A DAY TAKING ROPINIROLE HCL 2 MG TABLET 1 TABLET 1 TO 3 HOURS BEFORE BEDTIME ORALLY ONCE A DAY TAKING METFORMIN HCL 1000 MG TABLET 1 TABLET WITH MEALS ORALLY TWICE A DAY TAKING ATORVASTATIN CALCIUM 40 MG TABLET 1 TABLET ORALLY ONCE A DAY TAKING VITAMIN D2 _ TABLET 25 MGS 1 TABLETS ORALLY WEEKLY, NOTES: LAST FRIDAY TAKING DIVALPROEX SODIUM 500 MG TABLET DELAYED RELEASE 1 TAB ORALLY BID, NOTES: 11/11/18 TAKING GABAPENTIN 600 MG TABLET 1 CAPSULE ORALLY THREE TIMES DAILY TAKING ALEVE 220 MG TABLET 1 TABLET WITH FOOD OR MILK NEEDED ORALLY EVERY 12 HRS, NOTES: LAST TAKING LISINOPRIL 20 MG TABLET 1 TABLET ORALLY ONCE A DAY TAKING DULOXETINE HCL 60 MG CAPSULE DELAYED RELEASE PARTICLES 1 CAPSULE ORALLY BID FOR PAIN, NOTES: 11/11/18 TAKING CYMBALTA 60 MG CAPSULE DELAYED RELEASE PARTICLES 1 CAPSULE ORALLY BID, NOTES: DUPLICATE NOT-TAKING IBUPROFEN 800 MG TABLET 1 TABLET WITH FOOD OR MILK NEEDED ORALLY THREE TIMES A DAY, NOTES: NONE LATELY NOT-TAKING OXYCODONE-ACETAMINOPHEN 5-325 MG TABLET 1 TABLET NEEDED ORALLY EVERY 6 HRS, NOTES: 11/11/18 NOT-TAKING SENNA PLUS 8.6-50 MG TABLET 1 TABLET IN THE EVENING NEEDED ORALLY ONCE A DAY NOT-TAKING SOMA 350 MG TABLET 1 TABLET NEEDED ORALLY FOR SPASMS AND PAIN EVERY 6 HOURS NEEDED MDD2 NOT-TAKING PANTOPRAZOLE SODIUM 40 MG TABLET DELAYED RELEASE 1 TABLET ORALLY ONCE A DAY, NOTES: INPATIENT MEDICATION NOT-TAKING TAMSULOSIN HCL 0.4 MG CAPSULE 1 CAPSULE ORALLY BEFORE BEDTIME, NOTES: INPATIENT MEDICATION NOT-TAKING CYCLOBENZAPRINE HCL 5 MG TABLET 1 TABLET ORALLY EVERY 8 HOURS, NOTES: INPATIENT MEDICATION NOT-TAKING HEPARIN SODIUM (PORCINE) 5000 UNIT/ML SOLUTION 1 ML INJECTION EVERY 12 HRS, NOTES: INPATIENT MEDICATION NOT-TAKING HUMALOG 100 UNIT/ML SOLUTION PER SLIDING SCALE SUBCUTANEOUS ACHS, NOTES: INPATIENT MEDICATION NOT-TAKING LISINOPRIL 10 10 MG TABLET 1 TAB ORAL ONCE DAILY NOT-TAKING DICLOFENAC SODIUM 50 MG TABLET DELAYED RELEASE 1 TABLET WITH FOOD OR MILK ORALLY BID MEDICATION LIST REVIEWED AND RECONCILED WITH THE PATIENT PAST MEDICAL HISTORY HX OF MAGANA'S PALSY VITAMIN D DEFICIENCY - RESOLVED, DR. MAGAÑA VITAMIN B12 DEFICIENCY - RESOLVED. IBS VERTIGO PAIN LOW BACK, LEFT HIP AND LEG DIABETES MELLITUS ALLERGIES N.K.D.A. SURGICAL HISTORY NECK SURGERY TUBAL LIGATION COLONOSCOPY, DR. RESTREPO. WNL. 02/2009 EMB BENIGN TOTAL HYSTERECTOMY 06/2018 FAMILY HISTORY FATHER: 77 YRS, HODGKINS LYMPHOMA, CABG AT 64-65 MOTHER: 77 YRS, BREAST CANCER @ 64, +LYMPH NODES. CHEMO AND RADIATION. DIABETES SIBLINGS: ALIVE DAUGHTER(S): ALIVE 20 YRS, NO KNOWN MEDICAL PROBLEMS PATERNAL UNCLE: , LUNG CANCER (TOBACCO USE) PATERNAL AUNT: , LUNG CANCER (TOBACCO) MATERNAL UNCLE: , DIABETES SISTER: DIABETES. NO BOWEL OR OVARIAN CANCER IN FAMILY. SOCIAL HISTORY GENERAL: TOBACCO USE ARE YOU A:NONSMOKER NEVER SMOKER HIV / HEP-C SCREENING HIV TEST OFFERED TO PATIENT:YES DATE OFFERED:09/12/2017 TEST ACCEPTED:NO HEP-C TEST OFFERED TO PATIENT:YES DATE OFFERED:09/12/2017 REASON:PATIENT DECLINED TEST ACCEPTED:NO REASON:PATIENT DECLINED OTHERS AT HOME: SPOUSE, CHILD. EDUCATION LEVEL OF EDUCATION:HIGH SCHOOL DIET: NEEDS IMPROVEMENT., GLUTEN FREE. LANGUAGE LANGUAGES SPOKEN:MALTESE DOMESTIC VIOLENCE DO YOU FEEL SAFE IN YOUR ENVIRONMENT?YES BMI CARE GOAL FOLLOW-UP ABOVE NORMAL BMI [facility] REGARDING DIET RECREATIONAL DRUG USE DENIES. EXERCISE: NO REGULAR EXERCISE. LEARNING BARRIERS / SPECIAL NEEDS CHANGE FROM LAST VISIT?NO BARRIERS TO LEARNING?NO HEARING IMPAIRED?NO VISION IMPAIRED?YES COGNITIVELY IMPAIRED?NO :CORRECTIVE LENSES READINESS TO LEARN?YES LEARNING PREFERENCES?NO LEARNING CAPABILITIES PRESENT?YES EMOTIONAL BARRIERS?NO SPECIAL DEVICES?NO CHALK CUTTER NEEDED?NO PAIN CLINIC PFS, CLERGY, PUBLIC HEALTH REFERRALS PFS REFERRAL NEEDED?NO CLERGY REFERRAL NEEDED?NO PUBLIC HEALTH REFERRAL NEEDED?NO WAS THE PROVIDER NOTIFIED OF ANY PERTINENT INFO?YES HAS THE PATIENT BEEN EDUCATED REGARDING HIS/HER PLAN OF CARE?YES HAS THE PATIENT BEEN EDUCATED REGARDING PAIN, THE RISK FOR PAIN, THE IMPORTANCE OF EFFECTIVE PAIN MANAGEMENT, AND THE PAIN ASSESSMENT PROCESS?YES CAFFEINE 1-2/DAY. ADVANCE DIRECTIVE ADVANCE DIRECTIVE DISCUSSED WITH PATIENT:YES PT DECLINES HCP INFORMATION AT THIS TIME. BUDDHIST [id number] BAHAI MARITAL STATUS: . 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 12/11/17 1430 REVIEWED WITH PT. BV12/15/17 1120 REVIEWED WITH PT. 12/31/17 1200 REVIEWED WITH PT. AD02/03/18 1440 REVIEWED WITH PT. AD04/22/18 1447 REVIEWED WITH PT. BVREVIEWED WITH PATIENT 10/19/18 1436 JSREVIEWED WITH PT 07/03/18 1040 LASREVIEWED WITH PATIENT 07/24/18 1042 JS. HOSPITALIZATION/MAJOR DIAGNOSTIC PROCEDURE LOW BACK PAIN, LEFT HIP AND LEG PAIN 11/2017 NUMBNESS LEFT LEG AFTER PROCEDURE 12/15/17 POST-HYSTERECTOMY OVERNIGHT STAY 06/2018 REVIEW OF SYSTEMS REVIEWED BY: PROVIDER: PEDRO JENKINS MD . CONSTITUTIONAL: ANY CHANGE IN YOUR MEDICAL CONDITION? NO . CHILLS NO . FEVER NO . INFECTION: DO YOU HAVE NEW INFECTIONS? NO . DO YOU HAVE HISTORY OF MRSA? NO . MUSCULOSKELETAL: ANY NEW PATTERNS OF PAIN OR NUMBNESS? NO . GASTROENTEROLOGY: ANY NEW CHANGE IN BOWEL CONTROL? NO . GENITOURINARY: ANY NEW CHANGE IN BLADDER CONTROL? NO . IS THERE A CHANCE YOU COULD BE ? NO . HEMATOLOGY/LYMPH: DO YOU TAKE ANY BLOOD THINNERS? (FOR EXAMPLE- COUMADIN, PLAVIX, AGGRENOX, PLATEL, PRADAXA, OR XARELTO) NO . WHEN WAS YOUR LAST DOSE? DATE: TIME: . NEUROLOGY: HAVE YOU FALLEN IN THE PAST 12 MONTHS? NO . ANY NEW EXTREMITY NUMBNESS OR WEAKNESS? NO . CARDIOLOGY: DO YOU HAVE A PACEMAKER OR DEFIBRILLATOR? NO . RESPIRATORY: HAVE YOU BEEN SICK IN THE PAST WEEK? NO . FEVER NO . FLU LIKE SYMPTOMS? NO . COUGH NO . INTEGUMENTARY: DO YOU HAVE ANY RASHES OR OPEN SORES? PT HAS SEVERAL SMALL BRUISES ON LOWER EXTREMITIES STATES " THEY STARTED AFTER MY PROCEDURE", YES . ALLERGIC/IMMUNO: ARE YOU ALLERGIC TO IV DYE? NO . ANY NEW ALLERGIES? NO . PSYCHIATRIC: DO YOU HAVE THOUGHTS OF HURTING YOURSELF OR SOMEONE ELSE? NO . ARE YOU ABUSED, NEGLECTED, OR IN AN UNSAFE ENVIRONMENT? NO . ENDOCRINOLOGY: ARE YOU DIABETIC? YES . OTHER: DO YOU NEED ANY PRESCRIPTIONS? YES PT NEEDS CYMBALTA REFILLED . IF YES, PLEASE LIST: ____ . ANY NEW PROBLEMS WITH YOUR MEDICATIONS? NO . WHEN DID YOU LAST EAT? ____ . WHEN DID YOU LAST DRINK? ____ . WHAT DID YOU LAST DRINK? ____ . NAME OF PERSON DRIVING YOU HOME? ____ . DO YOU HAVE ANY OTHER QUESTIONS OR CONCERNS NO . VITAL SIGNS WT 200.6 LBS, HT 64.25 IN, BMI 34.16 INDEX, BP 138/67 MM HG, HR 95 /MIN, RR 18 /MIN, TEMP 97.6 F, OXYGEN SAT % 96%, SAFE IN ENV? (Y/N) YES, NA INITIALS SC 14:46, REVIEWED BY: KG. EXAMINATION GENERAL EXAMINATION: PATIENT IS ALERT O X 3 AND COOPERATIVE. TENDERNESS OVER THE NECK AND TOWARDS THE RIGHT SHOULDER. PAIN INCREASES OVER THE CERVICAL FACET JOINTS WITH EXTENSION AND LATERAL ROTATION OF THE NECK. CT OF THE CERVICAL SPINE DONE ON 09/29/2018 SHOWS FACET ARTHROPATHY CHANGES AT MULTIPLE LEVELS AND A FUSION. ASSESSMENTS SPONDYLOSIS OF CERVICAL REGION WITHOUT MYELOPATHY OR RADICULOPATHY - M47.812 (PRIMARY) CERVICAL POST-LAMINECTOMY SYNDROME - M96.1 ECCHYMOSIS - R58 TREATMENT SPONDYLOSIS OF CERVICAL REGION WITHOUT MYELOPATHY OR RADICULOPATHY CLINICAL NOTES: WE DISCUSSED SEVERAL ISSUES WITH MRS. DOUGHERTY'S PAIN MANAGEMENT CASE. DUE TO THE CERVICAL SPONDYLOSIS, I WOULD LIKE TO MOVE FORWARD WITH A RIGHT C3-C4, C4-C5 DIAGNOSTIC CERVICAL FACET BLOCK TO CONSIDER RADIOFREQUENCY. WE DISCUSSED THE BENEFITS, RISKS, AND ALTERNATIVES OF THE PROCEDURE AND THE PATIENT WOULD LIKE TO PROCEED. I WOULD LIKE THE PATIENT TO BE CLEARED BY HER PRIMARY CARE PHYSICIAN REGARDING THE BRUISING AND ITCHING BEFORE PROCEEDING WITH THE PROCEDURE. THE PATIENT WILL FOLLOW UP A FEW WEEKS AFTER THE PROCEDURE. INSTRUCTIONS WERE GIVEN, QUESTIONS WERE ANSWERED, PATIENT REPORTS UNDERSTANDING AND AGREES WITH THE PLAN. I, SIMONE CARNES, DOCUMENTED THE ABOVE INFORMATION ACTING A SCRIBE FOR DR. JENKINS. I HAVE REVIEWED THE ABOVE DOCUMENT, WRITTEN BY SIMONE HOFFMAN AND I VERIFY THAT IT IS ACCURATE. . OTHERS CONTINUE DULOXETINE HCL CAPSULE DELAYED RELEASE PARTICLES, 60 MG, 1 CAPSULE, ORALLY, BID FOR PAIN, 30 DAYS, 60, REFILLS 1, NOTES: 11/11/18 PROCEDURE CODES FA211 ESTABILISHED PATIENT [facility] CHARGE [id number] CURRENT MEDS W/DOSAGES DOCUMENTED G8730 PAIN ASSESS POS TOOL F/U PLAN DOC DISPOSITION & COMMUNICATION ELECTRONICALLY SIGNED BY PEDRO JENKINS MD, MD ON 12/20/2018 AT 07:42 PM EDT DISCLAIMER : THIS IS A VISIT SUMMARY EXTRACTED FROM THE [employer] CHART. IT IS NOT A COPY OF THE [employer] PROGRESS NOTE. MTDD
== END ==
LOC: M PAIN 14:30
PROVIDERS: ATTEND Anesthesiology
DX: M47.812 Spondylosis without myelopathy or radiculopathy, cervical region (principal); M96.1 Postlaminectomy syndrome, not elsewhere classified; R58 Hemorrhage, not elsewhere classified; Z86.69 Personal history of other diseases of the nervous system and sense organs; E11.9 Type 2 diabetes mellitus without complications; Z79.84 Long term (current) use of oral hypoglycemic drugs; Z79.899 Other long term (current) drug therapy

== ENCOUNTER → 2018-12-29 | Outpatient (REF) | payer OTHER ==
[2018-12-29 13:21] LABS: INR 0.83; PROTHROMBIN TIME 11.5 SECONDS (12.1-14.4)
[2018-12-29 13:22] LABS: PARTIAL THROMBOPLASTIN TIME 30.9 SECONDS (25.4-37.6)
== END ==
LOC: M LAB REF 12:50
PROVIDERS: ATTEND Family Medicine
DX: M96.1 Postlaminectomy syndrome, not elsewhere classified (principal); R23.3 Spontaneous ecchymoses; E11.65 Type 2 diabetes mellitus with hyperglycemia

== ENCOUNTER 2019-03-22 15:28 | Emergency (ER) | payer BC, OTHER ==
[~2019-03-22] VITALS: Ht 165.1 cm; Wt 92.4 kg
[~2019-03-22 15:28] MED LIST changes: -DULO1CAP3 PO; +DULO1CAP6 PO; +METF-791 PO; -METF500T4 PO
[2019-03-22] MEDS ORDERED: OZEM2INJ SC (15:39)
[2019-03-22 16:17] LABS: VENOUS BASE EXCESS 2.9 (-2.0-2.0); VENOUS HCO3 28.6 MEQ/L (23.0-27.0); VENOUS O2 SATURATION 83.7 % (60.0-80.0); VENOUS PARTIAL PRESSURE CO2 47.7 mmHg (38.0-50.0); VENOUS PARTIAL PRESSURE O2 49.3 mmHg (30.0-50.0); VENOUS PH 7.395 UNITS (7.330-7.430); VENOUS STANDARD HCO3 26.7 MEQ/L
[2019-03-22 16:20] LABS: BASO # 0.1 10^3/uL (0.0-0.2); BASO % 0.7 % (0.0-1.0); EOS # 0.1 10^3/uL (0.0-0.50); EOS % 1.2 % (0.0-3.0); HEMATOCRIT 41.4 % (36.0-47.0); HEMOGLOBIN 13.9 g/dl (12.0-15.5); LYMPH # 2.7 10^3/uL (1.5-4.5); LYMPH % 35.5 % (24.0-44.0); MEAN CORPUSCULAR HEMOGLOBIN 31.4 pg (27.0-33.0); MEAN CORPUSCULAR HGB CONC 33.6 g/dl (32.0-36.5); MEAN CORPUSCULAR VOLUME 93.5 fl (80.0-96.0); MONO # 0.5 10^3/uL (0.0-0.8); MONO % 6.1 % (0.0-5.0); NEUTROPHILS # 4.3 10^3/uL (1.8-7.7); NEUTROPHILS % 56.1 % (36.0-66.0); PLATELET COUNT, AUTOMATED 333 10^3/uL (150-450); RED BLOOD COUNT 4.43 10^6/uL (4.00-5.40); WHITE BLOOD COUNT 7.7 10^3/uL (4.0-10.0)
[2019-03-22 16:39] LABS: BLOOD UREA NITROGEN 11 MG/DL (7-18); CALCIUM LEVEL 10.6 MG/DL (8.5-10.1); CARBON DIOXIDE LEVEL 28 MEQ/L (21-32); CHLORIDE LEVEL 100 MEQ/L (98-107); CREATININE FOR GFR 0.76 MG/DL (0.55-1.30); GLOMERULAR FILTRATION RATE > 60.0 (>51); GLUCOSE, FASTING 216 MG/DL (70-100); SODIUM LEVEL 137 MEQ/L (136-145)
[2019-03-22 16:40] LABS: HEMOGLOBIN A1c 9.7 %
[2019-03-22] MEDS ORDERED: ONDANSETRON 4MG/2ML VIAL (J2405) IV ONE (17:45)
[2019-03-22] MEDS ORDERED: NS 1,000 ML IV ONE (17:45)
[2019-03-22] MEDS ORDERED: METOCLOPRAMIDE INJ 10MG/2ML VIAL (J2765) IV ONE (19:00)
[2019-03-22] MEDS ORDERED: ONDA8TAB8 PO (20:07)
[2019-03-22 20:14] VITALS: BP 144/77
== END 2019-03-22 20:16 | disposition home or self-care (01) ==
LOC: M ED 15:28
DX: R11.2 Nausea with vomiting, unspecified (principal); T50.995A Adverse effect of other drugs, medicaments and biological substances, initial encounter; X58.XXXA Exposure to other specified factors, initial encounter; Y92.89 Other specified places as the place of occurrence of the external cause; I10 Essential (primary) hypertension; E11.9 Type 2 diabetes mellitus without complications; E55.9 Vitamin D deficiency, unspecified; E53.9 Vitamin B deficiency, unspecified; E78.00 Pure hypercholesterolemia, unspecified; F33.9 Major depressive disorder, recurrent, unspecified; Z79.899 Other long term (current) drug therapy; Z79.84 Long term (current) use of oral hypoglycemic drugs
CPT/HCPCS: 80048; 82803; 83036; 85025; 96361; 96374; 96375; 99284; J2405; J2765

== ENCOUNTER → 2019-03-26 | Outpatient (REF) | payer BC, OTHER ==
[~2019-03-26] MED LIST changes: -METF-791 PO; +METF500T4 PO; +ONDA8TAB8 PO; +OZEM2INJ SC
[2019-03-26 16:43] LABS: IONIZED CALCIUM 4.7 MG/DL (4.5-5.3)
[2019-03-26 17:04] LABS: PTH INTACT 50.4 PG/ML (18.5-88.0)
== END ==
LOC: M LAB REF 16:12
PROVIDERS: ATTEND Family Medicine
DX: E83.52 Hypercalcemia (principal)

== ENCOUNTER 2019-04-06 17:15 | Emergency (ER) | payer BC, OTHER ==
[~2019-04-06] VITALS: Ht 165.1 cm; Wt 87.7 kg
[~2019-04-06 17:15] MED LIST changes: +METF-791 PO; -METF500T4 PO
[2019-04-06] MEDS ORDERED: MECLIZINE 25 MG TABLET PO ONE (19:30)
[2019-04-06] MEDS ORDERED: NS 1,000 ML IV ONE (19:30)
[2019-04-06] MEDS ORDERED: ONDANSETRON 4MG/2ML VIAL (J2405) IV ONE (19:30)
[2019-04-06 20:03] LABS: BASO % 0.5 % (0.0-1.0); EOS # 0.1 10^3/uL (0.0-0.5); EOS % 0.7 % (0.0-3.0); HEMATOCRIT 43.1 % (36.0-47.0); HEMOGLOBIN 14.2 g/dl (12.0-15.5); LYMPH # 3.7 10^3/uL (1.5-5.0); LYMPH % 42.4 % (24.0-44.0); MEAN CORPUSCULAR HEMOGLOBIN 31.1 pg (27.0-33.0); MEAN CORPUSCULAR HGB CONC 32.9 g/dl (32.0-36.5); MEAN CORPUSCULAR VOLUME 94.3 fl (80.0-96.0); MONO # 0.6 10^3/uL (0.0-0.8); MONO % 6.7 % (0.0-5.0); NEUTROPHILS # 4.3 10^3/uL (1.5-8.5); NEUTROPHILS % 49.4 % (36.0-66.0); PLATELET COUNT, AUTOMATED 351 10^3/uL (150-450); RED BLOOD COUNT 4.57 10^6/uL (4.00-5.40); WHITE BLOOD COUNT 8.7 10^3/uL (4.0-10.0)
--- NOTE | 2019-04-06 20:33 | REPVR ---
EXAM: CT Head Without Contrast EXAM DATE/TIME: 04/06/2019 8:16 PM CLINICAL HISTORY: 54 years old, female; Pain; Headache; Additional info: Dizzy then fall onto head 6 days ago TECHNIQUE: Imaging protocol: Computed tomography of the head without contrast. Radiation optimization: All CT scans at this facility use at least one of these dose optimization techniques: automated exposure control; mA and/or kV adjustment per patient size (includes targeted exams where dose is matched to clinical indication); or iterative reconstruction. COMPARISON: CT Head without contrast 05/05/2013 2:10 PM FINDINGS: Brain: Normal. No hemorrhage. Unremarkable white matter. No mass effect. Ventricles: Normal. No ventriculomegaly. Bones/joints: There is hyperostosis frontalis interna. Sinuses: Visualized sinuses are unremarkable. No fluid levels. Mastoid air cells: Visualized mastoid air cells are well aerated. Soft tissues: Unremarkable. IMPRESSION: No acute findings. No interval change. Electronically signed by: Nasir Cabezas On 04/06/2019 20:33:25 PM
[2019-04-06 20:38] LABS: CK-MB VALUE MASS < 1.0 NG/ML (<3.6); CPK CREATINE PHOSPHOKINASE 81 U/L (26-192); MB/CK RELATIVE INDEX 1.23 (< OR =4); TROPONIN I < 0.02 NG/ML (< 0.10)
--- NOTE | 2019-04-06 20:41 | REPVR ---
EXAM: CT Cervical Spine Without Contrast EXAM DATE/TIME: 04/06/2019 8:16 PM CLINICAL HISTORY: 54 years old, female; Injury or trauma; Fall; Initial encounter; Blunt trauma; Additional info: Dizzy then fall onto head 6 days ago TECHNIQUE: Imaging protocol: Computed tomography images of the cervical spine without contrast. Radiation optimization: All CT scans at this facility use at least one of these dose optimization techniques: automated exposure control; mA and/or kV adjustment per patient size (includes targeted exams where dose is matched to clinical indication); or iterative reconstruction. COMPARISON: CT Spine,cervical w/o contrast 09/29/2018 9:49 AM FINDINGS: Vertebrae: Status post prior anterior fusion C5-C7 using vertebral screws and metallic plates and bone graft material. Minimal anterolisthesis of C3 on C4, a finding which has been noted previously. Discs/Spinal canal/Neural foramina: Mild degenerative arthropathy at the atlantoaxial joint. Moderate to severe foraminal stenosis on the right and mild foraminal stenosis on the left at C3, moderate foraminal stenosis on the left at C4, mild bilateral foraminal stenosis at C5 secondary to uncinate joint hypertrophic changes. Prominent posterior osteophyte C5-6 reduces the anterior posterior diameter of the spinal canal to 8 mm resulting in mild to moderate cord impingement. Disc osteophyte complexes at C5-6 without obvious cord impingement. Soft tissues: Unremarkable. Lungs: Lung apices are normal. IMPRESSION: Stable degenerative spondylosis. Status post anterior fusion of the lower cervical spine. No acute findings. Electronically signed by: Nasir Cabezas On 04/06/2019 20:41:11 PM
[2019-04-06] MEDS ORDERED: METOCLOPRAMIDE INJ 10MG/2ML VIAL (J2765) IV ONE (21:45)
[2019-04-06] MEDS ORDERED: LIDOCAINE 5% (LIDODERM) PATCH TD ONE (21:45)
[2019-04-06] MEDS ORDERED: REGL10TA6 PO (22:26)
[2019-04-06] MEDS ORDERED: ROBA750T4 PO (22:26)
[2019-04-06] MEDS ORDERED: LIDO1PAD TOP (22:26)
[2019-04-06 22:32] VITALS: BP 135/71
--- NOTE | 2019-04-07 07:43 | REP ---
Clinical: Dizziness . Comparison: 07/01/2018 . Technique: PA and lateral. Findings: The mediastinum and cardiac silhouette are normal. The lung hoang are clear and without acute consolidation, effusion, or pneumothorax. The skeletal structures are intact and normal. Impression: 1. No acute cardiopulmonary process. Electronically Signed by Neville Aparicio MD 04/07/2019 07:34 A
[2019-04-07] MEDS ORDERED: **NOTE PATIENT COMMENT** MISC XX SCH (09:00)
--- NOTE | 2019-04-07 17:07 | ECGEPIP ---
[facility] - ED Test Date: 2019-04-06 Pat Name: MARQUIS DOUGHERTY Department: Room: - Gender: Female [place] [employer]roll Line: OLLIE : 1965 Requested By: NATALIE Hamilton PA-C Order Number: [id number] Reading MD: Giuliana hCeng Measurements Intervals [place] Rate: 99 P: 35 VA: 151 QRS: 11 QRSD: 84 T: 12 QT: 367 QTc: 473 Interpretive Statements SINUS RHYTHM LOW QRS VOLTAGE IN PRECORDIAL LEADS NSTTW abnormalities SIMILAR 09/29/18 Electronically Signed on 04-07-2019 17:07:34 EDT by Giuliana Cheng
== END 2019-04-06 22:38 | disposition home or self-care (01) ==
LOC: M ED 17:15
DX: S09.90XA Unspecified injury of head, initial encounter (principal); W19.XXXA Unspecified fall, initial encounter; Z98.1 Arthrodesis status; R42 Dizziness and giddiness; I10 Essential (primary) hypertension; E11.9 Type 2 diabetes mellitus without complications; G50.0 Trigeminal neuralgia; Z79.84 Long term (current) use of oral hypoglycemic drugs
CPT/HCPCS: 70450; 71046; 72125; 80047; 81001; 82550; 82553; 84443; 84484; 85025; 87086; 93005; 96361; 96374; 96375; 99284; J2405; J2765

== ENCOUNTER → 2019-04-19 | Outpatient (CLI) | payer BC, OTHER ==
[~2019-04-19] MED LIST changes: +LIDO1PAD TOP; +REGL10TA6 PO; +ROBA750T4 PO
--- NOTE | 2019-04-30 00:50 | ECWPNPC ---
PATIENT NAME: MARQUIS DOUGHERTY : 1965 GENDER: FEMALE VISIT DATE: 04/19/2019 DISCHARGE DATE: 04/19/19 1453 VISIT LOCKED DATE TIME: PHYSICIAN: PEDRO JENKINS MD RESOURCE: PEDRO JENKINS MD REASON FOR APPOINTMENT 1. NECK PAIN HISTORY OF PRESENT ILLNESS HISTORY OF PRESENT ILLNESS: PAIN THE PATIENT DESCRIBES THE PAIN... 54 YEAR OLD FEMALE PATIENT WITH A HISTORY OF CHRONIC NECK PAIN. THE PATIENT DESCRIBES THE PAIN ACHING, BURNING, SORE, TENDER, SHARP, SHOOTING, AND CONTINUOUS WITH A PAIN SCORE OF 7-10/10 DEPENDING ON PHYSICAL ACTIVITY. THE PATIENT STATES HER PAIN BEGINS MAINLY ON THE RIGHT SIDE OF HER NECK AND GOES DOWN INTO HER RIGHT SHOULDER. THE PATIENT SAYS SHE HAS BEEN SUFFERING FROM THIS PAIN FOR MANY YEARS. THE PATIENT SAYS THE PAIN IS AFFECTING HER ABILITY TO PERFORM HER DAILY ACTIVITIES SUCH CLEANING, COOKING, GROCERY SHOPPING, AND SLEEPING. THE PATIENT MENTIONS SHE HAS A HISTORY OF NECK SURGERY BY DR. MARQUIS, WHICH INVOLVED REMOVAL OF HER LARYNX THROUGH THE FRONT OF HER NECK. PATIENT DENIES UNEXPLAINABLE WEIGHT LOSS, FEVER, CHILLS, NEW CHANGES ON HER URINARY OR BOWEL CONTROL. FALL RISK SCREENING: SCREENING :NO FALLS REPORTED IN THE LAST YEAR CURRENT MEDICATIONS TAKING BUSPIRONE HCL 7.5 MG TABLET 1 TABLET ORALLY TWICE A DAY TAKING ROPINIROLE HCL 2 MG TABLET 1 TABLET 1 TO 3 HOURS BEFORE BEDTIME ORALLY ONCE A DAY TAKING METFORMIN HCL 1000 MG TABLET 1 TABLET WITH MEALS ORALLY TWICE A DAY TAKING ATORVASTATIN CALCIUM 40 MG TABLET 1 TABLET ORALLY ONCE A DAY TAKING VITAMIN D2 _ TABLET 25 MGS 1 TABLETS ORALLY WEEKLY TAKING DIVALPROEX SODIUM 500 MG TABLET DELAYED RELEASE 1 TAB ORALLY BID TAKING GABAPENTIN 600 MG TABLET 1 CAPSULE ORALLY THREE TIMES DAILY TAKING ALEVE 220 MG TABLET 1 TABLET WITH FOOD OR MILK NEEDED ORALLY EVERY 12 HRS TAKING LISINOPRIL 20 MG TABLET 1 TABLET ORALLY ONCE A DAY TAKING CYMBALTA 60 MG CAPSULE DELAYED RELEASE PARTICLES 1 CAPSULE ORALLY BID NOT-TAKING IBUPROFEN 800 MG TABLET 1 TABLET WITH FOOD OR MILK NEEDED ORALLY THREE TIMES A DAY, NOTES: NONE LATELY NOT-TAKING OXYCODONE-ACETAMINOPHEN 5-325 MG TABLET 1 TABLET NEEDED ORALLY EVERY 6 HRS, NOTES: 11/11/18 NOT-TAKING SENNA PLUS 8.6-50 MG TABLET 1 TABLET IN THE EVENING NEEDED ORALLY ONCE A DAY NOT-TAKING SOMA 350 MG TABLET 1 TABLET NEEDED ORALLY FOR SPASMS AND PAIN EVERY 6 HOURS NEEDED MDD2 NOT-TAKING PANTOPRAZOLE SODIUM 40 MG TABLET DELAYED RELEASE 1 TABLET ORALLY ONCE A DAY, NOTES: INPATIENT MEDICATION NOT-TAKING TAMSULOSIN HCL 0.4 MG CAPSULE 1 CAPSULE ORALLY BEFORE BEDTIME, NOTES: INPATIENT MEDICATION NOT-TAKING CYCLOBENZAPRINE HCL 5 MG TABLET 1 TABLET ORALLY EVERY 8 HOURS, NOTES: INPATIENT MEDICATION NOT-TAKING HEPARIN SODIUM (PORCINE) 5000 UNIT/ML SOLUTION 1 ML INJECTION EVERY 12 HRS, NOTES: INPATIENT MEDICATION NOT-TAKING HUMALOG 100 UNIT/ML SOLUTION PER SLIDING SCALE SUBCUTANEOUS ACHS, NOTES: INPATIENT MEDICATION NOT-TAKING LISINOPRIL 10 10 MG TABLET 1 TAB ORAL ONCE DAILY NOT-TAKING DICLOFENAC SODIUM 50 MG TABLET DELAYED RELEASE 1 TABLET WITH FOOD OR MILK ORALLY BID DISCONTINUED DULOXETINE HCL 60 MG CAPSULE DELAYED RELEASE PARTICLES 1 CAPSULE ORALLY BID FOR PAIN MEDICATION LIST REVIEWED AND RECONCILED WITH THE PATIENT PAST MEDICAL HISTORY HX OF MAGANA'S PALSY VITAMIN D DEFICIENCY - RESOLVED, DR. MAGAÑA VITAMIN B12 DEFICIENCY - RESOLVED. IBS VERTIGO PAIN LOW BACK, LEFT HIP AND LEG DIABETES MELLITUS ALLERGIES N.K.D.A. SURGICAL HISTORY NECK SURGERY TUBAL LIGATION COLONOSCOPY, DR. RESTREPO. WNL. 02/2009 EMB BENIGN TOTAL HYSTERECTOMY 06/2018 FAMILY HISTORY FATHER: 77 YRS, HODGKINS LYMPHOMA, CABG AT 64-65 MOTHER: 77 YRS, BREAST CANCER @ 64, +LYMPH NODES. CHEMO AND RADIATION. DIABETES SIBLINGS: ALIVE DAUGHTER(S): ALIVE 20 YRS, NO KNOWN MEDICAL PROBLEMS PATERNAL UNCLE: , LUNG CANCER (TOBACCO USE) PATERNAL AUNT: , LUNG CANCER (TOBACCO) MATERNAL UNCLE: , DIABETES SISTER: DIABETES. NO BOWEL OR OVARIAN CANCER IN FAMILY. SOCIAL HISTORY GENERAL: TOBACCO USE ARE YOU A:NONSMOKER NEVER SMOKER HIV / HEP-C SCREENING HIV TEST OFFERED TO PATIENT:YES DATE OFFERED:09/12/2017 TEST ACCEPTED:NO HEP-C TEST OFFERED TO PATIENT:YES DATE OFFERED:09/12/2017 REASON:PATIENT DECLINED TEST ACCEPTED:NO REASON:PATIENT DECLINED OTHERS AT HOME: SPOUSE, CHILD. EDUCATION LEVEL OF EDUCATION:HIGH SCHOOL DIET: NEEDS IMPROVEMENT., GLUTEN FREE. LANGUAGE LANGUAGES SPOKEN:MALTESE DOMESTIC VIOLENCE DO YOU FEEL SAFE IN YOUR ENVIRONMENT?YES BMI CARE GOAL FOLLOW-UP ABOVE NORMAL BMI [facility] REGARDING DIET RECREATIONAL DRUG USE DENIES. EXERCISE: NO REGULAR EXERCISE. LEARNING BARRIERS / SPECIAL NEEDS CHANGE FROM LAST VISIT?NO BARRIERS TO LEARNING?NO HEARING IMPAIRED?NO VISION IMPAIRED?YES COGNITIVELY IMPAIRED?NO :CORRECTIVE LENSES READINESS TO LEARN?YES LEARNING PREFERENCES?NO LEARNING CAPABILITIES PRESENT?YES EMOTIONAL BARRIERS?NO SPECIAL DEVICES?NO REMOTE PILOT OPERATOR NEEDED?NO PAIN CLINIC PFS, CLERGY, PUBLIC HEALTH REFERRALS PFS REFERRAL NEEDED?NO CLERGY REFERRAL NEEDED?NO PUBLIC HEALTH REFERRAL NEEDED?NO WAS THE PROVIDER NOTIFIED OF ANY PERTINENT INFO?YES HAS THE PATIENT BEEN EDUCATED REGARDING HIS/HER PLAN OF CARE?YES HAS THE PATIENT BEEN EDUCATED REGARDING PAIN, THE RISK FOR PAIN, THE IMPORTANCE OF EFFECTIVE PAIN MANAGEMENT, AND THE PAIN ASSESSMENT PROCESS?YES CAFFEINE 1-2/DAY. ADVANCE DIRECTIVE ADVANCE DIRECTIVE DISCUSSED WITH PATIENT:YES PT DECLINES HCP INFORMATION AT THIS TIME. RASTAFARI [id number] RASTAFARIAN MARITAL STATUS: . 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 12/11/17 1430 REVIEWED WITH PT. BV12/15/17 1120 REVIEWED WITH PT. 12/31/17 1200 REVIEWED WITH PT. AD02/03/18 1440 REVIEWED WITH PT. AD04/22/18 1447 REVIEWED WITH PT. BVREVIEWED WITH PATIENT 10/19/18 1436 JSREVIEWED WITH PT 07/03/18 1040 LASREVIEWED WITH PATIENT 07/24/18 1042 JS. HOSPITALIZATION/MAJOR DIAGNOSTIC PROCEDURE LOW BACK PAIN, LEFT HIP AND LEG PAIN 11/2017 NUMBNESS LEFT LEG AFTER PROCEDURE 12/15/17 POST-HYSTERECTOMY OVERNIGHT STAY 06/2018 REVIEW OF SYSTEMS REVIEWED BY: PROVIDER: PEDRO JENKINS MD . CONSTITUTIONAL: ANY CHANGE IN YOUR MEDICAL CONDITION? NO . CHILLS NO . FEVER NO . INFECTION: DO YOU HAVE NEW INFECTIONS? NO . DO YOU HAVE HISTORY OF MRSA? NO . MUSCULOSKELETAL: ANY NEW PATTERNS OF PAIN OR NUMBNESS? NO . GASTROENTEROLOGY: ANY NEW CHANGE IN BOWEL CONTROL? NO . GENITOURINARY: ANY NEW CHANGE IN BLADDER CONTROL? NO . IS THERE A CHANCE YOU COULD BE ? NO . HEMATOLOGY/LYMPH: DO YOU TAKE ANY BLOOD THINNERS? (FOR EXAMPLE- COUMADIN, PLAVIX, AGGRENOX, PLATEL, PRADAXA, OR XARELTO) NO . WHEN WAS YOUR LAST DOSE? DATE: TIME: . NEUROLOGY: HAVE YOU FALLEN IN THE PAST 12 MONTHS? NO . ANY NEW EXTREMITY NUMBNESS OR WEAKNESS? NO . CARDIOLOGY: DO YOU HAVE A PACEMAKER OR DEFIBRILLATOR? NO . RESPIRATORY: HAVE YOU BEEN SICK IN THE PAST WEEK? NO . FEVER NO . FLU LIKE SYMPTOMS? NO . COUGH NO . INTEGUMENTARY: DO YOU HAVE ANY RASHES OR OPEN SORES? NO . ALLERGIC/IMMUNO: ARE YOU ALLERGIC TO IV DYE? NO . ANY NEW ALLERGIES? NO . PSYCHIATRIC: DO YOU HAVE THOUGHTS OF HURTING YOURSELF OR SOMEONE ELSE? NO . ARE YOU ABUSED, NEGLECTED, OR IN AN UNSAFE ENVIRONMENT? NO . ENDOCRINOLOGY: ARE YOU DIABETIC? YES . OTHER: DO YOU NEED ANY PRESCRIPTIONS? NO . IF YES, PLEASE LIST: ____ . ANY NEW PROBLEMS WITH YOUR MEDICATIONS? NO . WHEN DID YOU LAST EAT? ____ . WHEN DID YOU LAST DRINK? ____ . WHAT DID YOU LAST DRINK? ____ . NAME OF PERSON DRIVING YOU HOME? ____ . DO YOU HAVE ANY OTHER QUESTIONS OR CONCERNS NO . VITAL SIGNS WT 199.6 LBS, HT 64.25 IN, BMI 33.99 INDEX, BP 126/78 MM HG, HR 99 /MIN, RR 18 /MIN, TEMP 97.0 F, OXYGEN SAT % 97%, NA INITIALS AW 1408. EXAMINATION GENERAL EXAMINATION: PATIENT IS ALERT O X 3 AND COOPERATIVE. TENDERNESS IN THE NECK, ESPECIALLY ON THE RIGHT SIDE. PRESENCE OF BANDS OF TISSUE AND TRIGGER POINTS WITH RESTRICTION OF MOVEMENT OF THE NECK. PAIN INCREASES OVER THE CERVICAL FACET JOINTS WITH EXTENSION AND LATERAL ROTATION OF THE NECK, ESPECIALLY OVER THE RIGHT SIDE. CT OF THE CERVICAL SPINE DONE ON 09/29/2018 SHOWS FUSION AT C5-C7, FACET ARTHROPATHY CHANGES AT MULTIPLE LEVELS, AND FORAMINAL NARROWING AT C4-C5 AND C6-C7 LEVELS. ASSESSMENTS CERVICAL DISC DISORDER WITH RADICULOPATHY OF CERVICAL REGION - M50.10 (PRIMARY) CERVICAL POST-LAMINECTOMY SYNDROME - M96.1 CERVICAL SPINAL STENOSIS - M48.02 SPONDYLOSIS OF CERVICAL REGION WITHOUT MYELOPATHY OR RADICULOPATHY - M47.812 TREATMENT CERVICAL DISC DISORDER WITH RADICULOPATHY OF CERVICAL REGION CLINICAL NOTES: WE DISCUSSED SEVERAL ISSUES WITH MS. DOUGHERTY'S PAIN MANAGEMENT CASE. I WOULD LIKE TO REFER THE PATIENT TO ENT SPECIALIST AND SPINE SURGERY WITH NANCY ASHLEY. I WOULD ALSO LIKE TO REVIEW THE NOTES FROM DR. PRETTY IN [place], WHO HAD PERFORMED AN OPERATION ON THE PATIENT SEVERAL YEARS AGO, AND I WILL ALSO REFER THE PATIENT TO DR. PRETTY. I DISCUSSED WITH THE PATIENT THAT I WOULD CONSIDER DOING A TRIGGER POINT INJECTION, A REPEAT CERVICAL FACET BLOCK, OR A CERVICAL EPIDURAL IN THE FUTURE. DUE TO THE TRIGGER POINTS, BANDS OF TISSUE, AND RESTRICTION OF MOVEMENT, I WOULD LIKE TO MOVE FORWARD WITH A TRIGGER POINT INJECTION AT THIS TIME. WE DISCUSSED THE BENEFITS, RISKS, AND ALTERNATIVES OF THE INJECTION AND THE PATIENT WOULD LIKE TO PROCEED. INSTRUCTIONS WERE GIVEN, QUESTIONS WERE ANSWERED, PATIENT REPORTS UNDERSTANDING AND AGREES WITH THE PLAN. I, SINA MENDOZA, DOCUMENTED THE ABOVE INFORMATION ACTING A SCRIBE FOR DR. JENKINS. I HAVE REVIEWED THE ABOVE DOCUMENT, WRITTEN BY SINA MONTANOIBZander AND I VERIFY THAT IT IS ACCURATE. . PROCEDURE CODES FA211 ESTABILISHED PATIENT [facility] FACILITY CHARGE [id number] CURRENT MEDS W/DOSAGES DOCUMENTED G8730 PAIN ASSESS POS TOOL F/U PLAN DOC DISPOSITION & COMMUNICATION FOLLOW UP REASON: TPI, BEING REFERRED TO VARIOUS OFFICES ELECTRONICALLY SIGNED BY PEDRO JENKINS MD, MD ON 04/29/2019 AT 05:57 PM EDT DISCLAIMER : THIS IS A VISIT SUMMARY EXTRACTED FROM THE [employer] CHART. IT IS NOT A COPY OF THE [employer] PROGRESS NOTE. SHAKILA
== END ==
LOC: M PAIN 14:00
PROVIDERS: ATTEND Anesthesiology
DX: M50.10 Cervical disc disorder with radiculopathy, unspecified cervical region (principal); M96.1 Postlaminectomy syndrome, not elsewhere classified; M48.02 Spinal stenosis, cervical region; M47.812 Spondylosis without myelopathy or radiculopathy, cervical region; K58.9 Irritable bowel syndrome, unspecified; R42 Dizziness and giddiness; E11.9 Type 2 diabetes mellitus without complications; Z90.710 Acquired absence of both cervix and uterus; Z79.84 Long term (current) use of oral hypoglycemic drugs; Z79.899 Other long term (current) drug therapy

== ENCOUNTER → 2019-05-06 | Outpatient (CLI) | payer BC, OTHER ==
[~2019-05-06] MED LIST changes: +BUPIVACAINE HCL 0.25% 10 ML VIAL As Ordered ONE; +BUPIVACAINE HCL 0.25% 30 ML VIAL As Ordered ONE; -MECL-68 PO; +MECL1TAB31 PO; +RANI1TAB38 PO; +SENN-53 PO; -SENN1TAB40 PO; +TRIAMCINOLONE ACETONIDE SUSP 40 MG/ML VIAL (J3301) As Ordered ONE
--- NOTE | 2019-05-24 11:29 | ECWPNPC ---
PATIENT NAME: MARQUIS DOUGHERTY : 1965 GENDER: FEMALE VISIT DATE: 05/06/2019 DISCHARGE DATE: 05/06/19 1208 VISIT LOCKED DATE TIME: PHYSICIAN: PEDRO JENKINS MD RESOURCE: PEDRO JENKINS MD REASON FOR APPOINTMENT 1. TPI RIGHT NECK, RIGHT SHOULDER HISTORY OF PRESENT ILLNESS HISTORY OF PRESENT ILLNESS: PAIN THE PATIENT DESCRIBES THE PAIN... FALL RISK SCREENING: SCREENING :NO FALLS REPORTED IN THE LAST YEAR CURRENT MEDICATIONS TAKING BUSPIRONE HCL 7.5 MG TABLET 1 TABLET ORALLY TWICE A DAY, NOTES: 05/04 8PM TAKING ROPINIROLE HCL 2 MG TABLET 1 TABLET 1 TO 3 HOURS BEFORE BEDTIME ORALLY ONCE A DAY, NOTES: 05/04 8PM TAKING METFORMIN HCL 1000 MG TABLET 1 TABLET WITH MEALS ORALLY TWICE A DAY, NOTES: 05/04 7PM TAKING ATORVASTATIN CALCIUM 40 MG TABLET 1 TABLET ORALLY ONCE A DAY, NOTES: 05/04 7PM TAKING VITAMIN D2 _ TABLET 25 MGS 1 TABLETS ORALLY WEEKLY, NOTES: 05/04 7PM TAKING DIVALPROEX SODIUM 500 MG TABLET DELAYED RELEASE 1 TAB ORALLY BID, NOTES: 05/04 7PM TAKING GABAPENTIN 600 MG TABLET 1 CAPSULE ORALLY THREE TIMES DAILY, NOTES: 05/04 7PM TAKING ALEVE 220 MG TABLET 1 TABLET WITH FOOD OR MILK NEEDED ORALLY EVERY 12 HRS, NOTES: 05/04 7PM TAKING LISINOPRIL 20 MG TABLET 1 TABLET ORALLY ONCE A DAY, NOTES: 05/04 7PM TAKING CYMBALTA 60 MG CAPSULE DELAYED RELEASE PARTICLES 1 CAPSULE ORALLY BID, NOTES: 05/04 7PM NOT-TAKING IBUPROFEN 800 MG TABLET 1 TABLET WITH FOOD OR MILK NEEDED ORALLY THREE TIMES A DAY, NOTES: NONE LATELY NOT-TAKING OXYCODONE-ACETAMINOPHEN 5-325 MG TABLET 1 TABLET NEEDED ORALLY EVERY 6 HRS, NOTES: 11/11/18 NOT-TAKING SENNA PLUS 8.6-50 MG TABLET 1 TABLET IN THE EVENING NEEDED ORALLY ONCE A DAY NOT-TAKING SOMA 350 MG TABLET 1 TABLET NEEDED ORALLY FOR SPASMS AND PAIN EVERY 6 HOURS NEEDED MDD2 NOT-TAKING PANTOPRAZOLE SODIUM 40 MG TABLET DELAYED RELEASE 1 TABLET ORALLY ONCE A DAY, NOTES: INPATIENT MEDICATION NOT-TAKING TAMSULOSIN HCL 0.4 MG CAPSULE 1 CAPSULE ORALLY BEFORE BEDTIME, NOTES: INPATIENT MEDICATION NOT-TAKING CYCLOBENZAPRINE HCL 5 MG TABLET 1 TABLET ORALLY EVERY 8 HOURS, NOTES: INPATIENT MEDICATION NOT-TAKING HEPARIN SODIUM (PORCINE) 5000 UNIT/ML SOLUTION 1 ML INJECTION EVERY 12 HRS, NOTES: INPATIENT MEDICATION NOT-TAKING HUMALOG 100 UNIT/ML SOLUTION PER SLIDING SCALE SUBCUTANEOUS ACHS, NOTES: INPATIENT MEDICATION NOT-TAKING LISINOPRIL 10 10 MG TABLET 1 TAB ORAL ONCE DAILY NOT-TAKING DICLOFENAC SODIUM 50 MG TABLET DELAYED RELEASE 1 TABLET WITH FOOD OR MILK ORALLY BID MEDICATION LIST REVIEWED AND RECONCILED WITH THE PATIENT PAST MEDICAL HISTORY HX OF MAGANA'S PALSY VITAMIN D DEFICIENCY - RESOLVED, DR. MAGAÑA VITAMIN B12 DEFICIENCY - RESOLVED. IBS VERTIGO PAIN LOW BACK, LEFT HIP AND LEG DIABETES MELLITUS ALLERGIES N.K.D.A. SURGICAL HISTORY NECK SURGERY TUBAL LIGATION COLONOSCOPY, DR. RESTREPO. WNL. 02/2009 EMB BENIGN TOTAL HYSTERECTOMY 06/2018 FAMILY HISTORY FATHER: 77 YRS, HODGKINS LYMPHOMA, CABG AT 64-65 MOTHER: 77 YRS, BREAST CANCER @ 64, +LYMPH NODES. CHEMO AND RADIATION. DIABETES SIBLINGS: ALIVE DAUGHTER(S): ALIVE 20 YRS, NO KNOWN MEDICAL PROBLEMS PATERNAL UNCLE: , LUNG CANCER (TOBACCO USE) PATERNAL AUNT: , LUNG CANCER (TOBACCO) MATERNAL UNCLE: , DIABETES SISTER: DIABETES. NO BOWEL OR OVARIAN CANCER IN FAMILY. SOCIAL HISTORY GENERAL: TOBACCO USE ARE YOU A:NONSMOKER NEVER SMOKER HIV / HEP-C SCREENING HIV TEST OFFERED TO PATIENT:YES DATE OFFERED:09/12/2017 TEST ACCEPTED:NO HEP-C TEST OFFERED TO PATIENT:YES DATE OFFERED:09/12/2017 REASON:PATIENT DECLINED TEST ACCEPTED:NO REASON:PATIENT DECLINED OTHERS AT HOME: SPOUSE, CHILD. EDUCATION LEVEL OF EDUCATION:HIGH SCHOOL DIET: NEEDS IMPROVEMENT., GLUTEN FREE. LANGUAGE LANGUAGES SPOKEN:[place] DOMESTIC VIOLENCE DO YOU FEEL SAFE IN YOUR ENVIRONMENT?YES BMI CARE GOAL FOLLOW-UP ABOVE NORMAL BMI FOLLOW-UPLIFESTYLE EDUCATION REGARDING DIET RECREATIONAL DRUG USE DENIES. EXERCISE: NO REGULAR EXERCISE. LEARNING BARRIERS / SPECIAL NEEDS CHANGE FROM LAST VISIT?NO BARRIERS TO LEARNING?NO HEARING IMPAIRED?NO VISION IMPAIRED?YES COGNITIVELY IMPAIRED?NO :CORRECTIVE LENSES READINESS TO LEARN?YES LEARNING PREFERENCES?NO LEARNING CAPABILITIES PRESENT?YES EMOTIONAL BARRIERS?NO SPECIAL DEVICES?NO MANAGER ARMY NEEDED?NO PAIN CLINIC PFS, CLERGY, PUBLIC HEALTH REFERRALS PFS REFERRAL NEEDED?NO CLERGY REFERRAL NEEDED?NO PUBLIC HEALTH REFERRAL NEEDED?NO WAS THE PROVIDER NOTIFIED OF ANY PERTINENT INFO?YES HAS THE PATIENT BEEN EDUCATED REGARDING HIS/HER PLAN OF CARE?YES HAS THE PATIENT BEEN EDUCATED REGARDING PAIN, THE RISK FOR PAIN, THE IMPORTANCE OF EFFECTIVE PAIN MANAGEMENT, AND THE PAIN ASSESSMENT PROCESS?YES LATEX QUESTIONNAIRE LATEX ALLERGY : HAVE YOU EVER DEVELOPED ANY TYPE OF REACTION AFTER HANDLING LATEX PRODUCTS SUCH RUBBER GLOVES, CONDOMS, DIAPHRAGMS, BALLOONS, SOCKS, OR UNDERWEAR?NO LATEX ALLERGY : HAVE YOU EVER DEVELOPED ANY TYPE OF REACTION DURING OR AFTER DENTAL APPOINTMENT, VAGINAL/RECTAL EXAMINATION, SURGICAL PROCEDURE, OR ANY OTHER EXPOSURE?NO LATEX RISK : HAVE YOU EVER HAD ANY DIFFICULTY BREATHING OR HIVES AFTER EATING OR HANDLING ANY FRUITS, OR VEGETABLES; SUCH KIWI, BANANAS, STONE FRUITS, OR CHESTNUTSNO LATEX RISK : DO YOU HAVE A PREVIOUS PERSONAL HISTORY OF MORE THAN NINE SURGERIES, SPINA BIFIDA, OR REPEATED CATHERIZATIONS? NO LATEX RISK : ARE YOU FREQUENTLY EXPOSED TO LATEX PRODUCTS IN YOUR OCCUPATION?NO DATE ASKED : 05/06/2019 CAFFEINE 1-2/DAY. ADVANCE DIRECTIVE ADVANCE DIRECTIVE DISCUSSED WITH PATIENT:YES PT DECLINES HCP INFORMATION AT THIS TIME., PT DECLINES ASSISTANCE WITH PAPERWORK FAITH [id number] BAPTISM MARITAL STATUS: . 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 12/11/17 1430 REVIEWED WITH PT. BV12/15/17 1120 REVIEWED WITH PT. 12/31/17 1200 REVIEWED WITH PT. AD02/03/18 1440 REVIEWED WITH PT. AD04/22/18 1447 REVIEWED WITH PT. BVREVIEWED WITH PATIENT 10/19/18 1436 JSREVIEWED WITH PT 07/03/18 1040 LASREVIEWED WITH PATIENT 07/24/18 1042 JS. HOSPITALIZATION/MAJOR DIAGNOSTIC PROCEDURE LOW BACK PAIN, LEFT HIP AND LEG PAIN 11/2017 NUMBNESS LEFT LEG AFTER PROCEDURE 12/15/17 POST-HYSTERECTOMY OVERNIGHT STAY 06/2018 REVIEW OF SYSTEMS REVIEWED BY: PROVIDER: . CONSTITUTIONAL: ANY CHANGE IN YOUR MEDICAL CONDITION? NO . CHILLS NO . FEVER NO . INFECTION: DO YOU HAVE NEW INFECTIONS? NO . DO YOU HAVE HISTORY OF MRSA? NO . MUSCULOSKELETAL: ANY NEW PATTERNS OF PAIN OR NUMBNESS? YES . GASTROENTEROLOGY: ANY NEW CHANGE IN BOWEL CONTROL? NO . GENITOURINARY: ANY NEW CHANGE IN BLADDER CONTROL? NO . IS THERE A CHANCE YOU COULD BE ? NO . HEMATOLOGY/LYMPH: DO YOU TAKE ANY BLOOD THINNERS? (FOR EXAMPLE- COUMADIN, PLAVIX, AGGRENOX, PLATEL, PRADAXA, OR XARELTO) NO . WHEN WAS YOUR LAST DOSE? DATE: TIME: . NEUROLOGY: HAVE YOU FALLEN IN THE PAST 12 MONTHS? NO . ANY NEW EXTREMITY NUMBNESS OR WEAKNESS? NO . CARDIOLOGY: DO YOU HAVE A PACEMAKER OR DEFIBRILLATOR? NO . RESPIRATORY: HAVE YOU BEEN SICK IN THE PAST WEEK? NO . FEVER NO . FLU LIKE SYMPTOMS? NO . COUGH NO . INTEGUMENTARY: DO YOU HAVE ANY RASHES OR OPEN SORES? NO . ALLERGIC/IMMUNO: ARE YOU ALLERGIC TO IV DYE? NO . ANY NEW ALLERGIES? NO . PSYCHIATRIC: DO YOU HAVE THOUGHTS OF HURTING YOURSELF OR SOMEONE ELSE? NO . ARE YOU ABUSED, NEGLECTED, OR IN AN UNSAFE ENVIRONMENT? NO . ENDOCRINOLOGY: ARE YOU DIABETIC? YES, MANAGED WITH MED AND DIET . OTHER: DO YOU NEED ANY PRESCRIPTIONS? NO . IF YES, PLEASE LIST: ____ . ANY NEW PROBLEMS WITH YOUR MEDICATIONS? NO . WHEN DID YOU LAST EAT? 05/05 3PM . WHEN DID YOU LAST DRINK? 05/05 6PM . WHAT DID YOU LAST DRINK? WATER . NAME OF PERSON DRIVING YOU HOME? ROSSY . DO YOU HAVE ANY OTHER QUESTIONS OR CONCERNS NO . VITAL SIGNS WT 192.6 LBS, HT 64.25 IN, BMI 32.80 INDEX, BP 132/82 MM HG, HR 90 /MIN, RR 18 /MIN, TEMP 96.9 F, OXYGEN SAT % 98%, SAFE IN ENV? (Y/N) Y, NA INITIALS AW 1122, REVIEWED BY: DS. ASSESSMENTS MYALGIA, OTHER SITE - M79.18 (PRIMARY) PROCEDURES PN TRIGGER POINT INJECTION WITH STEROIDS PRE PROCEDURE DIAGNOSIS 1. MYALGIA 2. PAIN AT RIGHT NECK AREA AND RIGHT SHOULDER AREA POST PROCEDURE DIAGNOSIS 1. MYALGIA 2. PAIN AT RIGHT NECK AREA AND RIGHT SHOULDER AREA PROCEDURE TRIGGER POINT INJECTION AT RIGHT NECK AREA AND RIGHT SHOULDER AREA SURGEON DR. PEDRO JENKINS DIRECT MARKETING SPECIALIST NONE ANESTHESIA LOCAL PRE PROCEDURE NOTE THE PATIENT HAS A HISTORY OF CHRONIC PAIN AT THE RIGHT NECK AREA AND RIGHT SHOULDER AREA. I EVALUATED THE PATIENT AND REVIEWED THE CHART. THERE IS EVIDENCE OF BANDS OF TISSUE WITH RESTRICTION OF MOVEMENT AND PRESENCE OF TRIGGER POINT AT THE AFFECTED AREA. I WENT OVER THE RISKS, ALTERNATIVES, AND BENEFITS ASSOCIATED WITH THIS PROCEDURE. THE PATIENT WOULD LIKE TO PROCEED AND GIVE CONSENT TO PERFORMED THE PROCEDURE. THE PATIENT DENIES UNEXPLAINABLE WEIGHT LOSS, FEVER, CHILLS, OR NEW CHANGES IN URINARY OR BOWEL CONTROL DESCRIPTION OF PROCEDURE THE PATIENT WAS BROUGHT TO THE PROCEDURE ROOM AND PLACED IN THE SITTING POSITION. THE AREA WAS CLEANED WITH ALCOHOL. THE PROCEDURE WAS DONE USING ASEPTIC STERILE TECHNIQUE. I CHECKED LATERALITY AND THE LEVEL WHERE THE PROCEDURE WAS GOING TO BE PERFORMED WITH THE PATIENT AND THE SUPPORTING STAFF AT THE MOMENT OF THE TIME OUT IN THE PROCEDURE ROOM. USING A 25-GAUGE NEEDLE, TRIGGER POINTS WERE INJECTED AT THE RIGHT NECK AREA AND RIGHT SHOULDER AREA WITH A TOTAL OF 40 ML OF BUPIVACAINE 0.25% AND KENALOG 40 MG. THERE WAS NO EVIDENCE OF BLOOD, PARESTHESIA OR CEREBROSPINAL FLUID DURING THE PROCEDURE. THE PATIENT WAS SENT TO THE RECOVERY ROOM. THE PATIENT WAS MOVING THE EXTREMITIES AND DOING WELL. THERE WAS NO COMPLICATION DURING THE PROCEDURE POST PROCEDURE NOTE THE PATIENT WILL BE SEEN IN A FOLLOW UP IN THE NEXT FEW WEEKS. I MAY CONSIDER ORDERING NECK AND SHOULDER MRI'S IN THE FUTURE AND I WOULD ALSO LIKE TO DISCUSS THE PATIENT'S CASE WITH ORTHOPEDIC GROUP. INSTRUCTIONS WERE GIVEN, QUESTIONS WERE ANSWERED, AND THE PATIENT EXPRESSED UNDERSTANDING AND AGREES WITH THE PLAN. I, SINA MENDOZA, DOCUMENTED THE ABOVE INFORMATION ACTING A SCRIBE FOR DR. JENKINS. I HAVE REVIEWED THE ABOVE DOCUMENT, WRITTEN BY SINA MENDOZA SCRRUTH AND I VERIFY THAT IT IS ACCURATE. PROCEDURE CODES 29797 INJ TRIGGER POINT /2 MUSC DISPOSITION & COMMUNICATION FOLLOW UP 3 WEEKS ELECTRONICALLY SIGNED BY PEDRO JENKINS MD, MD ON 05/13/2019 AT 03:36 PM EDT DISCLAIMER : THIS IS A VISIT SUMMARY EXTRACTED FROM THE [employer] CHART. IT IS NOT A COPY OF THE [employer] PROGRESS NOTE. SHAKILA
== END ==
LOC: M PAIN 11:00
PROVIDERS: ATTEND Anesthesiology
DX: M79.18 Myalgia, other site (principal); E11.9 Type 2 diabetes mellitus without complications; Z79.84 Long term (current) use of oral hypoglycemic drugs; Z79.899 Other long term (current) drug therapy
CPT/HCPCS: 20552; J3301

== ENCOUNTER 2019-05-17 13:24 | Emergency (ER) | payer BC, OTHER ==
[~2019-05-17] VITALS: Ht 165.1 cm; Wt 87.0 kg
[~2019-05-17 13:24] MED LIST changes: -BUPIVACAINE HCL 0.25% 10 ML VIAL As Ordered ONE; -BUPIVACAINE HCL 0.25% 30 ML VIAL As Ordered ONE; +MECL-68 PO; -MECL1TAB31 PO; -RANI1TAB38 PO; -TRIAMCINOLONE ACETONIDE SUSP 40 MG/ML VIAL (J3301) As Ordered ONE
[2019-05-17] MEDS ORDERED: METAL LOCK LOOP XX ONE (16:08)
[2019-05-17 16:12] LABS: BASO # 0.1 10^3/uL (0.0-0.2); BASO % 0.5 % (0.0-1.0); EOS # 0.1 10^3/uL (0.0-0.5); EOS % 0.5 % (0.0-3.0); HEMATOCRIT 49.4 % (36.0-47.0); LYMPH # 3.8 10^3/uL (1.5-5.0); LYMPH % 29.2 % (24.0-44.0); MEAN CORPUSCULAR HGB CONC 32.4 g/dl (32.0-36.5); MEAN CORPUSCULAR VOLUME 95.7 fl (80.0-96.0); MONO # 0.7 10^3/uL (0.0-0.8); MONO % 5.6 % (0.0-5.0); NEUTROPHILS # 8.3 10^3/uL (1.5-8.5); NEUTROPHILS % 63.7 % (36.0-66.0); PLATELET COUNT, AUTOMATED 420 10^3/uL (150-450); RED BLOOD COUNT 5.16 10^6/uL (4.00-5.40)
[2019-05-17 16:40] LABS: ALBUMIN 4.5 GM/DL (3.2-5.2); ALT/SGPT 79 U/L (12-78); BILIRUBIN,DIRECT 0.1 MG/DL (0.0-0.2); BILIRUBIN,TOTAL 0.4 MG/DL (0.2-1.0); BLOOD UREA NITROGEN 15 MG/DL (7-18); CALCIUM LEVEL 10.8 MG/DL (8.5-10.1); CARBON DIOXIDE LEVEL 30 MEQ/L (21-32); CHLORIDE LEVEL 100 MEQ/L (98-107); GLOMERULAR FILTRATION RATE > 60.0 (>51); GLUCOSE, FASTING 138 MG/DL (70-100); LIPASE 201 U/L (73-393); POTASSIUM SERUM 4.5 MEQ/L (3.5-5.1); SODIUM LEVEL 137 MEQ/L (136-145); TOTAL PROTEIN 8.7 GM/DL (6.4-8.2)
[2019-05-17 17:29] LABS: APPEARANCE, URINE HAZY (CLEAR); BACTERIA, URINE AUTO NEGATIVE (NEGATIVE); BILIRUBIN, URINE AUTO NEGATIVE (NEGATIVE); BLOOD, URINE BLOOD NEGATIVE (NEGATIVE); COLOR, URINE YELLOW (YELLOW); GLUCOSE, URINE (UA) AUTO 1+ mg/dL (NEGATIVE); KETONE, URINE AUTO NEGATIVE (NEGATIVE); LEUKOCYTE ESTERASE, URINE AUTO NEGATIVE (NEGATIVE); MUCUS, URINE SMALL (NEGATIVE); NITRITE, URINE AUTO NEGATIVE (NEGATIVE); PROTEIN, URINE AUTO 1+ mg/dL (NEGATIVE); RBC, URINE AUTO 2 /HPF (0-3); SPECIFIC GRAVITY URINE AUTO 1.019 (1.002-1.035); SQUAMOUS EPITHELIAL CELL UR AU 0 /HPF (0-6); UROBILINOGEN, URINE AUTO 0.2 mg/dL (0.0-2.0); WBC, URINE AUTO 5 /HPF (0-3)
[2019-05-17] MEDS ORDERED: RANI1TAB38 PO (18:42)
[2019-05-17 18:50] VITALS: BP 138/89
--- NOTE | 2019-05-17 19:31 | REP ---
KUB: Single view: History: Nausea, vomiting, flank pain. Comparison radiograph of the pelvis is from June 19, 2018. Findings: Bowel gas pattern is normal. Psoas margins and flank stripes are intact. There are phleboliths in the pelvis bilaterally unchanged. No mass, organomegaly, or pathologic calcification is seen. Impression: Negative KUB. Electronically Signed by Baldomero Reyna MD 05/17/2019 08:01 P
== END 2019-05-17 18:55 | disposition home or self-care (01) ==
LOC: M ED 13:24
DX: R11.10 Vomiting, unspecified (principal); T38.3X5A Adverse effect of insulin and oral hypoglycemic [antidiabetic] drugs, initial encounter; K21.9 Gastro-esophageal reflux disease without esophagitis; E11.9 Type 2 diabetes mellitus without complications; I10 Essential (primary) hypertension; Z87.448 Personal history of other diseases of urinary system; Z79.84 Long term (current) use of oral hypoglycemic drugs; Z79.899 Other long term (current) drug therapy

== ENCOUNTER → 2019-09-16 | Outpatient (REF) | payer OTHER ==
[~2019-09-16] MED LIST changes: -MECL-68 PO; +MECL1TAB31 PO; +RANI1TAB38 PO; -ROPI2TAB PO; +ROPI2TAB3 PO
[2019-09-18 14:20] LABS: LDL DIRECT 76 mg/dL (0-99)
== END ==
LOC: M LAB REF 16:33
PROVIDERS: ATTEND Family Medicine
DX: N39.0 Urinary tract infection, site not specified (principal)

== ENCOUNTER → 2019-09-29 | Outpatient (REF) | payer OTHER ==
[2019-09-29 17:55] LABS: MALB URINE SIEMENS 13.1 MG/L; MAU/CREAT RATIO 9.2 MCG/MG (0.0-30.0)
== END ==
LOC: M LAB REF 16:24
PROVIDERS: ATTEND Nurse Practitioner Family
DX: E11.65 Type 2 diabetes mellitus with hyperglycemia (principal)

== ENCOUNTER → 2019-10-08 | Outpatient (CLI) | payer BC, OTHER ==
--- NOTE | 2019-10-12 01:55 | ECWPNPC ---
PATIENT NAME: MARQUIS DOUGHERTY : 1965 GENDER: FEMALE VISIT DATE: 10/08/2019 DISCHARGE DATE: 10/08/19 1126 VISIT LOCKED DATE TIME: PHYSICIAN: AJITH CANO RESOURCE: AJITH CANO REASON FOR APPOINTMENT 1. NECK HISTORY OF PRESENT ILLNESS HISTORY OF PRESENT ILLNESS: PAIN THE PATIENT DESCRIBES THE PAIN... 54-YEAR-OLD FEMALE IN FOR CHRONIC PAIN FOLLOW-UP. SHE RATES HER PAIN CURRENTLY AT AN 8 OUT OF 10 AND DESCRIBES IT ACHING, SORE, TENDER, SHARP, AND STABBING. SHE WOULD LIKE TO DISCUSS REPEAT TRIGGER POINT INJECTIONS FOR HER RIGHT NECK AND RIGHT SHOULDER HER PAIN HAS RETURNED SINCE HER LAST INJECTIONS. FALL RISK SCREENING: SCREENING :NO FALLS REPORTED IN THE LAST YEAR CURRENT MEDICATIONS TAKING BUSPIRONE HCL 7.5 MG TABLET 1 TABLET ORALLY TWICE A DAY TAKING ROPINIROLE HCL 2 MG TABLET 1 TABLET 1 TO 3 HOURS BEFORE BEDTIME ORALLY ONCE A DAY TAKING METFORMIN HCL 1000 MG TABLET 1 TABLET WITH MEALS ORALLY TWICE A DAY TAKING LISINOPRIL 20 MG TABLET 1 TABLET ORALLY ONCE A DAY TAKING CYMBALTA 60 MG CAPSULE DELAYED RELEASE PARTICLES 1 CAPSULE ORALLY BID NOT-TAKING ATORVASTATIN CALCIUM 40 MG TABLET 1 TABLET ORALLY ONCE A DAY NOT-TAKING VITAMIN D2 _ TABLET 25 MGS 1 TABLETS ORALLY WEEKLY NOT-TAKING DIVALPROEX SODIUM 500 MG TABLET DELAYED RELEASE 1 TAB ORALLY BID NOT-TAKING GABAPENTIN 600 MG TABLET 1 CAPSULE ORALLY THREE TIMES DAILY NOT-TAKING ALEVE 220 MG TABLET 1 TABLET WITH FOOD OR MILK NEEDED ORALLY EVERY 12 HRS NOT-TAKING IBUPROFEN 800 MG TABLET 1 TABLET WITH FOOD OR MILK NEEDED ORALLY THREE TIMES A DAY NOT-TAKING OXYCODONE-ACETAMINOPHEN 5-325 MG TABLET 1 TABLET NEEDED ORALLY EVERY 6 HRS NOT-TAKING SENNA PLUS 8.6-50 MG TABLET 1 TABLET IN THE EVENING NEEDED ORALLY ONCE A DAY NOT-TAKING SOMA 350 MG TABLET 1 TABLET NEEDED ORALLY FOR SPASMS AND PAIN EVERY 6 HOURS NEEDED MDD2 NOT-TAKING PANTOPRAZOLE SODIUM 40 MG TABLET DELAYED RELEASE 1 TABLET ORALLY ONCE A DAY NOT-TAKING TAMSULOSIN HCL 0.4 MG CAPSULE 1 CAPSULE ORALLY BEFORE BEDTIME NOT-TAKING CYCLOBENZAPRINE HCL 5 MG TABLET 1 TABLET ORALLY EVERY 8 HOURS NOT-TAKING HEPARIN SODIUM (PORCINE) 5000 UNIT/ML SOLUTION 1 ML INJECTION EVERY 12 HRS NOT-TAKING HUMALOG 100 UNIT/ML SOLUTION PER SLIDING SCALE SUBCUTANEOUS ACHS NOT-TAKING LISINOPRIL 10 10 MG TABLET 1 TAB ORAL ONCE DAILY NOT-TAKING DICLOFENAC SODIUM 50 MG TABLET DELAYED RELEASE 1 TABLET WITH FOOD OR MILK ORALLY BID MEDICATION LIST REVIEWED AND RECONCILED WITH THE PATIENT PAST MEDICAL HISTORY HX OF MAGANA'S PALSY VITAMIN D DEFICIENCY - RESOLVED, DR. MAGAÑA VITAMIN B12 DEFICIENCY - RESOLVED. IBS VERTIGO PAIN LOW BACK, LEFT HIP AND LEG DIABETES MELLITUS ALLERGIES N.K.D.A. SURGICAL HISTORY NECK SURGERY TUBAL LIGATION COLONOSCOPY, DR. RESTREPO. WNL. 02/2009 EMB BENIGN TOTAL HYSTERECTOMY 06/2018 FAMILY HISTORY FATHER: 77 YRS, HODGKINS LYMPHOMA, CABG AT 64-65 MOTHER: 77 YRS, BREAST CANCER @ 64, +LYMPH NODES. CHEMO AND RADIATION. DIABETES SIBLINGS: ALIVE DAUGHTER(S): ALIVE 21 YRS, NO KNOWN MEDICAL PROBLEMS PATERNAL UNCLE: , LUNG CANCER (TOBACCO USE) PATERNAL AUNT: , LUNG CANCER (TOBACCO) MATERNAL UNCLE: , DIABETES SISTER: DIABETES. NO BOWEL OR OVARIAN CANCER IN FAMILY. DENIES FH OF SKIN CA OR MELANOMA. SOCIAL HISTORY GENERAL: TOBACCO USE ARE YOU A:NONSMOKER NEVER SMOKER HIV / HEP-C SCREENING HIV TEST OFFERED TO PATIENT:YES DATE OFFERED:09/12/2017 TEST ACCEPTED:NO HEP-C TEST OFFERED TO PATIENT:YES DATE OFFERED:09/12/2017 REASON:PATIENT DECLINED TEST ACCEPTED:NO REASON:PATIENT DECLINED OTHERS AT HOME: SPOUSE, CHILD. EDUCATION LEVEL OF EDUCATION:HIGH SCHOOL DIET: NEEDS IMPROVEMENT., GLUTEN FREE. LANGUAGE LANGUAGES SPOKEN:KOREAN DOMESTIC VIOLENCE DO YOU FEEL SAFE IN YOUR ENVIRONMENT?YES BMI CARE GOAL FOLLOW-UP ABOVE NORMAL BMI FOLLOW-UPLIFESTYLE EDUCATION REGARDING DIET RECREATIONAL DRUG USE DENIES. EXERCISE: NO REGULAR EXERCISE. LEARNING BARRIERS / SPECIAL NEEDS CHANGE FROM LAST VISIT?NO 08/19/2019 BARRIERS TO LEARNING?NO HEARING IMPAIRED?NO VISION IMPAIRED?YES COGNITIVELY IMPAIRED?NO :CORRECTIVE LENSES READINESS TO LEARN?YES LEARNING PREFERENCES?NO LEARNING CAPABILITIES PRESENT?YES EMOTIONAL BARRIERS?NO SPECIAL DEVICES?NO SUPERVISOR SHIPPING NEEDED?NO PAIN CLINIC PFS, CLERGY, PUBLIC HEALTH REFERRALS PFS REFERRAL NEEDED?NO CLERGY REFERRAL NEEDED?NO PUBLIC HEALTH REFERRAL NEEDED?NO WAS THE PROVIDER NOTIFIED OF ANY PERTINENT INFO?YES HAS THE PATIENT BEEN EDUCATED REGARDING HIS/HER PLAN OF CARE?YES HAS THE PATIENT BEEN EDUCATED REGARDING PAIN, THE RISK FOR PAIN, THE IMPORTANCE OF EFFECTIVE PAIN MANAGEMENT, AND THE PAIN ASSESSMENT PROCESS?YES LATEX QUESTIONNAIRE LATEX ALLERGY : HAVE YOU EVER DEVELOPED ANY TYPE OF REACTION AFTER HANDLING LATEX PRODUCTS SUCH RUBBER GLOVES, CONDOMS, DIAPHRAGMS, BALLOONS, SOCKS, OR UNDERWEAR?NO LATEX ALLERGY : HAVE YOU EVER DEVELOPED ANY TYPE OF REACTION DURING OR AFTER DENTAL APPOINTMENT, VAGINAL/RECTAL EXAMINATION, SURGICAL PROCEDURE, OR ANY OTHER EXPOSURE?NO DATE ASKED : 08/19/2019 LATEX RISK : HAVE YOU EVER HAD ANY DIFFICULTY BREATHING OR HIVES AFTER EATING OR HANDLING ANY FRUITS, OR VEGETABLES; SUCH KIWI, BANANAS, STONE FRUITS, OR CHESTNUTSNO LATEX RISK : DO YOU HAVE A PREVIOUS PERSONAL HISTORY OF MORE THAN NINE SURGERIES, SPINA BIFIDA, OR REPEATED CATHERIZATIONS? NO LATEX RISK : ARE YOU FREQUENTLY EXPOSED TO LATEX PRODUCTS IN YOUR OCCUPATION?NO CAFFEINE 1-2/DAY. ADVANCE DIRECTIVE ADVANCE DIRECTIVE DISCUSSED WITH PATIENT:YES PT DECLINES HCP INFORMATION AT THIS TIME., PT DECLINES ASSISTANCE WITH PAPERWORK ANGLICAN [id number] PROTESTANT MARITAL STATUS: . 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 12/11/17 1430 REVIEWED WITH PT. BV12/15/17 1120 REVIEWED WITH PT. 12/31/17 1200 REVIEWED WITH PT. AD02/03/18 1440 REVIEWED WITH PT. AD04/22/18 1447 REVIEWED WITH PT. BVREVIEWED WITH PATIENT 10/19/18 1436 JSREVIEWED WITH PT 07/03/18 1040 LASREVIEWED WITH PATIENT 07/24/18 1042 JS. HOSPITALIZATION/MAJOR DIAGNOSTIC PROCEDURE LOW BACK PAIN, LEFT HIP AND LEG PAIN 11/2017 NUMBNESS LEFT LEG AFTER PROCEDURE 12/15/17 POST-HYSTERECTOMY OVERNIGHT STAY 06/2018 REVIEW OF SYSTEMS REVIEWED BY: PROVIDER: KANDY HOPPER-C . CONSTITUTIONAL: ANY CHANGE IN YOUR MEDICAL CONDITION? NO . CHILLS NO . FEVER NO . INFECTION: DO YOU HAVE NEW INFECTIONS? NO . DO YOU HAVE HISTORY OF MRSA? NO . MUSCULOSKELETAL: ANY NEW PATTERNS OF PAIN OR NUMBNESS? NO . GASTROENTEROLOGY: ANY NEW CHANGE IN BOWEL CONTROL? NO . GENITOURINARY: ANY NEW CHANGE IN BLADDER CONTROL? NO . IS THERE A CHANCE YOU COULD BE ? NO . HEMATOLOGY/LYMPH: DO YOU TAKE ANY BLOOD THINNERS? (FOR EXAMPLE- COUMADIN, PLAVIX, AGGRENOX, PLATEL, PRADAXA, OR XARELTO) NO . WHEN WAS YOUR LAST DOSE? DATE: TIME: . NEUROLOGY: HAVE YOU FALLEN IN THE PAST 12 MONTHS? NO . ANY NEW EXTREMITY NUMBNESS OR WEAKNESS? NO . CARDIOLOGY: DO YOU HAVE A PACEMAKER OR DEFIBRILLATOR? NO . RESPIRATORY: HAVE YOU BEEN SICK IN THE PAST WEEK? NO . FEVER NO . FLU LIKE SYMPTOMS? NO . COUGH NO . INTEGUMENTARY: DO YOU HAVE ANY RASHES OR OPEN SORES? NO . ALLERGIC/IMMUNO: ARE YOU ALLERGIC TO IV DYE? NO . ANY NEW ALLERGIES? NO . PSYCHIATRIC: DO YOU HAVE THOUGHTS OF HURTING YOURSELF OR SOMEONE ELSE? NO . ARE YOU ABUSED, NEGLECTED, OR IN AN UNSAFE ENVIRONMENT? NO . ENDOCRINOLOGY: ARE YOU DIABETIC? YES . OTHER: DO YOU NEED ANY PRESCRIPTIONS? NO . IF YES, PLEASE LIST: ____ . ANY NEW PROBLEMS WITH YOUR MEDICATIONS? NO . WHEN DID YOU LAST EAT? ____ . WHEN DID YOU LAST DRINK? ____ . WHAT DID YOU LAST DRINK? ____ . NAME OF PERSON DRIVING YOU HOME? ____ . DO YOU HAVE ANY OTHER QUESTIONS OR CONCERNS NO . VITAL SIGNS WT 188 LBS, HT 64.25 IN, BMI 32.02 INDEX, BP 132/83 MM HG, HR 86 /MIN, RR 16 /MIN, TEMP 97.9 F, OXYGEN SAT % 99, SAFE IN ENV? (Y/N) Y, REVIEWED BY: BERTIN. EXAMINATION GENERAL EXAMINATION: GENERALNO ACUTE DISTRESS, WELL NOURISHED AND HYDRATED. PSYCHAPPROPRIATE MOOD AND AFFECT . NECK:POINT TENDER RIGHT NECK AND SHOULDER SURROUNDING SKIN SHOWS NO ERYTHEMA, ECCHYMOSIS, INCREASED WARMTH, AND/OR SKIN ERUPTIONS NOTED. . LUNGS:CLEAR TO AUSCULTATION BILATERALLY, NO WHEEZES, RHONCHI, RALES. HEART:NO MURMURS, REGULAR RATE AND RHYTHM. ASSESSMENTS MYALGIA, OTHER SITE - M79.18 (PRIMARY) TREATMENT MYALGIA, OTHER SITE NOTES: TPI RIGHT NECK AND SHOULDER. CLINICAL NOTES: 54-YEAR-OLD FEMALE IN FOR CHRONIC PAIN FOLLOW-UP. GIVEN PRESENTING SYMPTOMS AND RESULTS OF PHYSICAL EXAMINATION RECOMMENDED TPI OF THE RIGHT NECK AND SHOULDER WITH POSTPROCEDURAL FOLLOW-UP. PATIENT HAS EXPRESSED UNDERSTANDING OF AND WAS IN AGREEMENT WITH TREATMENT PLAN. GIVEN TIME TO ASK QUESTIONS AND EXPRESS CONCERNS. PROCEDURE CODES FA211 ESTABILISHED PATIENT [facility] CHARGE DISPOSITION & COMMUNICATION FOLLOW UP POSTPROCEDURE (REASON: TPI RIGHT NECK AND SHOULDER) ELECTRONICALLY SIGNED BY WARD MAC ON 10/11/2019 AT 08:29 AM EDT DISCLAIMER : THIS IS A VISIT SUMMARY EXTRACTED FROM THE [employer] CHART. IT IS NOT A COPY OF THE [employer] PROGRESS NOTE. SHAKILA
== END ==
LOC: M PAIN 10:15
PROVIDERS: ATTEND Family Medicine
DX: M79.18 Myalgia, other site (principal)

== ENCOUNTER → 2019-10-25 | Outpatient (REF) | payer OTHER, BC ==
[2019-10-25 14:13] LABS: BLOOD UREA NITROGEN 12 MG/DL (7-18); CALCIUM LEVEL 8.9 MG/DL (8.5-10.1); CARBON DIOXIDE LEVEL 29 MEQ/L (21-32); CHLORIDE LEVEL 106 MEQ/L (98-107); GLOMERULAR FILTRATION RATE > 60.0 (>51); GLUCOSE, FASTING 111 MG/DL (70-100); POTASSIUM SERUM 4.2 MEQ/L (3.5-5.1); SODIUM LEVEL 139 MEQ/L (136-145)
== END ==
LOC: M LABDRAW1 11:49
PROVIDERS: ATTEND Nurse Practitioner Family
DX: E11.65 Type 2 diabetes mellitus with hyperglycemia (principal)

== ENCOUNTER → 2019-10-26 | Outpatient (CLI) | payer BC, OTHER ==
[~2019-10-26] MED LIST changes: +BUPIVACAINE HCL 0.25% 30 ML VIAL As Ordered ONE; +TRIAMCINOLONE ACETONIDE SUSP 40 MG/ML VIAL (J3301) As Ordered ONE
--- NOTE | 2019-10-30 00:20 | ECWPNPC ---
PATIENT NAME: MARQUIS DOUGHERTY : 1965 GENDER: FEMALE VISIT DATE: 10/26/2019 DISCHARGE DATE: 10/26/19 1142 VISIT LOCKED DATE TIME: PHYSICIAN: PEDRO JENKINS MD RESOURCE: PEDRO JENKINS MD REASON FOR APPOINTMENT 1. TPI RIGHT NECK AND SHOULDER HISTORY OF PRESENT ILLNESS HISTORY OF PRESENT ILLNESS: PAIN THE PATIENT DESCRIBES THE PAIN... FALL RISK SCREENING: SCREENING :NO FALLS REPORTED IN THE LAST YEAR CURRENT MEDICATIONS TAKING ROPINIROLE HCL 2 MG TABLET 1 TABLET 1 TO 3 HOURS BEFORE BEDTIME ORALLY ONCE A DAY, NOTES: 10/25/19 TAKING METFORMIN HCL 1000 MG TABLET 1 TABLET WITH MEALS SLOW RELEASE ORALLY TWICE A DAY, NOTES: 10/25/19 TAKING LISINOPRIL 20 MG TABLET 1 TABLET ORALLY ONCE A DAY, NOTES: 10/25/19 TAKING FARXIGA 5 MG TABLET 1 TABLET ORALLY ONCE A DAY, NOTES: 10/25/19 TAKING OZEMPIC (0.25 OR 0.5 MG/DOSE) 2 MG/1.5ML SOLUTION PEN-INJECTOR DIRECTED SUBCUTANEOUS , NOTES: FRIDAY TAKING CYMBALTA 60 MG CAPSULE DELAYED RELEASE PARTICLES 1 CAPSULE ORALLY BID, NOTES: NONE LATELY NOT-TAKING BUSPIRONE HCL 7.5 MG TABLET 1 TABLET ORALLY TWICE A DAY NOT-TAKING ATORVASTATIN CALCIUM 40 MG TABLET 1 TABLET ORALLY ONCE A DAY NOT-TAKING VITAMIN D2 _ TABLET 25 MGS 1 TABLETS ORALLY WEEKLY NOT-TAKING DIVALPROEX SODIUM 500 MG TABLET DELAYED RELEASE 1 TAB ORALLY BID NOT-TAKING GABAPENTIN 600 MG TABLET 1 CAPSULE ORALLY THREE TIMES DAILY NOT-TAKING ALEVE 220 MG TABLET 1 TABLET WITH FOOD OR MILK NEEDED ORALLY EVERY 12 HRS NOT-TAKING IBUPROFEN 800 MG TABLET 1 TABLET WITH FOOD OR MILK NEEDED ORALLY THREE TIMES A DAY NOT-TAKING OXYCODONE-ACETAMINOPHEN 5-325 MG TABLET 1 TABLET NEEDED ORALLY EVERY 6 HRS NOT-TAKING SENNA PLUS 8.6-50 MG TABLET 1 TABLET IN THE EVENING NEEDED ORALLY ONCE A DAY NOT-TAKING SOMA 350 MG TABLET 1 TABLET NEEDED ORALLY FOR SPASMS AND PAIN EVERY 6 HOURS NEEDED MDD2 NOT-TAKING PANTOPRAZOLE SODIUM 40 MG TABLET DELAYED RELEASE 1 TABLET ORALLY ONCE A DAY NOT-TAKING TAMSULOSIN HCL 0.4 MG CAPSULE 1 CAPSULE ORALLY BEFORE BEDTIME NOT-TAKING CYCLOBENZAPRINE HCL 5 MG TABLET 1 TABLET ORALLY EVERY 8 HOURS NOT-TAKING HEPARIN SODIUM (PORCINE) 5000 UNIT/ML SOLUTION 1 ML INJECTION EVERY 12 HRS NOT-TAKING HUMALOG 100 UNIT/ML SOLUTION PER SLIDING SCALE SUBCUTANEOUS ACHS NOT-TAKING LISINOPRIL 10 10 MG TABLET 1 TAB ORAL ONCE DAILY NOT-TAKING DICLOFENAC SODIUM 50 MG TABLET DELAYED RELEASE 1 TABLET WITH FOOD OR MILK ORALLY BID MEDICATION LIST REVIEWED AND RECONCILED WITH THE PATIENT PAST MEDICAL HISTORY HX OF MAGANA'S PALSY VITAMIN D DEFICIENCY - RESOLVED, DR. MAGAÑA VITAMIN B12 DEFICIENCY - RESOLVED. IBS VERTIGO PAIN LOW BACK, LEFT HIP AND LEG DIABETES MELLITUS ALLERGIES N.K.D.A. SURGICAL HISTORY NECK SURGERY TUBAL LIGATION COLONOSCOPY, DR. RESTREPO. WNL. 02/2009 EMB BENIGN TOTAL HYSTERECTOMY 06/2018 FAMILY HISTORY FATHER: 77 YRS, HODGKINS LYMPHOMA, CABG AT 64-65 MOTHER: 77 YRS, BREAST CANCER @ 64, +LYMPH NODES. CHEMO AND RADIATION. DIABETES SIBLINGS: ALIVE DAUGHTER(S): ALIVE 21 YRS, NO KNOWN MEDICAL PROBLEMS PATERNAL UNCLE: , LUNG CANCER (TOBACCO USE) PATERNAL AUNT: , LUNG CANCER (TOBACCO) MATERNAL UNCLE: , DIABETES SISTER: DIABETES. NO BOWEL OR OVARIAN CANCER IN FAMILY. DENIES FH OF SKIN CA OR MELANOMA. SOCIAL HISTORY GENERAL: TOBACCO USE ARE YOU A:NONSMOKER NEVER SMOKER HIV / HEP-C SCREENING HIV TEST OFFERED TO PATIENT:YES DATE OFFERED:09/12/2017 TEST ACCEPTED:NO HEP-C TEST OFFERED TO PATIENT:YES DATE OFFERED:09/12/2017 REASON:PATIENT DECLINED TEST ACCEPTED:NO REASON:PATIENT DECLINED OTHERS AT HOME: SPOUSE, CHILD. EDUCATION LEVEL OF EDUCATION:HIGH SCHOOL DIET: NEEDS IMPROVEMENT., GLUTEN FREE. LANGUAGE LANGUAGES SPOKEN:HUNGARIAN DOMESTIC VIOLENCE DO YOU FEEL SAFE IN YOUR ENVIRONMENT?YES NEW PATIENT PAIN DIARY PATIENT DESCRIBES PAIN :STABBING, SORE FROM 0-10, WHAT LEVEL IS YOUR PAIN TODAY?10 PRECIPITATING FACTORS NONE ALLEVIATING FACTORS NO IMPACT ON FUNCTION YES ARE YOU DIABETIC? YES BMI CARE GOAL FOLLOW-UP ABOVE NORMAL BMI FOLLOW-UPLIFESTYLE EDUCATION REGARDING DIET RECREATIONAL DRUG USE DENIES. EXERCISE: NO REGULAR EXERCISE. LEARNING BARRIERS / SPECIAL NEEDS CHANGE FROM LAST VISIT?NO 08/19/2019 BARRIERS TO LEARNING?NO HEARING IMPAIRED?NO VISION IMPAIRED?YES COGNITIVELY IMPAIRED?NO :CORRECTIVE LENSES READINESS TO LEARN?YES LEARNING PREFERENCES?NO LEARNING CAPABILITIES PRESENT?YES EMOTIONAL BARRIERS?NO SPECIAL DEVICES?NO INTRAVENOUS THERAPY NURSE NEEDED?NO PAIN CLINIC PFS, CLERGY, PUBLIC HEALTH REFERRALS PFS REFERRAL NEEDED?NO CLERGY REFERRAL NEEDED?NO PUBLIC HEALTH REFERRAL NEEDED?NO WAS THE PROVIDER NOTIFIED OF ANY PERTINENT INFO?YES HAS THE PATIENT BEEN EDUCATED REGARDING HIS/HER PLAN OF CARE?YES HAS THE PATIENT BEEN EDUCATED REGARDING PAIN, THE RISK FOR PAIN, THE IMPORTANCE OF EFFECTIVE PAIN MANAGEMENT, AND THE PAIN ASSESSMENT PROCESS?YES LATEX QUESTIONNAIRE LATEX ALLERGY : HAVE YOU EVER DEVELOPED ANY TYPE OF REACTION AFTER HANDLING LATEX PRODUCTS SUCH RUBBER GLOVES, CONDOMS, DIAPHRAGMS, BALLOONS, SOCKS, OR UNDERWEAR?NO LATEX ALLERGY : HAVE YOU EVER DEVELOPED ANY TYPE OF REACTION DURING OR AFTER DENTAL APPOINTMENT, VAGINAL/RECTAL EXAMINATION, SURGICAL PROCEDURE, OR ANY OTHER EXPOSURE?NO DATE ASKED : 08/19/2019 LATEX RISK : HAVE YOU EVER HAD ANY DIFFICULTY BREATHING OR HIVES AFTER EATING OR HANDLING ANY FRUITS, OR VEGETABLES; SUCH KIWI, BANANAS, STONE FRUITS, OR CHESTNUTSNO LATEX RISK : DO YOU HAVE A PREVIOUS PERSONAL HISTORY OF MORE THAN NINE SURGERIES, SPINA BIFIDA, OR REPEATED CATHERIZATIONS? NO LATEX RISK : ARE YOU FREQUENTLY EXPOSED TO LATEX PRODUCTS IN YOUR OCCUPATION?NO CAFFEINE 1-2/DAY. ADVANCE DIRECTIVE ADVANCE DIRECTIVE DISCUSSED WITH PATIENT:YES PT DECLINES HCP INFORMATION AT THIS TIME., PT DECLINES ASSISTANCE WITH PAPERWORK ROMAN CATHOLIC [id number] YARSANI MARITAL STATUS: . 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 12/11/17 1430 REVIEWED WITH PT. BV12/15/17 1120 REVIEWED WITH PT. 12/31/17 1200 REVIEWED WITH PT. AD02/03/18 1440 REVIEWED WITH PT. AD04/22/18 1447 REVIEWED WITH PT. BVREVIEWED WITH PATIENT 10/19/18 1436 JSREVIEWED WITH PT 07/03/18 1040 LASREVIEWED WITH PATIENT 07/24/18 1042 JS. HOSPITALIZATION/MAJOR DIAGNOSTIC PROCEDURE LOW BACK PAIN, LEFT HIP AND LEG PAIN 11/2017 NUMBNESS LEFT LEG AFTER PROCEDURE 12/15/17 POST-HYSTERECTOMY OVERNIGHT STAY 06/2018 REVIEW OF SYSTEMS REVIEWED BY: PROVIDER: . CONSTITUTIONAL: ANY CHANGE IN YOUR MEDICAL CONDITION? NO . CHILLS NO . FEVER NO . INFECTION: DO YOU HAVE NEW INFECTIONS? NO . DO YOU HAVE HISTORY OF MRSA? NO . MUSCULOSKELETAL: ANY NEW PATTERNS OF PAIN OR NUMBNESS? NO . GASTROENTEROLOGY: ANY NEW CHANGE IN BOWEL CONTROL? NO . GENITOURINARY: ANY NEW CHANGE IN BLADDER CONTROL? NO . IS THERE A CHANCE YOU COULD BE ? NO . HEMATOLOGY/LYMPH: DO YOU TAKE ANY BLOOD THINNERS? (FOR EXAMPLE- COUMADIN, PLAVIX, AGGRENOX, PLATEL, PRADAXA, OR XARELTO) NO . WHEN WAS YOUR LAST DOSE? DATE: TIME: . NEUROLOGY: HAVE YOU FALLEN IN THE PAST 12 MONTHS? NO . ANY NEW EXTREMITY NUMBNESS OR WEAKNESS? NO . CARDIOLOGY: DO YOU HAVE A PACEMAKER OR DEFIBRILLATOR? NO . RESPIRATORY: HAVE YOU BEEN SICK IN THE PAST WEEK? NO . FEVER NO . FLU LIKE SYMPTOMS? NO . COUGH NO . INTEGUMENTARY: DO YOU HAVE ANY RASHES OR OPEN SORES? NO . ALLERGIC/IMMUNO: ARE YOU ALLERGIC TO IV DYE? NO . ANY NEW ALLERGIES? NO . PSYCHIATRIC: DO YOU HAVE THOUGHTS OF HURTING YOURSELF OR SOMEONE ELSE? NO . ARE YOU ABUSED, NEGLECTED, OR IN AN UNSAFE ENVIRONMENT? NO . ENDOCRINOLOGY: ARE YOU DIABETIC? YES . OTHER: DO YOU NEED ANY PRESCRIPTIONS? YES, DULOXETINE, REQUEST GIVEN TO AJITH Lama/ REMY . IF YES, PLEASE LIST: ____ . ANY NEW PROBLEMS WITH YOUR MEDICATIONS? NO . WHEN DID YOU LAST EAT? 10/25/191929 . WHEN DID YOU LAST DRINK? 10/25/191929 . WHAT DID YOU LAST DRINK? WATER . NAME OF PERSON DRIVING YOU HOME? . DO YOU HAVE ANY OTHER QUESTIONS OR CONCERNS NO . VITAL SIGNS WT 180 LBS, HT 64.25 IN, BMI 30.65 INDEX, BP 114/63 MM HG, HR 81 /MIN, RR 16 /MIN, TEMP 96.0 F, OXYGEN SAT % 100%, SAFE IN ENV? (Y/N) Y, NA INITIALS AW 0941, REVIEWED BY: EM. ASSESSMENTS MYALGIA, OTHER SITE - M79.18 (PRIMARY) PROCEDURES PN TRIGGER POINT INJECTION WITH STEROIDS PRE PROCEDURE DIAGNOSIS 1. MYALGIA 2. PAIN AT RIGHT NECK AREA AND RIGHT SHOULDER AREA. POST PROCEDURE DIAGNOSIS 1. MYALGIA 2. PAIN AT RIGHT NECK AREA AND RIGHT SHOULDER AREA. PROCEDURE TRIGGER POINT INJECTION AT RIGHT NECK AREA AND RIGHT SHOULDER AREA. SURGEON DR. PEDRO JENKINS MUD ANALYSIS WELL LOGGING CAPTAIN NONE ANESTHESIA LOCAL PRE PROCEDURE NOTE THE PATIENT HAS A HISTORY OF CHRONIC PAIN AT THE RIGHT NECK AREA AND RIGHT SHOULDER AREA. I EVALUATED THE PATIENT AND REVIEWED THE CHART. THERE IS EVIDENCE OF BANDS OF TISSUE WITH RESTRICTION OF MOVEMENT AND PRESENCE OF TRIGGER POINT AT THE AFFECTED AREA. I WENT OVER THE RISKS, ALTERNATIVES, AND BENEFITS ASSOCIATED WITH THIS PROCEDURE. THE PATIENT WOULD LIKE TO PROCEED AND GIVE CONSENT TO PERFORMED THE PROCEDURE. THE PATIENT DENIES UNEXPLAINABLE WEIGHT LOSS, FEVER, CHILLS, OR NEW CHANGES IN URINARY OR BOWEL CONTROL DESCRIPTION OF PROCEDURE THE PATIENT WAS BROUGHT TO THE PROCEDURE ROOM AND PLACED IN THE SITTING POSITION. THE AREA WAS CLEANED WITH ALCOHOL. THE PROCEDURE WAS DONE USING ASEPTIC STERILE TECHNIQUE. I CHECKED LATERALITY AND THE LEVEL WHERE THE PROCEDURE WAS GOING TO BE PERFORMED WITH THE PATIENT AND THE SUPPORTING STAFF AT THE MOMENT OF THE TIME OUT IN THE PROCEDURE ROOM. USING A 25-GAUGE NEEDLE, TRIGGER POINTS WERE INJECTED AT THE RIGHT NECK AREA AND RIGHT SHOULDER AREA WITH A TOTAL OF 40 ML OF BUPIVACAINE 0.25% AND KENALOG 40 MG. THERE WAS NO EVIDENCE OF BLOOD, PARESTHESIA OR CEREBROSPINAL FLUID DURING THE PROCEDURE. THE PATIENT WAS SENT TO THE RECOVERY ROOM. THE PATIENT WAS MOVING THE EXTREMITIES AND DOING WELL. THERE WAS NO COMPLICATION DURING THE PROCEDURE POST PROCEDURE NOTE THE PATIENT WILL BE SEEN IN A FOLLOW UP IN THE NEXT FEW WEEKS. INSTRUCTIONS WERE GIVEN, QUESTIONS WERE ANSWERED, AND THE PATIENT EXPRESSED UNDERSTANDING AND AGREES WITH THE PLAN. I, SINA MENDOZA, DOCUMENTED THE ABOVE INFORMATION ACTING A SCRIBE FOR DR. JENKINS. I HAVE REVIEWED THE ABOVE DOCUMENT, WRITTEN BY SINA HOFFMAN AND I VERIFY THAT IT IS ACCURATE. PROCEDURE CODES 98749 INJ TRIGGER POINT 08/05 [facility] [place] [facility] & COMMUNICATION FOLLOW UP 3 WEEKS ELECTRONICALLY SIGNED BY PEDRO JENKINS MD, MD ON 10/29/2019 AT 04:48 PM EDT DISCLAIMER : THIS IS A VISIT SUMMARY EXTRACTED FROM THE [employer] CHART. IT IS NOT A COPY OF THE [employer] PROGRESS NOTE. SHAKILA
== END ==
LOC: M PAIN 09:30
PROVIDERS: ATTEND Anesthesiology
DX: M79.18 Myalgia, other site (principal)
CPT/HCPCS: 20552; J3301

== ENCOUNTER → 2019-11-26 | Outpatient (CLI) | payer BC, OTHER ==
[~2019-11-26] MED LIST changes: -BUPIVACAINE HCL 0.25% 30 ML VIAL As Ordered ONE; -TRIAMCINOLONE ACETONIDE SUSP 40 MG/ML VIAL (J3301) As Ordered ONE
[2019-11-26 14:09] LABS: BASO % 0.5 % (0.0-1.0); EOS # 0.1 10^3/uL (0.0-0.5); EOS % 0.8 % (0.0-3.0); HEMATOCRIT 46.6 % (36.0-47.0); HEMOGLOBIN 15.2 g/dl (12.0-15.5); LYMPH # 2.9 10^3/uL (1.5-5.0); LYMPH % 39.4 % (24.0-44.0); MEAN CORPUSCULAR HEMOGLOBIN 29.8 pg (27.0-33.0); MEAN CORPUSCULAR HGB CONC 32.6 g/dl (32.0-36.5); MEAN CORPUSCULAR VOLUME 91.4 fl (80.0-96.0); MONO # 0.6 10^3/uL (0.0-0.8); NEUTROPHILS # 3.7 10^3/uL (1.5-8.5); NEUTROPHILS % 50.9 % (36.0-66.0); PLATELET COUNT, AUTOMATED 304 10^3/uL (150-450); WHITE BLOOD COUNT 7.3 10^3/uL (4.0-10.0)
[2019-11-26 14:35] LABS: ALT/SGPT 39 U/L (12-78); BILIRUBIN,TOTAL 0.7 MG/DL (0.2-1.0); BLOOD UREA NITROGEN 13 MG/DL (7-18); CALCIUM LEVEL 9.5 MG/DL (8.5-10.1); CARBON DIOXIDE LEVEL 29 MEQ/L (21-32); CHLORIDE LEVEL 103 MEQ/L (98-107); CREATININE FOR GFR 0.78 MG/DL (0.55-1.30); GLOMERULAR FILTRATION RATE > 60.0 (>51); GLUCOSE, FASTING 90 MG/DL (70-100); POTASSIUM SERUM 4.5 MEQ/L (3.5-5.1); SODIUM LEVEL 139 MEQ/L (136-145); TOTAL PROTEIN 7.9 GM/DL (6.4-8.2)
== END ==
LOC: M WUC 11:07
PROVIDERS: ATTEND Nurse Practitioner Family
DX: R10.30 Lower abdominal pain, unspecified (principal)

== ENCOUNTER → 2020-03-13 | Outpatient (REF) ==
[~2020-03-13] MED LIST changes: -METF-791 PO; +METF-838 PO
== END ==
LOC: M EMP 09:30
PROVIDERS: ATTEND Family Medicine
DX: Z20.828 Contact with and (suspected) exposure to other viral communicable diseases (principal)

== ENCOUNTER → 2020-08-03 | Outpatient (CLI) | payer BC ==
[2020-08-03 19:11] LABS: BASO % 0.4 % (0.0-1.0); EOS # 0.1 10^3/uL (0.0-0.5); EOS % 1.6 % (0.0-3.0); HEMOGLOBIN 14.1 g/dl (12.0-15.5); LYMPH # 3.5 10^3/uL (1.5-5.0); LYMPH % 51.2 % (24.0-44.0); MEAN CORPUSCULAR HEMOGLOBIN 28.7 pg (27.0-33.0); MEAN CORPUSCULAR HGB CONC 30.7 g/dl (32.0-36.5); MEAN CORPUSCULAR VOLUME 93.7 fl (80.0-96.0); MONO # 0.5 10^3/uL (0.0-0.8); MONO % 7.4 % (0.0-5.0); NEUTROPHILS # 2.7 10^3/uL (1.5-8.5); NEUTROPHILS % 39.1 % (36.0-66.0); PLATELET COUNT, AUTOMATED 292 10^3/uL (150-450); RED BLOOD COUNT 4.91 10^6/uL (4.00-5.40); WHITE BLOOD COUNT 6.9 10^3/uL (4.0-10.0)
[2020-08-03 20:05] LABS: ALBUMIN 4.1 GM/DL (3.2-5.2); ALT/SGPT 64 U/L (12-78); BILIRUBIN,TOTAL 0.3 MG/DL (0.2-1.0); BLOOD UREA NITROGEN 10 MG/DL (7-18); CALCIUM LEVEL 9.1 MG/DL (8.5-10.1); CARBON DIOXIDE LEVEL 31 MEQ/L (21-32); CHLORIDE LEVEL 106 MEQ/L (98-107); CREATININE FOR GFR 0.76 MG/DL (0.55-1.30); FERRITIN 84 NG/ML (8-252); FOLATE 21.5 NG/ML (>5.4); FREE T4 0.86 NG/DL (0.76-1.46); GLOMERULAR FILTRATION RATE > 60.0 (>51); GLUCOSE, FASTING 119 MG/DL (70-100); IRON (FE) 66 UG/DL (50-170); PERCENT SATURATION 16.8 % (13.2-45.0); RHEUMATOID FACTOR QUANT < 10.0 IU/ML (<15.0); SODIUM LEVEL 141 MEQ/L (136-145); TOTAL IRON BINDING CAPACITY 392 UG/DL (250-450); TOTAL PROTEIN 7.8 GM/DL (6.4-8.2); VITAMIN B12 LEVEL 409 PG/ML (247-911)
[2020-08-07 14:07] LABS: ANTINUCLEAR ANTIBODIES DIRECT Negative (Negative); EBV VIRAL CAPSID AG IgM <36.0 U/mL (0.0-35.9); Lyme Disease IgG/IgM Antibodie <0.91 ISR (0.00-0.90); Lyme Disease IgM Ab Quantitati <0.80 index (0.00-0.79)
== END ==
LOC: M LAB 18:35
PROVIDERS: ATTEND Physician Assistant
DX: M79.10 Myalgia, unspecified site (principal)

== ENCOUNTER → 2021-03-16 | Outpatient (CLI) | payer BC ==
[~2021-03-16] MED LIST changes: +GABA-282 PO; -GABA-843 PO; -LISI-538 PO; +LISI10TA22 PO; -LISI10TA4 PO; +LISI20TA33 PO
== END ==
LOC: M PAIN 08:30
PROVIDERS: ATTEND Anesthesiology
DX: M25.551 Pain in right hip (principal); G89.29 Other chronic pain; E11.9 Type 2 diabetes mellitus without complications; Z79.84 Long term (current) use of oral hypoglycemic drugs; Z79.899 Other long term (current) drug therapy

== ENCOUNTER → 2021-04-02 | Outpatient (CLI) | payer BC ==
--- NOTE | 2021-04-02 18:46 | REP ---
INDICATION: RT HIP HOWARD injury November 2019 in February 2020, pain COMPARISON: 06/20/2018. TECHNIQUE: Coronal T1, STIR through the pelvis, axial, coronal, sagittal T2 fat sat right hip. FINDINGS: The visualized osseous structures demonstrate normal bone marrow signal. There is no bone marrow edema or occult fracture. There is no evidence of avascular necrosis. There is a stable heterogeneous bone lesion in the intertrochanteric region of the proximal right femur measuring 2.5 cm in diameter and most consistent with an enchondroma. Labrum demonstrates no evidence of a tear. There is no paralabral cyst. There is no joint effusion. There appears to be a partial tear of the gluteus minimus muscle and tendon at its insertion onto the right femur. No other abnormal surrounding soft tissue signal is seen. The visualized intrapelvic structures are unremarkable. There is a mildly enlarged right inguinal lymph node 1.3 cm in short axis dimension. IMPRESSION: Stable enchondroma proximal right femur. Partial tear of the right gluteus minimus muscle and tendon at its insertion onto the proximal right femur. Mildly enlarged right inguinal lymph node 1.3 cm in short axis dimension. <Electronically signed by Allen Diallo > 04/02/21 2019
== END ==
LOC: M RAD 16:23
PROVIDERS: ATTEND Anesthesiology
DX: M62.89 Other specified disorders of muscle (principal)

== ENCOUNTER → 2021-05-25 | Outpatient (CLI) | payer BC | LOC: M PAIN 14:45 | PROVIDERS: ATTEND Anesthesiology | DX: M79.18 Myalgia, other site (principal); M47.812 Spondylosis without myelopathy or radiculopathy, cervical region; M54.50 Low back pain, unspecified; S76.011A Strain of muscle, fascia and tendon of right hip, initial encounter; K58.9 Irritable bowel syndrome, unspecified; E11.9 Type 2 diabetes mellitus without complications; Z79.84 Long term (current) use of oral hypoglycemic drugs; Z79.899 Other long term (current) drug therapy ==

== ENCOUNTER → 2021-07-12 | Outpatient (CLI) | payer BC | LOC: M LABSMTC 09:05 | PROVIDERS: ATTEND Anesthesiology | DX: Z11.52 Encounter for screening for COVID-19 (principal) ==

== ENCOUNTER → 2021-07-17 | Outpatient (CLI) | payer BC ==
[~2021-07-17] MED LIST changes: +BUPIVACAINE HCL 0.25% 10ML VIAL As Ordered ONE; +BUPIVACAINE HCL 0.25% 30ML VIAL As Ordered ONE; +TRIAMCINOLONE ACETONIDE SUSP 40 MG/ML VIAL (J3301) As Ordered ONE
== END ==
LOC: M PAIN 08:30
PROVIDERS: ATTEND Anesthesiology
DX: M79.18 Myalgia, other site (principal); E11.9 Type 2 diabetes mellitus without complications; G47.30 Sleep apnea, unspecified; Z79.84 Long term (current) use of oral hypoglycemic drugs; Z79.899 Other long term (current) drug therapy
CPT/HCPCS: 20552; J3301

== ENCOUNTER → 2021-08-15 | Outpatient (CLI) | payer BC ==
[~2021-08-15] MED LIST changes: -BUPIVACAINE HCL 0.25% 10ML VIAL As Ordered ONE; -BUPIVACAINE HCL 0.25% 30ML VIAL As Ordered ONE; -TRIAMCINOLONE ACETONIDE SUSP 40 MG/ML VIAL (J3301) As Ordered ONE
== END ==
LOC: M RAD 17:15
PROVIDERS: ATTEND Anesthesiology
DX: M47.812 Spondylosis without myelopathy or radiculopathy, cervical region (principal)

== ENCOUNTER → 2021-08-30 | Outpatient (CLI) | payer BC ==
[~2021-08-30] MED LIST changes: +BARIUM SULFATE 700 MG TABLET (E-Z-DISK) As Ordered ONE; +E-Z-PAQUE 96% w/w SUSP 176GM BTL As Ordered ONE; +VARIBAR NECTAR 40% w/v 240ML SUSP BTL As Ordered ONE; +VARIBAR PUDDING 40% w/v 230ML TUBE As Ordered ONE
== END ==
LOC: M RAD 12:49
PROVIDERS: ATTEND Family Medicine
DX: R13.10 Dysphagia, unspecified (principal)

== ENCOUNTER → 2021-09-19 | Outpatient (CLI) | payer BC ==
[~2021-09-19] MED LIST changes: -BARIUM SULFATE 700 MG TABLET (E-Z-DISK) As Ordered ONE; -E-Z-PAQUE 96% w/w SUSP 176GM BTL As Ordered ONE; -VARIBAR NECTAR 40% w/v 240ML SUSP BTL As Ordered ONE; -VARIBAR PUDDING 40% w/v 230ML TUBE As Ordered ONE
[2021-09-19 20:00] LABS: BLOOD UREA NITROGEN 7 MG/DL (7-18); GLOMERULAR FILTRATION RATE > 60.0 (>51)
== END ==
LOC: M LAB 16:47
PROVIDERS: ATTEND Anesthesiology
DX: M47.812 Spondylosis without myelopathy or radiculopathy, cervical region (principal)

== ENCOUNTER → 2021-09-25 | Outpatient (CLI) | payer BC ==
[~2021-09-25] MED LIST changes: +PROHANCE 279.3MG/ML 15ML VIAL As Ordered ONE
== END ==
LOC: M RAD 16:04
PROVIDERS: ATTEND Anesthesiology
DX: M47.812 Spondylosis without myelopathy or radiculopathy, cervical region (principal)

== ENCOUNTER → 2021-10-10 | Outpatient (CLI) | payer BC ==
[~2021-10-10] MED LIST changes: -PROHANCE 279.3MG/ML 15ML VIAL As Ordered ONE
== END ==
LOC: M PAIN 14:45
PROVIDERS: ATTEND Anesthesiology
DX: M79.10 Myalgia, unspecified site (principal); M79.18 Myalgia, other site; M47.812 Spondylosis without myelopathy or radiculopathy, cervical region; M50.10 Cervical disc disorder with radiculopathy, unspecified cervical region; K58.9 Irritable bowel syndrome, unspecified; R42 Dizziness and giddiness; E11.9 Type 2 diabetes mellitus without complications; Z79.4 Long term (current) use of insulin; Z79.891 Long term (current) use of opiate analgesic; Z79.899 Other long term (current) drug therapy

== ENCOUNTER → 2022-03-08 | Outpatient (CLI) | payer OTHER | LOC: M WUC 13:03 | PROVIDERS: ATTEND Family Medicine | DX: R93.6 Abnormal findings on diagnostic imaging of limbs (principal); M16.11 Unilateral primary osteoarthritis, right hip ==

== ENCOUNTER 2022-03-15 19:54 | Emergency (ER) | payer OTHER ==
[~2022-03-15] VITALS: Ht 165.1 cm; Wt 86.4 kg
[2022-03-15 19:54] VITALS: BP 145/80
== END 2022-03-15 23:55 | disposition left against medical advice (07) ==
LOC: M ED 19:54
DX: Z53.21 Procedure and treatment not carried out due to patient leaving prior to being seen by health care provider (principal)

== ENCOUNTER → 2022-05-23 | Outpatient (CLI) | payer OTHER | LOC: M WHC 07:35 | PROVIDERS: ATTEND Family Medicine | DX: R74.01 Elevation of levels of liver transaminase levels (principal) ==

== ENCOUNTER 2022-06-06 12:18 | Emergency (ER) | payer OTHER ==
[~2022-06-06] VITALS: Ht 165.1 cm; Wt 83.2 kg
[2022-06-06 15:06] LABS: BASO # 0.1 10^3/uL (0.0-0.2); BASO % 0.6 % (0.0-1.0); EOS # 0.1 10^3/uL (0.0-0.5); EOS % 1.7 % (0.0-3.0); HEMATOCRIT 42.6 % (36.0-47.0); HEMOGLOBIN 13.3 g/dl (12.0-15.5); LYMPH # 3.2 10^3/uL (1.5-5.0); LYMPH % 39.6 % (24.0-44.0); MEAN CORPUSCULAR HGB CONC 31.2 g/dl (32.0-36.5); MEAN CORPUSCULAR VOLUME 92.8 fl (80.0-96.0); MONO # 0.6 10^3/uL (0.0-0.8); MONO % 6.8 % (2.0-8.0); NEUTROPHILS # 4.1 10^3/uL (1.5-8.5); NEUTROPHILS % 50.8 % (36.0-66.0); PLATELET COUNT, AUTOMATED 337 10^3/uL (150-450); RED BLOOD COUNT 4.59 10^6/uL (4.00-5.40); WHITE BLOOD COUNT 8.1 10^3/uL (4.0-10.0)
[2022-06-06 15:44] LABS: RSV AMPLIFICATION NEGATIVE (NEGATIVE)
[2022-06-06 15:52] LABS: CK-MB VALUE MASS < 1.0 NG/ML (<3.6); CPK CREATINE PHOSPHOKINASE 44 U/L (26-192); MB/CK RELATIVE INDEX 2.27 (< OR =4)
[2022-06-06 16:10] LABS: ALBUMIN 3.6 GM/DL (3.2-5.2); ALT/SGPT 41 U/L (12-78); BILIRUBIN,DIRECT 0.1 MG/DL (0.0-0.2); BILIRUBIN,TOTAL 0.3 MG/DL (0.2-1.0); BLOOD UREA NITROGEN 9 MG/DL (7-18); CALCIUM LEVEL 9.7 MG/DL (8.5-10.1); CARBON DIOXIDE LEVEL 28 MEQ/L (21-32); CHLORIDE LEVEL 107 MEQ/L (98-107); CREATININE FOR GFR 0.71 MG/DL (0.55-1.30); FREE T4 0.96 NG/DL (0.76-1.46); GLOMERULAR FILTRATION RATE > 60.0 (>51); GLUCOSE, FASTING 136 MG/DL (70-100); LIPASE 204 U/L (73-393); NT-PRO BNP 15 PG/ML (<125); POTASSIUM SERUM 3.9 MEQ/L (3.5-5.1); SODIUM LEVEL 140 MEQ/L (136-145); TOTAL PROTEIN 7.7 GM/DL (6.4-8.2)
[2022-06-06] MEDS ORDERED: ISOVUE-370 76% 100ML VIAL As Ordered ONE (16:39)
[2022-06-06] MEDS ORDERED: KETOROLAC 30 MG/ML 1ML VIAL IV ONE (18:30)
[2022-06-06] MEDS ORDERED: LevoFLOXacin 750 MG TABLET PO ONE (19:35)
[2022-06-06] MEDS ORDERED: ACETAMINOPHEN 500 MG TAB PO ONE (19:35)
[2022-06-06] MEDS ORDERED: LEVO1TAB40 PO (19:36)
[2022-06-06] MEDS ORDERED: ONDA4TAB6 PO (19:36)
[2022-06-06 19:56] VITALS: BP 141/79
== END 2022-06-06 20:07 | disposition home or self-care (01) ==
LOC: M ED 12:18
DX: J18.9 Pneumonia, unspecified organism (principal); E11.9 Type 2 diabetes mellitus without complications; I10 Essential (primary) hypertension; E78.5 Hyperlipidemia, unspecified; M54.30 Sciatica, unspecified side; F32.A Depression, unspecified; Z90.710 Acquired absence of both cervix and uterus; Z79.899 Other long term (current) drug therapy
CPT/HCPCS: 71046; 71275; 80048; 80076; 82550; 82553; 83690; 83880; 84439; 84443; 85025; 87631; 93005; 96374; 99284; J1885

== ENCOUNTER → 2022-06-13 | Outpatient (CLI) | payer OTHER ==
[~2022-06-13] MED LIST changes: +LEVO1TAB40 PO; +ONDA4TAB6 PO
== END ==
LOC: M LABSMTC 10:31
PROVIDERS: ATTEND Anesthesiology
DX: Z01.812 Encounter for preprocedural laboratory examination (principal); Z11.52 Encounter for screening for COVID-19

== ENCOUNTER → 2022-06-18 | Outpatient (CLI) | payer OTHER ==
[~2022-06-18] MED LIST changes: +BUPIVACAINE HCL 0.25% 10ML VIAL As Ordered ONE; +BUPIVACAINE HCL 0.25% 30ML VIAL As Ordered ONE; +TRIAMCINOLONE ACETONIDE SUSP 40 MG/ML VIAL (J3301) As Ordered ONE
== END ==
LOC: M PAIN 15:00
PROVIDERS: ATTEND Anesthesiology
DX: M79.12 Myalgia of auxiliary muscles, head and neck (principal); K58.9 Irritable bowel syndrome, unspecified; E11.9 Type 2 diabetes mellitus without complications; M54.50 Low back pain, unspecified; M25.552 Pain in left hip; M79.662 Pain in left lower leg; Z79.84 Long term (current) use of oral hypoglycemic drugs; Z79.899 Other long term (current) drug therapy
CPT/HCPCS: 20552; J3301

== ENCOUNTER → 2022-07-03 | Outpatient (CLI) | payer OTHER ==
[~2022-07-03] MED LIST changes: -BUPIVACAINE HCL 0.25% 10ML VIAL As Ordered ONE; -BUPIVACAINE HCL 0.25% 30ML VIAL As Ordered ONE; -TRIAMCINOLONE ACETONIDE SUSP 40 MG/ML VIAL (J3301) As Ordered ONE
== END ==
LOC: M PAIN 16:30
PROVIDERS: ATTEND Anesthesiology
DX: G89.29 Other chronic pain (principal); M79.10 Myalgia, unspecified site; M79.18 Myalgia, other site; K58.9 Irritable bowel syndrome, unspecified; R42 Dizziness and giddiness; M54.50 Low back pain, unspecified; M25.552 Pain in left hip; M79.662 Pain in left lower leg; E11.9 Type 2 diabetes mellitus without complications; M54.2 Cervicalgia; Z79.84 Long term (current) use of oral hypoglycemic drugs; Z79.899 Other long term (current) drug therapy

== ENCOUNTER → 2022-07-23 | Outpatient (CLI) | payer OTHER | LOC: M PAIN 09:15 | PROVIDERS: ATTEND Anesthesiology | DX: M54.2 Cervicalgia (principal); M79.18 Myalgia, other site; E11.9 Type 2 diabetes mellitus without complications; Z79.84 Long term (current) use of oral hypoglycemic drugs; Z79.899 Other long term (current) drug therapy ==

== ENCOUNTER → 2022-09-04 | Outpatient (REF) | payer OTHER | LOC: M LAB REF 13:18 | PROVIDERS: ATTEND Family Medicine | DX: R74.8 Abnormal levels of other serum enzymes (principal) ==

== ENCOUNTER 2022-10-01 19:55 | Emergency (ER) | payer OTHER ==
[~2022-10-01] VITALS: Ht 165.1 cm; Wt 80.9 kg
[2022-10-02 00:34] LABS: BASO # 0.1 10^3/uL (0.0-0.2); BASO % 0.5 % (0.0-1.0); EOS # 0.1 10^3/uL (0.0-0.5); EOS % 1.5 % (0.0-3.0); HEMATOCRIT 41.1 % (36.0-47.0); LYMPH # 3.5 10^3/uL (1.5-5.0); LYMPH % 36.2 % (24.0-44.0); MEAN CORPUSCULAR HGB CONC 31.6 g/dl (32.0-36.5); MEAN CORPUSCULAR VOLUME 91.5 fl (80.0-96.0); MONO # 0.6 10^3/uL (0.0-0.8); MONO % 6.7 % (2.0-8.0); NEUTROPHILS # 5.2 10^3/uL (1.5-8.5); NEUTROPHILS % 54.7 % (36.0-66.0); PLATELET COUNT, AUTOMATED 287 10^3/uL (150-450); RED BLOOD COUNT 4.49 10^6/uL (4.00-5.40); WHITE BLOOD COUNT 9.5 10^3/uL (4.0-10.0)
[2022-10-02 01:21] LABS: ALBUMIN 3.9 G/DL (3.2-5.2); ALKALINE PHOSPHATASE 107 U/L (46-116); ALT/SGPT 32 U/L (7.0-40); AST/SGOT 54 U/L (<34); BILIRUBIN,DIRECT < 0.1 MG/DL (<0.4); BILIRUBIN,TOTAL 0.3 MG/DL (0.3-1.2); BLOOD UREA NITROGEN 9 MG/DL (9-23); CALCIUM LEVEL 9.5 MG/DL (8.5-10.1); CARBON DIOXIDE LEVEL 25 MMOL/L (20-31); CHLORIDE LEVEL 108 MMOL/L (98-107); CK-MB VALUE MASS < 1.0 NG/ML (<3.6); CPK CREATINE PHOSPHOKINASE 103 U/L (34-145); CREATININE FOR GFR 0.64 MG/DL (0.55-1.30); GLOMERULAR FILTRATION RATE > 60.0 (>51); GLUCOSE, FASTING 105 MG/DL (60-100); MB/CK RELATIVE INDEX 0.97 (< OR =4); POTASSIUM SERUM 5.2 MMOL/L (3.5-5.1); SODIUM LEVEL 140 MMOL/L (136-145); TOTAL PROTEIN 7.4 G/DL (5.7-8.2)
[2022-10-02] MEDS ORDERED: NS 1,000 ML IV ONE (01:25)
[2022-10-02] MEDS ORDERED: KETOROLAC 30 MG/ML 1ML VIAL IV ONE (01:25)
[2022-10-02] MEDS ORDERED: ISOVUE-370 76% 100ML VIAL As Ordered ONE (01:31)
[2022-10-02 02:18] LABS: CK-MB VALUE MASS < 1.0 NG/ML (<3.6)
[2022-10-02 02:19] LABS: CPK CREATINE PHOSPHOKINASE 59 U/L (34-145); MB/CK RELATIVE INDEX 1.69 (< OR =4)
[2022-10-02 04:00] VITALS: BP 155/76
[2022-10-02] MEDS ORDERED: NAPR-837 PO (04:01)
== END 2022-10-02 04:13 | disposition home or self-care (01) ==
LOC: M ED 19:55
DX: R07.9 Chest pain, unspecified (principal); H43.392 Other vitreous opacities, left eye; E11.9 Type 2 diabetes mellitus without complications; I10 Essential (primary) hypertension; E78.5 Hyperlipidemia, unspecified; F41.9 Anxiety disorder, unspecified; G25.81 Restless legs syndrome; Z79.84 Long term (current) use of oral hypoglycemic drugs; Z79.899 Other long term (current) drug therapy
CPT/HCPCS: 71275; 80048; 80076; 82550; 82553; 83880; 85025; 93005; 96361; 96374; 99284; J1885

== ENCOUNTER 2022-10-30 18:53 | Emergency (ER) | payer OTHER ==
[~2022-10-30] VITALS: Ht 165.1 cm; Wt 80.8 kg
[~2022-10-30 18:53] MED LIST changes: +NAPR-837 PO
[2022-10-30] MEDS ORDERED: ONDANSETRON 4MG 2ML VIAL IV ONE (20:10)
[2022-10-30] MEDS ORDERED: MORPHINE 4 MG/ML 1ML VIAL IV ONE ×2 (20:10→23:05)
[2022-10-30] MEDS ORDERED: ISOVUE-370 76% 100ML VIAL As Ordered ONE (20:45)
[2022-10-30] MEDS ORDERED: NS 1,000 ML IV ONE (20:45)
[2022-10-30 20:46] LABS: BASO % 0.3 % (0.0-1.0); EOS # 0.1 10^3/uL (0.0-0.5); EOS % 1.8 % (0.0-3.0); HEMATOCRIT 41.5 % (36.0-47.0); HEMOGLOBIN 13.5 g/dl (12.0-15.5); LYMPH # 3.1 10^3/uL (1.5-5.0); MEAN CORPUSCULAR HEMOGLOBIN 29.3 pg (27.0-33.0); MEAN CORPUSCULAR HGB CONC 32.5 g/dl (32.0-36.5); MEAN CORPUSCULAR VOLUME 90.2 fl (80.0-96.0); MONO # 0.4 10^3/uL (0.0-0.8); MONO % 5.6 % (2.0-8.0); NEUTROPHILS # 3.1 10^3/uL (1.5-8.5); PLATELET COUNT, AUTOMATED 303 10^3/uL (150-450); WHITE BLOOD COUNT 6.7 10^3/uL (4.0-10.0)
[2022-10-30 21:01] LABS: INR 0.91; PROTHROMBIN TIME 12.5 SECONDS (12.5-14.5)
[2022-10-30 21:04] LABS: D-DIMER QUANT 453.26 ng/ml (<500)
[2022-10-30 21:16] LABS: CK-MB VALUE MASS < 1.0 NG/ML (<3.6)
[2022-10-30 21:17] LABS: CPK CREATINE PHOSPHOKINASE 57 U/L (34-145); MB/CK RELATIVE INDEX 1.75 (< OR =4)
[2022-10-30 21:19] LABS: THYROID STIMULATING HORMONE 2.174 uIU/ML (0.55-4.78)
[2022-10-30 21:20] LABS: FREE T4 0.95 NG/DL (0.89-1.76)
[2022-10-30 21:26] LABS: RSV AMPLIFICATION NEGATIVE (NEGATIVE)
[2022-10-30 22:33] LABS: MAGNESIUM LEVEL 1.8 MG/DL (1.8-2.4)
[2022-10-30] MEDS ORDERED: TOPIRAMATE (TopAMAX) 25 MG TAB PO ONE (23:05)
[2022-10-30] MEDS ORDERED: MECLIZINE 25 MG TABLET PO ONE (23:05)
[2022-10-31] MEDS ORDERED: MECL1TAB31 PO (00:23)
[2022-10-31] MEDS ORDERED: TOPI25CA5 PO (00:23)
[2022-10-31 00:38] VITALS: BP 150/88
== END 2022-10-31 00:40 | disposition home or self-care (01) ==
LOC: M ED 18:53
DX: R42 Dizziness and giddiness (principal); M54.9 Dorsalgia, unspecified; H54.7 Unspecified visual loss; I65.21 Occlusion and stenosis of right carotid artery; R91.1 Solitary pulmonary nodule; R11.2 Nausea with vomiting, unspecified; R00.2 Palpitations; R19.7 Diarrhea, unspecified; E11.9 Type 2 diabetes mellitus without complications; E78.5 Hyperlipidemia, unspecified; I10 Essential (primary) hypertension; G25.81 Restless legs syndrome; G47.33 Obstructive sleep apnea (adult) (pediatric); F32.A Depression, unspecified; Z98.51 Tubal ligation status; Z90.710 Acquired absence of both cervix and uterus; Z79.899 Other long term (current) drug therapy
CPT/HCPCS: 70450; 70496; 70498; 71046; 80047; 81001; 82550; 82553; 83605; 83735; 84439; 84443; 85025; 85379; 85610; 85730; 87631; 93005; 96361; 96374; 96375; 96376; 99284; J2405; Q9967

== ENCOUNTER → 2023-03-18 | Outpatient (REF) | payer OTHER ==
[~2023-03-18] MED LIST changes: +ERGO500029 PO; +GABA-284 PO; +PANT40TA29 PO; -ROPI2TAB3 PO; +ROPI2TAB46 PO; +SEMA1PEN2 SC; +TOPI25CA5 PO
[2023-03-20 08:11] LABS: LDL DIRECT 129 mg/dL (0-99)
== END ==
LOC: M LAB REF 11:42
PROVIDERS: ATTEND Internal Medicine
DX: E78.00 Pure hypercholesterolemia, unspecified (principal)

== ENCOUNTER 2023-03-25 06:01 | Day surgery (SDC) | payer OTHER ==
[~2023-03-25] VITALS: Ht 165.1 cm; Wt 84.6 kg
[~2023-03-25 06:01] MED LIST changes: +CYCLOPENTOLATE 1% OPHTH SOLN 2ML BTL OS SCH; +OFLOXACIN 0.3 % (OCUFLOX) OPTH SOL 5ML OS SCH; +PHENYLEPHRINE 2.5% OPHTH SOL 2ML OS SCH; +PROPARACAINE 0.5% OPHTH SOL 15ML OS ONE; +TROPICAMIDE 1% OPHTH SOLN 15ML OS SCH
[2023-03-25] MEDS ORDERED: LIDOCAINE 1% SDV 5ML VIAL As Ordered ONE (06:55)
[2023-03-25] MEDS ORDERED: BSS IRR 500ML/OMIDRIA 4ML IRR BAG (OR ONLY) As Ordered ONE (06:56)
[2023-03-25] MEDS ORDERED: CEFUROXIME 1MG/0.1ML INTRACAMERAL INJ As Ordered ONE (06:56)
[2023-03-25] MEDS ORDERED: MIDAZOLAM INJ 2MG/2ML VIAL As Ordered ONE (10:26)
[2023-03-25 11:10] VITALS: BP 134/80; TEMP 97.8; O2SAT 96
== END 2023-03-25 11:10 | disposition home or self-care (01) ==
LOC: M SDC 06:01
PROVIDERS: ATTEND Ophthalmology
DX: H25.12 Age-related nuclear cataract, left eye (principal); I10 Essential (primary) hypertension; E78.5 Hyperlipidemia, unspecified; E11.9 Type 2 diabetes mellitus without complications; F32.A Depression, unspecified; H81.4 Vertigo of central origin; R06.83 Snoring; Z79.899 Other long term (current) drug therapy
CPT/HCPCS: 66984; J0697; J1097; J2250

== ENCOUNTER → 2023-09-25 | Outpatient (CLI) | payer OTHER ==
[~2023-09-25] MED LIST changes: -CYCLOPENTOLATE 1% OPHTH SOLN 2ML BTL OS SCH; +MECL-209 PO; -MECL1TAB31 PO; -OFLOXACIN 0.3 % (OCUFLOX) OPTH SOL 5ML OS SCH; -PHENYLEPHRINE 2.5% OPHTH SOL 2ML OS SCH; -PROPARACAINE 0.5% OPHTH SOL 15ML OS ONE; -TROPICAMIDE 1% OPHTH SOLN 15ML OS SCH
== END ==
LOC: M WUC 12:06
PROVIDERS: ATTEND Family Medicine
DX: M25.551 Pain in right hip (principal); M19.012 Primary osteoarthritis, left shoulder

== ENCOUNTER → 2023-10-28 | Outpatient (CLI) | payer OTHER | LOC: M WUC 15:33 | PROVIDERS: ATTEND Physician Assistant | DX: M54.2 Cervicalgia (principal); S43.492A Other sprain of left shoulder joint, initial encounter; W18.30XA Fall on same level, unspecified, initial encounter; Y92.009 Unspecified place in unspecified non-institutional (private) residence as the place of occurrence of the external cause ==

== ENCOUNTER → 2024-04-14 | Outpatient (CLI) | payer OTHER ==
[~2024-04-14] MED LIST changes: +GABA-1490 PO; -GABA600T4 PO; +ONDA-282 PO; +ONDA-284 PO; -ONDA4TAB6 PO; -ONDA8TAB8 PO; +PROHANCE 279.3MG/ML 15ML VIAL As Ordered ONE
== END ==
LOC: M RAD 14:40
PROVIDERS: ATTEND Anesthesiology
DX: M19.012 Primary osteoarthritis, left shoulder (principal); M48.02 Spinal stenosis, cervical region; M47.812 Spondylosis without myelopathy or radiculopathy, cervical region; M96.1 Postlaminectomy syndrome, not elsewhere classified
CPT/HCPCS: 72156; 73221; A9576

== ENCOUNTER → 2024-05-04 | Outpatient (CLI) | payer OTHER ==
[~2024-05-04] MED LIST changes: +GABA-1172 PO; -GABA-282 PO; -PROHANCE 279.3MG/ML 15ML VIAL As Ordered ONE
== END ==
LOC: M PAIN 16:30
PROVIDERS: ATTEND Anesthesiology
DX: M96.1 Postlaminectomy syndrome, not elsewhere classified (principal); K58.9 Irritable bowel syndrome, unspecified; R42 Dizziness and giddiness; M54.50 Low back pain, unspecified; M25.552 Pain in left hip; M54.2 Cervicalgia; E11.9 Type 2 diabetes mellitus without complications; Z79.84 Long term (current) use of oral hypoglycemic drugs; Z79.899 Other long term (current) drug therapy

== ENCOUNTER → 2024-06-09 | Outpatient (CLI) | payer OTHER ==
[~2024-06-09] MED LIST changes: -CYCL5TAB PO; +CYCL5TAB4 PO
== END ==
LOC: M PAIN 16:30
PROVIDERS: ATTEND Anesthesiology
DX: M25.512 Pain in left shoulder (principal); M79.602 Pain in left arm; M96.1 Postlaminectomy syndrome, not elsewhere classified; R42 Dizziness and giddiness; G89.29 Other chronic pain; E11.9 Type 2 diabetes mellitus without complications; M54.50 Low back pain, unspecified; Z79.84 Long term (current) use of oral hypoglycemic drugs; Z79.899 Other long term (current) drug therapy

== ENCOUNTER → 2024-06-28 | Outpatient (CLI) | payer OTHER | LOC: M SOG 07:50 | PROVIDERS: ATTEND Orthopaedic Surgery | DX: M19.012 Primary osteoarthritis, left shoulder (principal); M54.2 Cervicalgia ==

== ENCOUNTER → 2024-07-23 | Outpatient (CLI) | payer OTHER | LOC: M PAIN 16:30 | PROVIDERS: ATTEND Anesthesiology | DX: M25.512 Pain in left shoulder (principal); M79.10 Myalgia, unspecified site; M79.18 Myalgia, other site; M53.3 Sacrococcygeal disorders, not elsewhere classified; M79.602 Pain in left arm; M96.1 Postlaminectomy syndrome, not elsewhere classified; R42 Dizziness and giddiness; G89.29 Other chronic pain; E11.9 Type 2 diabetes mellitus without complications; M54.50 Low back pain, unspecified; Z79.84 Long term (current) use of oral hypoglycemic drugs; Z79.899 Other long term (current) drug therapy ==

== ENCOUNTER 2024-11-15 07:09 | Day surgery (SDC) | payer BC, OTHER ==
[~2024-11-15] VITALS: Ht 165.1 cm; Wt 70.1 kg
[~2024-11-15 07:09] MED LIST changes: +CARI-555 PO; -CARI1TAB7 PO; +FARX1TAB3 PO; +ONDA-83 PO; +SEMA2PEN SC; +TOPA50TA8 PO
[2024-11-15 08:25] VITALS: TEMP 97
[2024-11-15 08:41] VITALS: BP 122/74; O2SAT 99
[2024-11-15] MEDS ORDERED: propofoL 200 MG/20 ML VIAL As Ordered ONE (08:43)
== END 2024-11-15 08:44 | disposition home or self-care (01) ==
LOC: M SDC 07:09
PROVIDERS: ATTEND Internal Medicine Gastroenterology
DX: Z86.0100 Personal history of colon polyps, unspecified (principal); K64.0 First degree hemorrhoids; E11.9 Type 2 diabetes mellitus without complications; G47.30 Sleep apnea, unspecified; Z79.899 Other long term (current) drug therapy

== ENCOUNTER → 2025-02-21 | Outpatient (REF) | payer BC ==
[~2025-02-21] MED LIST changes: -FLOM0.4C39 PO; +TAMS-18 PO
[2025-02-21 18:02] LABS: CREATININE, URINE 149.0 MG/DL; MALB URINE SIEMENS 5.0 MG/L; MAU/CREAT RATIO 3.3 MCG/MG (0.0-30.0)
== END ==
LOC: M LAB REF 16:55
PROVIDERS: ATTEND Family Medicine
DX: I10 Essential (primary) hypertension (principal); E11.40 Type 2 diabetes mellitus with diabetic neuropathy, unspecified; E55.9 Vitamin D deficiency, unspecified

== ENCOUNTER → 2025-05-20 | Outpatient (REF) | payer BC | LOC: M LAB REF 17:03 | DX: R30.0 Dysuria (principal) ==

== ENCOUNTER 2025-05-23 11:40 | Observation (INO) | payer BC ==
[~2025-05-23] VITALS: Ht 165.1 cm; Wt 70.7 kg
[2025-05-23 12:45] LABS: BASO # 0.0 10^3/uL (0.0-0.2); BASO % 0.1 % (0.0-1.0); EOS # 0.0 10^3/uL (0.0-0.5); EOS % 0.0 % (0.0-3.0); LYMPH # 0.9 10^3/uL (1.5-5.0); LYMPH % 13.1 % (24.0-44.0); MONO # 0.4 10^3/uL (0.0-0.8); MONO % 6.3 % (2.0-8.0); NEUTROPHILS # 5.6 10^3/uL (1.5-8.5); NEUTROPHILS % 79.9 % (36.0-66.0); PLATELET COUNT, AUTOMATED 397 10^3/uL (150-450)
[2025-05-23 12:52] LABS: INR 0.96
[2025-05-23 13:24] LABS: CALCIUM LEVEL 9.7 MG/DL (8.3-10.6); CARBON DIOXIDE LEVEL 26 MMOL/L (20-31); CHLORIDE LEVEL 103 MMOL/L (98-107); CK-MB VALUE MASS < 1.0 NG/ML (<3.6); CPK CREATINE PHOSPHOKINASE 45 U/L (34-145); CREATININE FOR GFR 0.76 MG/DL (0.55-1.30); GLOMERULAR FILTRATION RATE 89.1 (>45); POTASSIUM SERUM 3.7 MMOL/L (3.5-5.1); SODIUM LEVEL 142 MMOL/L (136-145)
[2025-05-23] MEDS ORDERED: ISOVUE-370 76% 100 ML VIAL As Ordered ONE (16:15)
[2025-05-23] MEDS: MECLIZINE 25 MG TABLET PO ONE (16:32)
[2025-05-23] MEDS: ASPIRIN 81 MG CHEWABLE TABLET PO ONE (16:32)
[2025-05-23] MEDS: NS (Normal Saline) 0.9% 1,000 ML IV ONE (16:33)
[2025-05-23 17:13] LABS: CK-MB VALUE MASS < 1.0 NG/ML (<3.6)
[2025-05-23 17:15] LABS: CPK CREATINE PHOSPHOKINASE 36 U/L (34-145)
[2025-05-23] MEDS ORDERED: MECLIZINE 25 MG TABLET PO PRN (17:55)
[2025-05-23 18:21] VITALS: BP 146/72
[2025-05-23] MEDS: MIDODRINE 5 MG TAB PO ONE (18:21)
[2025-05-23] MEDS ORDERED: ONDA-282 PO (20:34)
[2025-05-23] MEDS ORDERED: HOME MED LIST COMPLETE! XX SCH (20:35)
[2025-05-23] MEDS ORDERED: TOPIRAMATE 25 MG TAB PO SCH (21:00)
[2025-05-23 21:45] LABS: KETONE, URINE AUTO RFX NEGATIVE (NEGATIVE); LEUKOCYTE ESTERASE UR AUTO RFX NEGATIVE (NEGATIVE); MUCUS, URINE RFX SMALL (NEGATIVE); NITRITE, URINE AUTO RFX NEGATIVE (NEGATIVE); RBC, URINE AUTO RFX 2 /HPF (0-3); SQUAM EPITHELIAL CELL UR AURFX 1 /HPF (0-6); WBC, URINE AUTO RFX 8 /HPF (0-3)
[2025-05-23 22:08] LABS: AMPHETAMINES LEVEL URINE NEGATIVE (NEGATIVE); BARBITURATES URINE NEGATIVE (NEGATIVE); COCAINE METABOLITE URINE NEGATIVE (NEGATIVE); METHADONE URINE NEGATIVE (NEGATIVE)
[2025-05-23 22:09] LABS: BENZODIAZEPINES URINE NEGATIVE (NEGATIVE); CANNABINOIDS URINE NEGATIVE (NEGATIVE); OPIATES URINE NEGATIVE (NEGATIVE); PHENCYCLIDINE URINE NEGATIVE (NEGATIVE)
[2025-05-23 22:30] VITALS: BP 165/77; TEMP 97.2; O2SAT 97
[2025-05-23 22:33] VITALS: BP_SYST 126; BP_SYST 144; BP_SYST 165; BP_DIAS 62; BP_DIAS 68; BP_DIAS 77
[2025-05-23] MEDS: GABAPENTIN 100 MG CAP PO SCH (22:44)
[2025-05-23 23:49] LABS: CK-MB VALUE MASS < 1.0 NG/ML (<3.6)
[2025-05-23 23:50] LABS: CPK CREATINE PHOSPHOKINASE 43 U/L (34-145)
[2025-05-24 02:57] VITALS: BP 118/57; TEMP 97.7; O2SAT 97
[2025-05-24 06:26] LABS: ESTIMATED AVERAGE GLUCOSE 123.0 MG/DL (60-110)
[2025-05-24 06:29] LABS: PLATELET COUNT, AUTOMATED 339 10^3/uL (150-450)
[2025-05-24 06:35] LABS: CK-MB VALUE MASS 1.1 NG/ML (<3.6)
[2025-05-24 06:36] LABS: CPK CREATINE PHOSPHOKINASE 37 U/L (34-145); MB/CK RELATIVE INDEX 2.97 (< OR =4)
[2025-05-24 06:47] LABS: ATYPICAL LYMPH 5 % (0-5); LYMPHOCYTES 30 % (16-44); MONOCYTES 5 % (0-5); NEUTROPHILS 60 % (28-66)
[2025-05-24 06:48] LABS: CALCIUM LEVEL 8.9 MG/DL (8.3-10.6); CARBON DIOXIDE LEVEL 28.0 MMOL/L (20-31); CHLORIDE LEVEL 108.0 MMOL/L (98-107); CHOLESTEROL LEVEL 129.0 MG/DL (<200); CHOLESTEROL RISK RATIO 5.07 (<5); CREATININE FOR GFR 0.82 MG/DL (0.55-1.30); GLOMERULAR FILTRATION RATE 81.3 (>45); LDL CHOLESTEROL 77.0 MG/DL (<100); NON-HDL-C 103.6 MG/DL; PLATELET ESTIMATE NORMAL (NORMAL); POTASSIUM SERUM 3.4 MMOL/L (3.5-5.1); SODIUM LEVEL 147.0 MMOL/L (136-145); TRIGLYCERIDES LEVEL 133.0 MG/DL (<150)
[2025-05-24 08:15] VITALS: BP 124/69; TEMP 97.4; O2SAT 99
[2025-05-24] MEDS: POTASSIUM CHLORIDE 10MEQ SR TABLET PO ONE (08:34)
[2025-05-24 09:46] VITALS: BP_SYST 100; BP_SYST 107; BP_SYST 116; BP_DIAS 59; BP_DIAS 61; BP_DIAS 67
[2025-05-24 11:21] LABS: CK-MB VALUE MASS < 1.0 NG/ML (<3.6)
[2025-05-24 11:23] LABS: CPK CREATINE PHOSPHOKINASE 38 U/L (34-145)
[2025-05-24 12:00] VITALS: BP 125/70; TEMP 97.7; O2SAT 98
[2025-05-24 20:22] VITALS: BP 121/64; TEMP 97.3; O2SAT 97
[2025-05-24 20:30] VITALS: BP_SYST 105; BP_SYST 113; BP_SYST 120; BP_DIAS 60; BP_DIAS 70
[2025-05-25 00:01] VITALS: BP 108/66; TEMP 97.9; O2SAT 96
[2025-05-25 03:49] VITALS: BP 118/67; TEMP 98; O2SAT 97
[2025-05-25 06:12] LABS: BASO # 0.0 10^3/uL (0.0-0.2); BASO % 0.6 % (0.0-1.0); EOS # 0.2 10^3/uL (0.0-0.5); EOS % 2.4 % (0.0-3.0); LYMPH # 2.6 10^3/uL (1.5-5.0); LYMPH % 37.7 % (24.0-44.0); MONO # 0.5 10^3/uL (0.0-0.8); MONO % 7.6 % (2.0-8.0); NEUTROPHILS # 3.6 10^3/uL (1.5-8.5); NEUTROPHILS % 51.1 % (36.0-66.0); PLATELET COUNT, AUTOMATED 357 10^3/uL (150-450)
[2025-05-25 06:46] LABS: CALCIUM LEVEL 8.8 MG/DL (8.3-10.6); CARBON DIOXIDE LEVEL 29.0 MMOL/L (20-31); CHLORIDE LEVEL 109.0 MMOL/L (98-107); CREATININE FOR GFR 0.8 MG/DL (0.55-1.30); GLOMERULAR FILTRATION RATE 83.8 (>45); POTASSIUM SERUM 4.0 MMOL/L (3.5-5.1); SODIUM LEVEL 148.0 MMOL/L (136-145)
[2025-05-25] MEDS: ENOXAPARIN 40 MG/0.4 ML SYRINGE (J1650 PER 10MG) SC SCH (08:36)
[2025-05-25 12:00] VITALS: BP 128/73; TEMP 98.1; O2SAT 96
[2025-05-25 16:00] VITALS: BP 138/75; TEMP 97.8; O2SAT 97
== END 2025-05-25 18:25 | disposition home or self-care (01) ==
LOC: M ED 11:40 → M ED INP 11:41 → UNDOADMOB 17:52 → OBSVTOIN 17:53 → INTOOBSV 17:53 → M MS4PR 22:24 → M ED INP 22:24 → M MS4PR 22:24
PROVIDERS: ADMIT General Practice; ATTEND Student in an Organized Health Care Education/Training Program
DX: I95.1 Orthostatic hypotension (principal); R42 Dizziness and giddiness; R26.89 Other abnormalities of gait and mobility; R53.1 Weakness; B97.4 Respiratory syncytial virus as the cause of diseases classified elsewhere; R07.1 Chest pain on breathing; G31.1 Senile degeneration of brain, not elsewhere classified; E78.5 Hyperlipidemia, unspecified; G47.33 Obstructive sleep apnea (adult) (pediatric); E11.9 Type 2 diabetes mellitus without complications; G50.0 Trigeminal neuralgia; G25.81 Restless legs syndrome; R51.9 Headache, unspecified; M54.40 Lumbago with sciatica, unspecified side; Z98.1 Arthrodesis status; E53.8 Deficiency of other specified B group vitamins; E55.9 Vitamin D deficiency, unspecified; F32.A Depression, unspecified; Z90.710 Acquired absence of both cervix and uterus; Z98.51 Tubal ligation status; Z91.81 History of falling; Z79.899 Other long term (current) drug therapy; Z79.84 Long term (current) use of oral hypoglycemic drugs
CPT/HCPCS: 36415; 70450; 70551; 71045; 71275; 80048; 80061; 80307; 81001; 82550; 82553; 83036; 84132; 84443; 84484; 85025; 85610; 85730; 86850; 86900; 86901; 87486; 87581; 87633; 87798; 93005; 93041; 93306; 94760; 96372; 97162; 97165; 97530; 99285; J1650; Q9967

== ENCOUNTER → 2025-05-31 | Outpatient (REF) | payer BC ==
[2025-05-31 18:15] LABS: BASO # 0.1 10^3/uL (0.0-0.2); BASO % 0.5 % (0.0-1.0); EOS # 0.1 10^3/uL (0.0-0.5); EOS % 1.1 % (0.0-3.0); LYMPH # 4.8 10^3/uL (1.5-5.0); LYMPH % 41.9 % (24.0-44.0); MONO # 0.8 10^3/uL (0.0-0.8); MONO % 6.7 % (2.0-8.0); NEUTROPHILS # 5.6 10^3/uL (1.5-8.5); NEUTROPHILS % 49.0 % (36.0-66.0); PLATELET COUNT, AUTOMATED 536 10^3/uL (150-450)
[2025-05-31 18:41] LABS: ALT/SGPT 21 U/L (7.0-40); AST/SGOT 20 U/L (<34); CALCIUM LEVEL 9.6 MG/DL (8.3-10.6); CARBON DIOXIDE LEVEL 29 MMOL/L (20-31); CHLORIDE LEVEL 105 MMOL/L (98-107); CREATININE FOR GFR 0.75 MG/DL (0.55-1.30); GLOMERULAR FILTRATION RATE > 90.0 (>45); POTASSIUM SERUM 4.0 MMOL/L (3.5-5.1); SODIUM LEVEL 145 MMOL/L (136-145)
[2025-05-31 19:09] LABS: ESTIMATED AVERAGE GLUCOSE 134.0 MG/DL (60-110)
== END ==
LOC: M LAB REF 17:31
PROVIDERS: ATTEND Family Medicine
DX: R10.13 Epigastric pain (principal); E11.40 Type 2 diabetes mellitus with diabetic neuropathy, unspecified; R07.9 Chest pain, unspecified

== ENCOUNTER → 2025-06-16 | Outpatient (CLI) | payer BC ==
[~2025-06-16] MED LIST changes: +ISOVUE-370 76% 100 ML VIAL As Ordered ONE
== END ==
LOC: M RAD 14:46
PROVIDERS: ATTEND Family Medicine
DX: K57.90 Diverticulosis of intestine, part unspecified, without perforation or abscess without bleeding (principal); K76.0 Fatty (change of) liver, not elsewhere classified
CPT/HCPCS: 74177; Q9967

== ENCOUNTER → 2025-06-24 | Outpatient (REF) | payer BC ==
[~2025-06-24] MED LIST changes: -ISOVUE-370 76% 100 ML VIAL As Ordered ONE
[2025-06-24 15:36] LABS: BASO # 0.0 10^3/uL (0.0-0.2); BASO % 0.6 % (0.0-1.0); EOS # 0.1 10^3/uL (0.0-0.5); EOS % 2.0 % (0.0-3.0); LYMPH # 2.4 10^3/uL (1.5-5.0); LYMPH % 33.6 % (24.0-44.0); MONO # 0.5 10^3/uL (0.0-0.8); MONO % 7.0 % (2.0-8.0); NEUTROPHILS # 4.0 10^3/uL (1.5-8.5); NEUTROPHILS % 56.5 % (36.0-66.0); PLATELET COUNT, AUTOMATED 318 10^3/uL (150-450)
[2025-06-24 15:54] LABS: ALT/SGPT 25 U/L (7.0-40); AST/SGOT 23 U/L (<34); CALCIUM LEVEL 9.4 MG/DL (8.3-10.6); CARBON DIOXIDE LEVEL 28 MMOL/L (20-31); CHLORIDE LEVEL 106 MMOL/L (98-107); CHOLESTEROL LEVEL 200 MG/DL (<200); CHOLESTEROL RISK RATIO 3.49 (<5); CREATININE FOR GFR 0.71 MG/DL (0.55-1.30); GLOMERULAR FILTRATION RATE > 90.0 (>45); LDL CHOLESTEROL 116.6 MG/DL (<100); NON-HDL-C 142.8 MG/DL; POTASSIUM SERUM 4.5 MMOL/L (3.5-5.1); SODIUM LEVEL 145 MMOL/L (136-145); TRIGLYCERIDES LEVEL 131 MG/DL (<150)
[2025-06-24 16:43] LABS: ESTIMATED AVERAGE GLUCOSE 128.0 MG/DL (60-110)
== END ==
LOC: M LAB REF 12:28
PROVIDERS: ATTEND Family Medicine
DX: I10 Essential (primary) hypertension (principal); E07.9 Disorder of thyroid, unspecified; E78.00 Pure hypercholesterolemia, unspecified; E11.40 Type 2 diabetes mellitus with diabetic neuropathy, unspecified